=== PATIENT | male | born 1970 | race Caucasian/White ===

== ENCOUNTER 2017-02-13 09:00 | Inpatient (IN) | payer BC ==
--- NOTE | 2017-02-13 09:19 | PDOC ---
History of Present Illness - General Chief Complaint: Chest Pain Stated Complaint: SYNCOPE, CHEST PAIN Time Seen by Provider: 02/13/17 09:15 Exam Limitations: Clinical Condition - History of Present Illness Initial Comments: 02/13/17 09:15 46-year-old male with history of hypertension and psychiatric disease presents the emergency department initially complaining of chest pain and then passed out into a wheelchair in the lobby and was brought into the emergency department. The patient is unable to provide history. Past History - Past Medical History Allergies/Adverse Reactions: Allergies Allergy/AdvReac Type Severity Reaction Status Date / Time No Known Allergies Allergy Verified 02/13/17 09:24 Home Medications: Ambulatory Orders Amlodipine Besylate 5 mg PO DAILY 02/13/17 Cetirizine HCl [Zyrtec -] 10 mg PO DAILY 02/13/17 Duloxetine HCl 60 mg PO ASDIR 02/13/17 Escitalopram Oxalate [Lexapro -] 10 mg PO DAILY 02/13/17 - Psycho/Social/Smoking Cessation Hx Suicidal Ideation: No Smoking History: Never smoked Hx Alcohol Use: No Drug/Substance Use Hx: No Review of Systems - Review of Systems Able to Perform ROS?: No *Physical Exam - Vital Signs Last Vital Signs Temp Pulse Resp BP Pulse Ox 115 H 20 0/0 99 02/13/17 09:05 02/13/17 09:05 02/13/17 09:05 02/13/17 09:05 - Physical Exam Comments: 02/13/17 09:16 GENERAL: Well developed, well nourished. Responsive to deep painful stimuli with eye opening and verbalizing minimally. HEENT: Normocephalic, atraumatic. pupils are 8mm and reactive. No conjunctival pallor. Sclera are non-icteric. Moist mucous membranes. Oropharynx is clear. NECK: Supple. Full ROM. No JVD. No lymphadenopathy. CARDIOVASCULAR: Regular rate and rhythm, tachycardic. No murmurs, rubs, or gallops. Distal pulses are 2+ and symmetric. PULMONARY: No evidence of respiratory distress. Lungs clear to auscultation bilaterally. No wheezing, rales or rhonchi. ABDOMINAL: Soft. Non-tender. Non-distended. No rebound or guarding. No organomegaly. Normoactive bowel sounds. MUSCULOSKELETAL Unable to assess EXTREMITIES: No edema SKIN: Warm and dry. Normal capillary refill. No rashes. No jaundice. NEUROLOGICAL: Responsive to deep painful stimuli with eye opening and verbalizing minimally. There are +corneal reflexes. PSYCHIATRIC: Unable to assess. ED Treatment Course - LABORATORY CBC & Chemistry Diagram: 02/13/17 09:09 02/13/17 09:09 Medical Decision Making - Medical Decision Making 02/13/17 09:18 46-year-old male with history of hypertension and psychiatric disease with complaints of chest pain and syncope; he now has altered mental status. Differential diagnosis includes but is not limited to: ACS, CVA, intracranial hemorrhage, intoxication, electrolyte abnormality, infection, toxic/metabolic derangement. Plan: 1. EKGshows sinus tachycardia at [address]pm with no acute ST segment changes. 2. CT head 3. Chest x-ray 4. Labs 5. Urine analysis and urine drug screen 6. Observe and reevaluate 02/13/17 10:55 Addendum: The patient is now awake, alert and oriented. The patient complains of left-sided chest pain and requests medication because he says that he is grieving the loss of his father for the past 2 weeks. The patient states that he took Cymbalta this morning and has no recollection of the prior events that occurred upon his arrival to the emergency department; in fact he doesn't know how he got here. The labs are reviewed and are noted in the EMR. CT head is negative for acute pathology. Chest x-ray is negative. Urine drug screen is negative. The plan is to admit the patient to telemetry for serial cardiac markers, neurology checks and syncope workup. I have ordered Ativan 0.5 mg IV *DC/Admit/Observation/Transfer Diagnosis at time of Disposition: Altered mental status, Syncope, Chest pain - Discharge Dispostion Disposition: HOME Condition at time of disposition: Stable Admit: Yes
[2017-02-13 09:25] LABS: BASOPHIL 0.8 % (0-2.0); EOSINOPHIL 0.1 % (0-4.5); MCH 27.8 pg (25.7-33.7); MCHC 33.8 g/dl (32.0-35.9); MEAN CELL VOLUME 82.4 fl (80-96); MEAN PLT VOLUME 9.9 fl (7.5-11.1); NEUTROPHILS 82.8 % (42.8-82.8); PLATELET COUNT 201 K/MM3 (134-434); WHITE BLOOD COUNT 9.2 K/mm3 (4.0-10.8)
[2017-02-13 09:46] LABS: URINE APPEARANCE Clear; URINE BILIRUBIN Negative (NEGATIVE); URINE BLOOD Trace-lysed (NEGATIVE); URINE GLUCOSE (UA) Negative (NEGATIVE); URINE KETONE Negative (NEGATIVE); URINE LEUK ESTERASE Negative (NEGATIVE); URINE NITRITE Negative (NEGATIVE); URINE UROBILINOGEN 0.2 E.U/dl (0.2-1.0)
[2017-02-13 09:49] LABS: URINE COLOR YELLOW; URINE PROTEIN 2+ (NEGATIVE)
[2017-02-13 10:09] LABS: CPK(DFH) 366 IU/L (38-174)
[2017-02-13 10:12] LABS: ALBUMIN 4.5 g/dl (3.5-5.0); ALK PHOS 93 U/L (32-92); ANION GAP 15 (8-16); BILIRUBIN,TOTAL 0.4 mg/dl (0.2-1.0); CALCIUM 8.7 mg/dl (8.4-10.2); CO2 24 mmol/L (22-28); CREATININE 0.7 mg/dl (0.6-1.3); GLUCOSE,RANDOM 200 mg/dl (74-106); SGOT/AST 36 U/L (10-42); SGPT/ALT 40 U/L (10-40); TOT PROT 7.7 g/dl (6.4-8.3)
[2017-02-13 10:26] LABS: URINE MARIJUANA THC NEGATIVE ng/ml (CUTOFF=50)
[2017-02-13 10:37] LABS: TROPONIN I (DFP) < 0.03 ng/ml (0.03-0.50)
[2017-02-13] MEDS ORDERED: HEMOQUE TEST 1 EACH EACH ONE ×2 (10:41→14:21)
[2017-02-13] MEDS ORDERED: LORAZEPAM CARPU-JECT 2 MG/ML DISP.SYRIN ONE ×2 (10:57→13:40)
[2017-02-13 11:00] LABS: URINE BACTERIA RARE /hpf (NEGATIVE); URINE RBC 0-2 /hpf (0-3); URINE WBC NONE SEEN (3-5)
[2017-02-13] MEDS: LORAZEPAM CARPU-JECT 2 MG/ML DISP.SYRIN IVPUSH ONE (11:00)
[2017-02-13] MEDS ORDERED: SODIUM CHLORIDE 1,000 ML IV STA (11:50)
[2017-02-13] MEDS ORDERED: SODIUM CHLORIDE 1,000 ML IV ONE (12:08)
[2017-02-13] MEDS ORDERED: ONDANSETRON 4 MG/2 ML VIAL IVPUSH ONE ×2 (13:19→17:59)
[2017-02-13] MEDS ORDERED: FOLIC ACID INJECTION - 1 MG, THIAMINE HCL 100 MG, MULTIVIT INJECTION ADULT 10 ML in SOD... IVPB ONE (13:19)
[2017-02-13] MEDS ORDERED: ONDANSETRON 4 MG/2 ML VIAL ONE (13:19)
[2017-02-13] MEDS ORDERED: POTASSIUM CHLORIDE TABS 20 MEQ TABLET.ER (FP) PO ONE ×2 (13:21→15:25)
[2017-02-13] MEDS ORDERED: DULoxetine HCL 60 MG CAPSULE.DR PO SCH (13:30)
[2017-02-13] MEDS ORDERED: LORAZEPAM CARPU-JECT 2 MG/ML DISP.SYRIN IVPUSH ONE ×2 (13:40→18:44)
[2017-02-13] MEDS ORDERED: MULTIVIT INJ. ADULT COMBO WITH VIT K 1 COMBO 10 ML VIAL IV ONE (14:18)
[2017-02-13] MEDS ORDERED: FOLIC ACID 5 MG/1 ML ONE (14:18)
[2017-02-13] MEDS ORDERED: THIAMINE HCL 200 MG/2 ML VIAL ONE (14:18)
[2017-02-13] MEDS ORDERED: DULoxetine HCL 30 MG CAPSULE.DR (FP) PO ONE (15:35)
[2017-02-13 17:34] LABS: TROPONIN I (DFP) 0.03 ng/ml (0.03-0.50)
--- NOTE | 2017-02-13 17:53 | EKG ---
Test Reason : Blood Pressure : / mmHG Vent. Rate : 114 BPM Atrial Rate : 114 BPM P-R Int : 140 ms QRS Dur : 092 ms QT Int : 320 ms P-R-T Axes : 050 -30 048 degrees QTc Int : 441 ms POOR DATA QUALITY, INTERPRETATION MAY BE ADVERSELY AFFECTED SINUS TACHYCARDIA LEFT AXIS DEVIATION WHEN COMPARED WITH ECG OF 12-FEB-2000 17:43, NO SIGNIFICANT CHANGE WAS FOUND Confirmed by MD RACHAEL, RC ([id number] on 02/13/2017 5:52:29 PM Referred By: SHANTANU HARRINGTON Confirmed By:RC CANO MD
[2017-02-13] MEDS ORDERED: FAMOTIDINE 20 MG/50 ML IVPB 50 ML IVPB ONE (18:05)
[2017-02-13 18:23] LABS: CK MB 4.1 ng/ml (0.3-4.0)
[2017-02-13 20:29] VITALS: BMI 32.2
[2017-02-13] MEDS ORDERED: D5-1/2NS+20 MEQ KCL - 1,000 ML IV SCH (22:00)
[2017-02-13 22:32] LABS: CALCIUM 7.9 mg/dl (8.4-10.2); COCKROFT - GAULT 189.14; CREATININE 0.6 mg/dl (0.6-1.3)
[2017-02-13 22:35] LABS: CPK(DFH) 326 IU/L (38-174)
[2017-02-13 22:45] LABS: TROPONIN I (DFP) < 0.03 ng/ml (0.03-0.50)
[2017-02-13 23:10] LABS: CK MB 3.9 ng/ml (0.3-4.0)
--- NOTE | 2017-02-13 23:14 | HP ---
CHIEF COMPLAINT: chest pain/syncope PCP: Daniel in [place] HISTORY OF PRESENT ILLNESS: This is a 46 year old male with a past medical history of Hypertension who presented to the ED with a complaint of chest pain. Pt also s/p syncope in ED waiting room. Upon exam, pt with c/o throat pain; denies any further chest pain. States he is under a lot of stress. ER course was notable for: (1) WBC 9.2, lactic acid elevated (2) Potassium 3.4 (3) Trop negative, CK 366 (4) EtOH 331 Recent Travel: pt denies PAST MEDICAL HISTORY: HTN PAST SURGICAL HISTORY: pt denies Social History: Smoking: pt denies Alcohol: pt denies Drugs: pt denies Family History: mother in her 60s, unknown etiology father age 52, [place] 4 brothers all : one in sleep; one age 45, unknown; one age 55 , unknown cause; one age 20, unknown cause Allergies No Known Allergies Allergy (Verified 02/13/17 09:24) HOME MEDICATIONS: 3 Medication Instructions Recorded Amlodipine Besylate 5 mg PO DAILY 02/13/17 Cetirizine HCl [Zyrtec -] 10 mg PO DAILY 02/13/17 Duloxetine HCl 60 mg PO ASDIR 02/13/17 Escitalopram Oxalate [Lexapro -] 10 mg PO DAILY 02/13/17 REVIEW OF SYSTEMS CONSTITUTIONAL: Present: malaise Absent: fever, chills, diaphoresis, generalized weakness, loss of appetite, weight change HEENT: Absent: rhinorrhea, nasal congestion, throat pain, throat swelling, difficulty swallowing, mouth swelling, ear pain, eye pain, visual changes CARDIOVASCULAR: Present: chest pain, syncope Absent: palpitations, irregular heart rate, lightheadedness, peripheral edema RESPIRATORY: Absent: cough, shortness of breath, dyspnea with exertion, orthopnea, wheezing, stridor, hemoptysis GASTROINTESTINAL: Absent: abdominal pain, abdominal distension, nausea, vomiting, diarrhea, constipation, melena, hematochezia GENITOURINARY: Absent: dysuria, frequency, urgency, hesitancy, hematuria, flank pain, genital pain MUSCULOSKELETAL: Absent: myalgia, arthralgia, joint swelling, back pain, neck pain SKIN: Absent: rash, itching, pallor HEMATOLOGIC/IMMUNOLOGIC: Absent: easy bleeding, easy bruising, lymphadenopathy, frequent infections ENDOCRINE: Absent: unexplained weight gain, unexplained weight loss, heat intolerance, cold intolerance NEUROLOGIC: Absent: headache, focal weakness or paresthesias, dizziness, unsteady gait, seizure, mental status changes, bladder or bowel incontinence PSYCHIATRIC: Absent: anxiety, depression, suicidal or homicidal ideation, hallucinations. PHYSICAL EXAMINATION Vital Signs - 24 hr 3 02/13/17 02/13/17 02/13/17 16:20 18:51 20:24 Temperature 98.2 F 99.1 F Pulse Rate 113 H Pulse Rate [ 81 116 H Apical] Respiratory 17 18 19 Rate Blood Pressure 157/83 Blood Pressure 140/86 178/101 [Right Arm] O2 Sat by Pulse 100 97 95 Oximetry (%) GENERAL: Awake, alert, and fully oriented, in no acute distress. HEAD: Normal with no signs of trauma. EYES: Pupils equal, round and reactive to light, extraocular movements intact, sclera anicteric, conjunctiva clear. No lid lag. EARS, NOSE, THROAT: Ears normal, nares patent, oropharynx clear without exudates. Moist mucous membranes. NECK: Normal range of motion, supple without lymphadenopathy, JVD, or masses. LUNGS: Breath sounds equal, clear to auscultation bilaterally. No wheezes, and no crackles. No accessory muscle use. HEART: Regular rate and rhythm, normal S1 and S2 without murmur, rub or gallop. ABDOMEN: Soft, nontender, not distended, normoactive bowel sounds, no guarding, no rebound, no masses. No hepatomegaly or splenomegaly. MUSCULOSKELETAL: Normal range of motion at all joints. No bony deformities or tenderness. No CVA tenderness. UPPER EXTREMITIES: 2+ pulses, warm, well-perfused. No cyanosis. No clubbing. No peripheral edema. LOWER EXTREMITIES: 2+ pulses, warm, well-perfused. No calf tenderness. No peripheral edema. NEUROLOGICAL: Cranial nerves II-XII intact. Normal speech. Normal gait. PSYCHIATRIC: Cooperative. Good eye contact. Appropriate mood and affect. SKIN: Warm, dry, normal turgor, no rashes or lesions noted, normal capillary refill. Laboratory Results - last 24 hr 3 02/13/17 02/13/17 02/13/17 02/13/17 02/13/17 09:09 09:09 09:09 09:32 12:43 WBC 9.2 RBC 5.61 H Hgb 15.6 Hct 46.2 MCV 82.4 MCHC 33.8 RDW 14.0 Plt Count 201 MPV 9.9 Neutrophils % 82.8 Lymphocytes % 10.7 Monocytes % 5.6 Eosinophils % 0.1 Basophils % 0.8 Sodium 141 Potassium 3.4 L Chloride 102 Carbon Dioxide 24 Anion Gap 15 BUN 19 H Creatinine 0.7 Creat Clearance w eGFR > 60 Random Glucose 200 H Lactic Acid 4.8 H* 3.5 H* Calcium 8.7 Total Bilirubin 0.4 AST 36 ALT 40 Alkaline Phosphatase 93 H Creatine Kinase 366 H Creatine Kinase Index CK-MB (CK-2) Cancelled CK-MB (CK-2) Rel Index 1.3 Troponin I < 0.03 L Total Protein 7.7 Albumin 4.5 Urine Color Urine Appearance Urine pH Ur Specific [place] Urine Protein Urine Glucose (UA) Urine Ketones Urine Blood Urine Nitrite Urine Bilirubin Urine Urobilinogen Ur Leukocyte Esterase Urine RBC Urine WBC Ur Epithelial Cells Urine Bacteria Opiates Screen Methadone Screen Barbiturate Screen Phencyclidine Screen Ur Amphetamines Screen MDMA (Ecstasy) Screen Benzodiazepines Screen Cocaine Screen U Marijuana (THC) Screen Alcohol, Quantitative 3 02/13/17 02/13/17 02/13/17 09:09 09:09 09:09 WBC RBC Hgb Hct MCV MCHC RDW Plt Count MPV Neutrophils % Lymphocytes % Monocytes % Eosinophils % Basophils % Sodium Potassium Chloride Carbon Dioxide Anion Gap BUN Creatinine Creat Clearance w eGFR Random Glucose Lactic Acid Calcium Total Bilirubin AST ALT Alkaline Phosphatase Creatine Kinase Creatine Kinase Index CK-MB (CK-2) CK-MB (CK-2) Rel Index Troponin I Total Protein Albumin Urine Color Yellow Urine Appearance Clear Urine pH 6.0 Ur Specific [place] >= 1.030 H Urine Protein 2+ H Urine Glucose (UA) Negative Urine Ketones Negative Urine Blood Trace-lysed Urine Nitrite Negative Urine Bilirubin Negative Urine Urobilinogen 0.2 e.u/dl Ur Leukocyte Esterase Negative Urine RBC 0-2 Urine WBC None seen Ur Epithelial Cells None seen Urine Bacteria Rare Opiates Screen Negative Methadone Screen Negative Barbiturate Screen Negative Phencyclidine Screen Negative Ur Amphetamines Screen Negative MDMA (Ecstasy) Screen Negative Benzodiazepines Screen Negative Cocaine Screen Negative U Marijuana (THC) Screen Negative Alcohol, Quantitative 331.2 H* 3 02/13/17 02/13/17 02/13/17 16:30 16:30 22:00 Sodium 139 Potassium 4.0 Chloride 105 Carbon Dioxide 25 Anion Gap 9 BUN 14 D Creatinine 0.6 Random Glucose 129 H D Calcium 7.9 L Creatine Kinase 310 H 326 H Creatine Kinase Index Cancelled CK-MB (CK-2) 4.1 H 3.9 Troponin I 0.03 < 0.03 L ECG: sinus tachycardia, Rate 114, QTC 441, Left axis deviation Imaging HEAD CT WITHOUT CONTRAST Clinical information. Unresponsive. CT scan of the brain C-. Findings. Serial axial images of the brain were obtained from foramen magnum to the cranial vertex without intravenous contrast. The head was tilted Whitney the acquisition of images. CSF spaces are age-appropriate. There is no evidence of acute subarachnoid hemorrhage, acute intra-axial or extra-axial fluid collection consistent with subdural or epidural hematoma. No mass effect, midline shift, herniation or edema is present. The cortical sulci, sylvian fissures, perimesencephalic cisterns are not effaced. Examination of the bone windows show no fracture. Retention cyst noted in the left maxillary sinus. No evidence of opacification of the visualized remaining paranasal sinuses, mastoid air cells. Impression. No evidence of acute intracranial hemorrhage, edema, midline shift, mass effect, herniation or skull fracture. No CT evidence of acute territorial infarction. No CT evidence of acute territorial infarction. RAD/CHEST - PA Unresponsive. Single portable chest x-ray. Shallow inspiration. Patient is rotated toward the right side. Cardiomegaly. Left lower lung zone obscured by the soft tissues of the chest. No airspace opacities are seen in the visualized lungs. No large pleural effusion is seen within the limitation of examination. EKG leads are noted. Impression. No pneumothorax, vascular congestion is seen. Limited evaluation of the lung parenchyma in the left lower lung zone, obscured by the soft tissues of the chest. Segmental left lower lobe infiltrate cannot be entirely excluded. Repeat study recommended. No airspace opacities are seen in the left upper lung zone, right lung. ASSESSMENT/PLAN: 46yM with PMH HTN who presented to the ED with chest pain and had a syncopal episode in ED. Pt has been admitted for further evaluation. Chest pain - troponin neg x 2 so far, repeat x 1 more - cont to control BP with home norvasc - doubtful ACS, pain has resolved and pt reports feeling bad about in family, likely emotional/stress related etiology - consider CTA/d-dimer to r/o PE if tachycardia persists despite IV hydration. syncope - head CT without acute CT changes - monitor on tele, r/o ectopy - will obtain echo given cardiomegaly on CXR Lactic acidosis - lactic acid trending down. Unclear etiology as pt does not appear septic or have any infectious related complaints. - cont to trend lactic acid. May be due to hypovolemia due to ETOH. - will repeat chest xray in am for better view ETOH abuse - pt denies daily alcohol use but does admit to heavy drinking 1-2 x weekly - Alcohol level 331 on admission - will cont IV hydration. s/p banana bag - monitor closely for any s/s withdrawal and start librium protocol. Mood disorder/depression - cont home duloxetine and lexapro - consider psychiatry consult DVT PPX - chemoprophylaxis deferred as expected LOS <48, reassess if LOS extends this period FEN - NS @ 125cc/hr - K repleted, repeat WNL, repeat BMP in am - low sodium diet as tolerated Dispo: Pt currently requires inpatient observation for management of his emergent condition. Expected LOS <48h Visit type - Emergency Visit Emergency Visit: Yes ED Registration Date: 02/13/17 Care time: The patient presented to the Emergency Department on the above date and was hospitalized for further evaluation of their emergent condition. - New Patient This patient is new to me today: Yes Date on this admission: 02/14/17 - Critical Care Critical Care patient: No
[2017-02-13 23:26] LABS: MAGNESIUM 1.8 mg/dL (1.8-2.4); PHOSPHOROUS 2.7 mg/dl (2.5-4.6)
[2017-02-14] MEDS ORDERED: SODIUM CHLORIDE 1,000 ML IV SCH ×2 (00:15→08:38)
[2017-02-14] MEDS ORDERED: LORAZEPAM CARPU-JECT 2 MG/ML DISP.SYRIN ONE (06:49)
[2017-02-14] MEDS: LORAZEPAM CARPU-JECT 2 MG/ML DISP.SYRIN IVPUSH ONE (06:53)
--- NOTE | 2017-02-14 08:29 | PN ---
Physical Exam: SUBJECTIVE: Patient seen and examined, patient reports ongoing epigastric pain with nausea, he reports feeling anxious, pt denies any chest pain or shortness of breath. OBJECTIVE: patient is a 46 y/o male with a past medical of hypertension and depression. patient was admitted for emergent condition. Vital Signs Period Temp Pulse Resp BP Sys/[place] Pulse Ox Last 24 Hr 98.2 F-99.1 F 81-116 17-20 140-182/83-101 95-100 GENERAL: The patient is awake, alert, and anxious, agitated. HEAD: Normal with no signs of trauma. EYES: PERRL, extraocular movements intact, sclera anicteric, conjunctiva clear. No ptosis. ENT: Ears normal, nares patent, oropharynx clear without exudates, moist mucous membranes. NECK: Trachea midline, full range of motion, supple. LUNGS: Breath sounds equal, clear to auscultation bilaterally, no wheezes, no crackles, no accessory muscle use. RR 24 HEART: Regular rate and rhythm, S1, S2 without murmur, rub or gallop. ABDOMEN: Soft, nontender, nondistended, normoactive bowel sounds, no guarding, no rebound, no hepatosplenomegaly, no masses. EXTREMITIES: 2+ pulses, warm, well-perfused, no edema, fine bilateral hand tremors NEUROLOGICAL: Cranial nerves II through XII grossly intact. Normal speech, gait not observed. PSYCH: Normal mood, normal affect. SKIN: Warm, dry, normal turgor, no rashes or lesions noted Laboratory Results - last 24 hr CBC WBC 8.4 K/mm3 (4.0-10.8) 02/14/17 08:10 RBC 5.23 M/mm3 (4.00-5.60) 02/14/17 08:10 Hgb 14.6 GM/dl (11.7-16.9) 02/14/17 08:10 Hct 43.2 % (35.4-49) 02/14/17 08:10 MCV 82.6 fl (80-96) 02/14/17 08:10 MCHC 33.8 g/dl (32.0-35.9) 02/14/17 08:10 RDW 13.9 % (11.9-15.9) 02/14/17 08:10 Plt Count 170 K/MM3 (134-434) 02/14/17 08:10 MPV 10.1 fl (7.5-11.1) 02/14/17 08:10 Neutrophils % 78.9 % (42.8-82.8) 02/14/17 08:10 Lymphocytes % 10.9 % (8-40) 02/14/17 08:10 Monocytes % 8.6 % (3.8-10.2) 02/14/17 08:10 Eosinophils % 0.8 % (0-4.5) D 02/14/17 08:10 Basophils % 0.8 % (0-2.0) 02/14/17 08:10 CMP Sodium 137 mmol/L (136-145) 02/14/17 08:10 Potassium 3.8 mmol/L (3.5-5.1) 02/14/17 08:10 Chloride 102 mmol/L (98-107) 02/14/17 08:10 Carbon Dioxide 25 mmol/L (22-28) 02/14/17 08:10 Anion Gap 10 (8-16) 02/14/17 08:10 BUN 11 mg/dl (7-18) D 02/14/17 08:10 Creatinine 0.6 mg/dl (0.6-1.3) 02/14/17 08:10 Creat Clearance w eGFR > 60 (>60) 02/13/17 09:09 Random Glucose 123 mg/dl (74-106) H 02/14/17 08:10 Hemoglobin A1c % 6.0 % (4.8-6.0) 02/14/17 08:10 Lactic Acid 2.2 mmol/L (0.4-2.0) H* 02/14/17 08:10 Calcium 8.3 mg/dl (8.4-10.2) L 02/14/17 08:10 Phosphorus 2.7 mg/dl (2.5-4.6) 02/13/17 22:00 Magnesium 1.8 mg/dL (1.8-2.4) 02/13/17 22:00 Total Bilirubin 0.4 mg/dl (0.2-1.0) 02/13/17 09:09 AST 36 U/L (10-42) 02/13/17 09:09 ALT 40 U/L (10-40) 02/13/17 09:09 Alkaline Phosphatase 93 U/L (32-92) H 02/13/17 09:09 Creatine Kinase 326 IU/L (38-174) H 02/13/17 22:00 Creatine Kinase Index Cancelled 02/13/17 16:30 CK-MB (CK-2) 3.9 ng/ml (0.3-4.0) 02/13/17 22:00 CK-MB (CK-2) Rel Index 1.3 % (0.0-5.0) 02/13/17 09:09 Troponin I < 0.03 ng/ml (0.03-0.50) L 02/13/17 22:00 Total Protein 7.7 g/dl (6.4-8.3) 02/13/17 09:09 Albumin 4.5 g/dl (3.5-5.0) 02/13/17 09:09 Active Medications Generic Name Dose Route Start Last Admin Trade Name Freq PRN Reason Stop Dose Admin Amlodipine Besylate 10 mg 02/14/17 10:00 02/14/17 09:38 Norvasc - PO 10 mg DAILY SAAD Administration Chlordiazepoxide HCl 25 mg 02/14/17 10:17 Librium - PO 02/17/17 10:16 Q4H PRN WITHDRAWAL(CONT SUBST) Chlordiazepoxide HCl 50 mg 02/14/17 11:00 02/14/17 11:12 Librium - PO 02/15/17 05:01 50 mg [id number] SAAD Administration Chlordiazepoxide HCl 25 mg 02/15/17 11:00 Librium - PO 02/16/17 05:01 [id number] SAAD Chlordiazepoxide HCl 15 mg 02/16/17 11:00 Librium - PO 02/17/17 05:01 [id number] SAAD Duloxetine HCl 60 mg 02/14/17 10:00 02/14/17 10:33 Cymbalta - PO 60 mg DAILY SAAD Administration Escitalopram Oxalate 10 mg 02/15/17 10:00 Lexapro - PO DAILY SAAD Folic Acid 1 mg 02/14/17 15:00 Folic Acid - PO DAILY SAAD Sodium Chloride 1,000 mls @ 75 mls/hr 02/14/17 08:38 02/14/17 08:40 Normal Saline - IV 75 mls/hr ASDIR SAAD Administration Multivitamins/Minerals/Vitamin C 1 tab 02/14/17 15:00 Tab-A-Vit - PO DAILY SAAD Imaging HEAD CT WITHOUT CONTRAST. Impression. No evidence of acute intracranial hemorrhage, edema, midline shift, mass effect, herniation or skull fracture. No CT evidence of acute territorial infarction. No CT evidence of acute territorial infarction. RAD/CHEST - Impression. No pneumothorax, vascular congestion is seen. Limited evaluation of the lung parenchyma in the left lower lung zone, obscured by the soft tissues of the chest. Segmental left lower lobe infiltrate cannot be entirely excluded. Repeat study recommended. No airspace opacities are seen in the left upper lung zone, right lung. CTA OF CHEST- no pulmonary embolism no acute pathology CT OF ABD/PELVIS- diffuse fatty liver, no acute pathology ASSESSMENT/PLAN: 1) card Chest pain - troponin x 3 wnl, sinus tach noted on cardiac monitoring, cta of chest negative for PE - pending echo hypertension - b/p elevated, increase norvasc, will start toprol - b/p monitoring q4h syncope - likely secondary due to hypovolemia, continous cardiac monitoring 2) psych ETOH abuse - admits drinking daily (1 bottle of rum) for the past 2 weeks - ciwa-ar score of 15, will start librium protocol with close monitoring of sedation, q4h neurochecks - appreciate input of Dr Marshall depression - continue duloxetine and lexapro 3) lactic acidosis - trending downward, secondary to hypovolemia, doubt infectious origin, f/u blood and urine culture PPX - lovenox - protonix - oob - scd FEN - d51/2 NS @ 75ml/hr - low sodium diet Dispo: Pt requires inpatient telemetry Visit type - Emergency Visit Emergency Visit: Yes ED Registration Date: 02/13/17 Care time: The patient presented to the Emergency Department on the above date and was hospitalized for further evaluation of their emergent condition. - New Patient This patient is new to me today: Yes Date on this admission: 02/14/17 - Critical Care Critical Care patient: No - Discharge Referral Referred to [facility] No
[2017-02-14 08:41] LABS: BASOPHIL 0.8 % (0-2.0); EOSINOPHIL 0.8 % (0-4.5); MCHC 33.8 g/dl (32.0-35.9); MEAN CELL VOLUME 82.6 fl (80-96); MEAN PLT VOLUME 10.1 fl (7.5-11.1); NEUTROPHILS 78.9 % (42.8-82.8); PLATELET COUNT 170 K/MM3 (134-434); RDW 13.9 % (11.9-15.9); WHITE BLOOD COUNT 8.4 K/mm3 (4.0-10.8)
[2017-02-14] MEDS ORDERED: PANTOPRAZOLE SODIUM 100 ML IVPB ONE (09:00)
[2017-02-14 09:14] LABS: ANION GAP 10 (8-16); CALCIUM 8.3 mg/dl (8.4-10.2); CO2 25 mmol/L (22-28); CREATININE 0.6 mg/dl (0.6-1.3); GLUCOSE,RANDOM 123 mg/dl (74-106)
[2017-02-14] MEDS: amLODIPine BESYLATE 10 MG TABLET (FP) PO SCH (09:38)
[2017-02-14] MEDS ORDERED: ESCITALOPRAM OXALATE 10 MG TABLET (FP) PO SCH ×2 (10:00)
[2017-02-14] MEDS ORDERED: amLODIPine BESYLATE 5 MG TABLET (FP) PO SCH (10:00)
[2017-02-14] MEDS ORDERED: chlordiazePOXIDE HCL 25 MG CAPSULE PO PRN (10:17)
[2017-02-14] MEDS ORDERED: chlordiazePOXIDE HCL 25 MG CAPSULE PO ONE (10:30)
[2017-02-14] MEDS: DULoxetine HCL 30 MG CAPSULE.DR (FP) PO SCH (10:33)
[2017-02-14] MEDS ORDERED: LORAZEPAM CARPU-JECT 2 MG/ML DISP.SYRIN IVPUSH ONE (11:00)
[2017-02-14] MEDS: chlordiazePOXIDE HCL 25 MG CAPSULE PO SCH ×3 (11:12→22:20)
[2017-02-14] MEDS: D5-1/2NS+20 MEQ KCL - 1,000 ML IV SCH (15:00)
[2017-02-14] MEDS ORDERED: MAGNESIUM SULF 50% (8.12 MEQ/2 ML-1 GM VIAL) IVPB ONE (15:06)
--- NOTE | 2017-02-14 15:43 | CONSULT ---
Consult Detox [facility] Reason for Current Admission/Consult: Alcohol withdrawal sx. Referred by:: Alesha Lora NP - History Source History Provided By: Medical Record - Alcohol/Substance Use Hx Alcohol Use: Yes (PT DENEIS) - Significant Medical Findings: Laboratory Tests 02/13/17 02/13/17 02/13/17 09:09 09:09 09:09 WBC 9.2 RBC 5.61 H Hgb 15.6 Hct 46.2 MCV 82.4 MCHC 33.8 RDW 14.0 Plt Count 201 MPV 9.9 Neutrophils % 82.8 Lymphocytes % 10.7 Monocytes % 5.6 Eosinophils % 0.1 Basophils % 0.8 D-Dimer Sodium 141 Potassium 3.4 L Chloride 102 Carbon Dioxide 24 Anion Gap 15 BUN 19 H Creatinine 0.7 Creat Clearance w eGFR > 60 Random Glucose 200 H Hemoglobin A1c % Lactic Acid Calcium 8.7 Phosphorus Magnesium Total Bilirubin 0.4 AST 36 ALT 40 Alkaline Phosphatase 93 H Creatine Kinase 366 H Creatine Kinase Index CK-MB (CK-2) Cancelled CK-MB (CK-2) Rel Index 1.3 Troponin I < 0.03 L Total Protein 7.7 Albumin 4.5 Urine Color Urine Appearance Urine pH Ur Specific [place] Urine Protein Urine Glucose (UA) Urine Ketones Urine Blood Urine Nitrite Urine Bilirubin Urine Urobilinogen Ur Leukocyte Esterase Urine RBC Urine WBC Ur Epithelial Cells Urine Bacteria Opiates Screen Methadone Screen Barbiturate Screen Phencyclidine Screen Ur Amphetamines Screen MDMA (Ecstasy) Screen Benzodiazepines Screen Cocaine Screen U Marijuana (THC) Screen Alcohol, Quantitative 02/13/17 02/13/17 02/13/17 09:09 09:09 09:09 WBC RBC Hgb Hct MCV MCHC RDW Plt Count MPV Neutrophils % Lymphocytes % Monocytes % Eosinophils % Basophils % D-Dimer Sodium Potassium Chloride Carbon Dioxide Anion Gap BUN Creatinine Creat Clearance w eGFR Random Glucose Hemoglobin A1c % Lactic Acid Calcium Phosphorus Magnesium Total Bilirubin AST ALT Alkaline Phosphatase Creatine Kinase Creatine Kinase Index CK-MB (CK-2) CK-MB (CK-2) Rel Index Troponin I Total Protein Albumin Urine Color Yellow Urine Appearance Clear Urine pH 6.0 Ur Specific [place] >= 1.030 H Urine Protein 2+ H Urine Glucose (UA) Negative Urine Ketones Negative Urine Blood Trace-lysed Urine Nitrite Negative Urine Bilirubin Negative Urine Urobilinogen 0.2 e.u/dl Ur Leukocyte Esterase Negative Urine RBC 0-2 Urine WBC None seen Ur Epithelial Cells None seen Urine Bacteria Rare Opiates Screen Negative Methadone Screen Negative Barbiturate Screen Negative Phencyclidine Screen Negative Ur Amphetamines Screen Negative MDMA (Ecstasy) Screen Negative Benzodiazepines Screen Negative Cocaine Screen Negative U Marijuana (THC) Screen Negative Alcohol, Quantitative 331.2 H* 02/13/17 02/13/17 02/13/17 09:32 12:43 16:30 WBC RBC Hgb Hct MCV MCHC RDW Plt Count MPV Neutrophils % Lymphocytes % Monocytes % Eosinophils % Basophils % D-Dimer Sodium Potassium Chloride Carbon Dioxide Anion Gap BUN Creatinine Creat Clearance w eGFR Random Glucose Hemoglobin A1c % Lactic Acid 4.8 H* 3.5 H* Calcium Phosphorus Magnesium Total Bilirubin AST ALT Alkaline Phosphatase Creatine Kinase 310 H Creatine Kinase Index CK-MB (CK-2) 4.1 H CK-MB (CK-2) Rel Index Troponin I 0.03 Total Protein Albumin Urine Color Urine Appearance Urine pH Ur Specific [place] Urine Protein Urine Glucose (UA) Urine Ketones Urine Blood Urine Nitrite Urine Bilirubin Urine Urobilinogen Ur Leukocyte Esterase Urine RBC Urine WBC Ur Epithelial Cells Urine Bacteria Opiates Screen Methadone Screen Barbiturate Screen Phencyclidine Screen Ur Amphetamines Screen MDMA (Ecstasy) Screen Benzodiazepines Screen Cocaine Screen U Marijuana (THC) Screen Alcohol, Quantitative 02/13/17 02/13/17 02/13/17 16:30 22:00 22:00 WBC RBC Hgb Hct MCV MCHC RDW Plt Count MPV Neutrophils % Lymphocytes % Monocytes % Eosinophils % Basophils % D-Dimer Sodium 139 Potassium 4.0 Chloride 105 Carbon Dioxide 25 Anion Gap 9 BUN 14 D Creatinine 0.6 Creat Clearance w eGFR Random Glucose 129 H D Hemoglobin A1c % Lactic Acid Calcium 7.9 L Phosphorus Magnesium Total Bilirubin AST ALT Alkaline Phosphatase Creatine Kinase 326 H Creatine Kinase Index Cancelled CK-MB (CK-2) Cancelled 3.9 CK-MB (CK-2) Rel Index Troponin I < 0.03 L Total Protein Albumin Urine Color Urine Appearance Urine pH Ur Specific [place] Urine Protein Urine Glucose (UA) Urine Ketones Urine Blood Urine Nitrite Urine Bilirubin Urine Urobilinogen Ur Leukocyte Esterase Urine RBC Urine WBC Ur Epithelial Cells Urine Bacteria Opiates Screen Methadone Screen Barbiturate Screen Phencyclidine Screen Ur Amphetamines Screen MDMA (Ecstasy) Screen Benzodiazepines Screen Cocaine Screen U Marijuana (THC) Screen Alcohol, Quantitative 02/13/17 02/13/17 02/14/17 22:00 22:00 08:10 WBC 8.4 RBC 5.23 Hgb 14.6 Hct 43.2 MCV 82.6 MCHC 33.8 RDW 13.9 Plt Count 170 MPV 10.1 Neutrophils % 78.9 Lymphocytes % 10.9 Monocytes % 8.6 Eosinophils % 0.8 D Basophils % 0.8 D-Dimer Sodium Potassium Chloride Carbon Dioxide Anion Gap BUN Creatinine Creat Clearance w eGFR Random Glucose Hemoglobin A1c % Lactic Acid 2.5 H* Calcium Phosphorus 2.7 Magnesium 1.8 Total Bilirubin AST ALT Alkaline Phosphatase Creatine Kinase Creatine Kinase Index CK-MB (CK-2) CK-MB (CK-2) Rel Index Troponin I Total Protein Albumin Urine Color Urine Appearance Urine pH Ur Specific [place] Urine Protein Urine Glucose (UA) Urine Ketones Urine Blood Urine Nitrite Urine Bilirubin Urine Urobilinogen Ur Leukocyte Esterase Urine RBC Urine WBC Ur Epithelial Cells Urine Bacteria Opiates Screen Methadone Screen Barbiturate Screen Phencyclidine Screen Ur Amphetamines Screen MDMA (Ecstasy) Screen Benzodiazepines Screen Cocaine Screen U Marijuana (THC) Screen Alcohol, Quantitative 02/14/17 02/14/17 02/14/17 08:10 08:10 08:10 WBC RBC Hgb Hct MCV MCHC RDW Plt Count MPV Neutrophils % Lymphocytes % Monocytes % Eosinophils % Basophils % D-Dimer 555 H Sodium 137 Potassium 3.8 Chloride 102 Carbon Dioxide 25 Anion Gap 10 BUN 11 D Creatinine 0.6 Creat Clearance w eGFR Random Glucose 123 H Hemoglobin A1c % Lactic Acid 2.2 H* Calcium 8.3 L Phosphorus Magnesium Total Bilirubin AST ALT Alkaline Phosphatase Creatine Kinase Creatine Kinase Index CK-MB (CK-2) CK-MB (CK-2) Rel Index Troponin I Total Protein Albumin Urine Color Urine Appearance Urine pH Ur Specific [place] Urine Protein Urine Glucose (UA) Urine Ketones Urine Blood Urine Nitrite Urine Bilirubin Urine Urobilinogen Ur Leukocyte Esterase Urine RBC Urine WBC Ur Epithelial Cells Urine Bacteria Opiates Screen Methadone Screen Barbiturate Screen Phencyclidine Screen Ur Amphetamines Screen MDMA (Ecstasy) Screen Benzodiazepines Screen Cocaine Screen U Marijuana (THC) Screen Alcohol, Quantitative 02/14/17 02/14/17 08:10 08:10 WBC RBC Hgb Hct MCV MCHC RDW Plt Count MPV Neutrophils % Lymphocytes % Monocytes % Eosinophils % Basophils % D-Dimer Sodium Potassium Chloride Carbon Dioxide Anion Gap BUN Creatinine Creat Clearance w eGFR Random Glucose Hemoglobin A1c % 6.0 Lactic Acid Calcium Phosphorus Magnesium Total Bilirubin AST ALT Alkaline Phosphatase Creatine Kinase Creatine Kinase Index CK-MB (CK-2) CK-MB (CK-2) Rel Index Troponin I Total Protein Albumin Urine Color Urine Appearance Urine pH Ur Specific [place] Urine Protein Urine Glucose (UA) Urine Ketones Urine Blood Urine Nitrite Urine Bilirubin Urine Urobilinogen Ur Leukocyte Esterase Urine RBC Urine WBC Ur Epithelial Cells Urine Bacteria Opiates Screen Methadone Screen Barbiturate Screen Phencyclidine Screen Ur Amphetamines Screen MDMA (Ecstasy) Screen Benzodiazepines Screen Cocaine Screen U Marijuana (THC) Screen Alcohol, Quantitative < 5.0 labs noted BAL 331.2 on admission Assessment Plan - Diagnosis (1) Alcohol dependence with uncomplicated withdrawal Status: Acute - Medication Detox Regimen/Protocol: Librium
[2017-02-14] MEDS: ENOXAPARIN NA (PORCINE) 40 MG/0.4 ML DISP.SYRIN SQ SCH (16:00)
[2017-02-14] MEDS: METOPROLOL SUCCINATE 25 MG TAB.SR.24H (FP) PO SCH (16:35)
[2017-02-14] MEDS: MULTIVITAMINS (DAILY MVI) TABLET (FP) PO SCH (16:36)
[2017-02-14] MEDS: FOLIC ACID 1 MG TABLET (FP) PO SCH (16:36)
[2017-02-14] MEDS: ACETAMINOPHEN 325 MG TABLET (FP) PO PRN (20:15)
[2017-02-15] MEDS: chlordiazePOXIDE HCL 25 MG CAPSULE PO SCH ×4 (05:20→22:41)
[2017-02-15 08:27] LABS: EOSINOPHIL 5.1 % (0-4.5); MCH 27.2 pg (25.7-33.7); MCHC 32.9 g/dl (32.0-35.9); MEAN CELL VOLUME 82.6 fl (80-96); MEAN PLT VOLUME 10.4 fl (7.5-11.1); NEUTROPHILS 60.9 % (42.8-82.8); PLATELET COUNT 179 K/MM3 (134-434); RDW 13.9 % (11.9-15.9); WHITE BLOOD COUNT 4.6 K/mm3 (4.0-10.8)
[2017-02-15 08:31] LABS: ALBUMIN 3.9 g/dl (3.5-5.0); ALK PHOS 130 U/L (32-92); ANION GAP 10 (8-16); BILIRUBIN,TOTAL 1.2 mg/dl (0.2-1.0); CALCIUM 8.8 mg/dl (8.4-10.2); CO2 26 mmol/L (22-28); CREATININE 0.7 mg/dl (0.6-1.3); GLUCOSE,RANDOM 147 mg/dl (74-106); MAGNESIUM 2.1 mg/dL (1.8-2.4); PHOSPHOROUS 2.7 mg/dl (2.5-4.6); SGOT/AST 38 U/L (10-42); SGPT/ALT 40 U/L (10-40); TOT PROT 6.9 g/dl (6.4-8.3)
[2017-02-15] MEDS: ESCITALOPRAM OXALATE 10 MG TABLET (FP) PO SCH (10:01)
[2017-02-15] MEDS: amLODIPine BESYLATE 10 MG TABLET (FP) PO SCH (10:01)
[2017-02-15] MEDS: METOPROLOL SUCCINATE 25 MG TAB.SR.24H (FP) PO SCH (10:01)
[2017-02-15] MEDS: DULoxetine HCL 30 MG CAPSULE.DR (FP) PO SCH (10:01)
[2017-02-15] MEDS: FOLIC ACID 1 MG TABLET (FP) PO SCH (10:01)
[2017-02-15] MEDS: MULTIVITAMINS (DAILY MVI) TABLET (FP) PO SCH (10:01)
[2017-02-15] MEDS: ENOXAPARIN NA (PORCINE) 40 MG/0.4 ML DISP.SYRIN SQ SCH (10:01)
--- NOTE | 2017-02-15 11:26 | PN ---
Physical Exam: SUBJECTIVE: Patient seen and examined at bedside. The patient c/o lower back "warmth" with accompanying nausea. OBJECTIVE: Vital Signs 3 Period Temp Pulse Resp BP Sys/[place] Pulse Ox Last 24 Hr 98.4 F-99.0 F 91-116 18-19 145-172/80-96 94-98 GENERAL: The patient is awake, alert, and fully oriented, in no acute distress. HEAD: Normal with no signs of trauma. EYES: PERRL, extraocular movements intact, sclera anicteric, conjunctiva clear. No ptosis. ENT: Ears normal, nares patent, oropharynx clear without exudates, moist mucous membranes. NECK: Trachea midline, full range of motion, supple. LUNGS: Breath sounds equal, clear to auscultation bilaterally, no wheezes, no crackles, no accessory muscle use. HEART: Regular rate and rhythm, S1, S2 without murmur, rub or gallop. ABDOMEN: Soft, nontender, nondistended, normoactive bowel sounds, no guarding, no rebound, no hepatosplenomegaly, no masses. No CVAT. EXTREMITIES: 2+ pulses, warm, well-perfused, no edema. NEUROLOGICAL: Cranial nerves II through XII grossly intact. Normal speech, gait not observed. CIWA-14 PSYCH: Normal mood, normal affect. SKIN: Warm, dry, normal turgor, no rashes or lesions noted Laboratory Results - last 24 hr 3 02/14/17 02/15/17 02/15/17 08:10 07:40 07:40 WBC 4.6 D RBC 5.52 Hgb 15.0 Hct 45.6 MCV 82.6 MCHC 32.9 RDW 13.9 Plt Count 179 MPV 10.4 Neutrophils % 60.9 D Lymphocytes % 23.9 D Monocytes % 9.1 Eosinophils % 5.1 H D Basophils % 1.0 Sodium 136 Potassium 3.6 Chloride 100 Carbon Dioxide 26 Anion Gap 10 BUN 11 Creatinine 0.7 Creat Clearance w eGFR > 60 Random Glucose 147 H Hemoglobin A1c % 6.0 Lactic Acid Calcium 8.8 Phosphorus 2.7 Magnesium 2.1 Total Bilirubin 1.2 H D AST 38 ALT 40 Alkaline Phosphatase 130 H D Total Protein 6.9 Albumin 3.9 3 02/15/17 07:40 WBC RBC Hgb Hct MCV MCHC RDW Plt Count MPV Neutrophils % Lymphocytes % Monocytes % Eosinophils % Basophils % Sodium Potassium Chloride Carbon Dioxide Anion Gap BUN Creatinine Creat Clearance w eGFR Random Glucose Hemoglobin A1c % Lactic Acid 1.6 Calcium Phosphorus Magnesium Total Bilirubin AST ALT Alkaline Phosphatase Total Protein Albumin Active Medications 3 Generic Name Dose Route Start Last Admin Trade Name Freq PRN Reason Stop Dose Admin Acetaminophen 650 mg 02/14/17 15:07 02/14/17 20:15 Tylenol - PO 650 mg Q4H PRN Administration FEVER OR PAIN Amlodipine Besylate 10 mg 02/14/17 10:00 02/15/17 10:01 Norvasc - PO 10 mg DAILY SAAD Administration Chlordiazepoxide HCl 25 mg 02/14/17 10:17 Librium - PO 02/17/17 10:16 Q4H PRN WITHDRAWAL(CONT SUBST) Chlordiazepoxide HCl 25 mg 02/15/17 11:00 02/15/17 11:03 Librium - PO 02/16/17 05:01 25 mg [id number] SAAD Administration Chlordiazepoxide HCl 15 mg 02/16/17 11:00 Librium - PO 02/17/17 05:01 [id number] SAAD Duloxetine HCl 60 mg 02/14/17 10:00 02/15/17 10:01 Cymbalta - PO 60 mg DAILY SAAD Administration Enoxaparin Sodium 40 mg 02/14/17 15:30 02/15/17 10:01 Lovenox - SQ 40 mg DAILY SAAD Administration Escitalopram Oxalate 10 mg 02/15/17 10:00 02/15/17 10:01 Lexapro - PO 10 mg DAILY SAAD Administration Folic Acid 1 mg 02/14/17 15:00 02/15/17 10:01 Folic Acid - PO 1 mg DAILY SAAD Administration Potassium Chloride/Dextrose/Sod Cl 1,000 mls @ 75 mls/hr 02/14/17 15:15 15:00 D5-1/2ns+20 Meq Kcl - IV 75 mls/hr ASDIR SAAD Administration Metoprolol Succinate 25 mg 02/14/17 15:15 02/15/17 10:01 Toprol Xl - PO 25 mg DAILY SAAD Administration Multivitamins/Minerals/Vitamin C 1 tab 02/14/17 15:00 02/15/17 10:01 Tab-A-Vit - PO 1 tab DAILY SAAD Administration ASSESSMENT/PLAN: A: 46 yo man with midsternal chest pain on arrival which is currently resolved. He currently has lower back warmth with nausea. Moist skin noted over entire back and is warm to touch. Likely ETOH withdrawal given CIWA score-14. P: 1. Chest pain - Troponin (-)x 3 - Sinus rhythm with rate 93 noted on cardiac monitoring. No ectopy present. - CTA of chest negative for PE - pending echo 2. Hypertension - b/p elevated, increase norvasc, will start toprol - b/p monitoring q4h 3. Syncope - Likely secondary due to hypovolemia, continous cardiac monitoring - Echo pending 4. ETOH abuse - Admits drinking daily (1 bottle of rum) for the past 2 weeks since passing of both parents. Quit ETOH 15 yrs prior. - CIWA score-14, will continue librium protocol with close monitoring of sedation, q4h neurochecks - Dr Marshall following 5. Depression - continue duloxetine and lexapro 6. Lactic acidosis - Resolved, secondary to hypovolemia, doubt infectious origin - F/u urine culture - Blood cx without growth x 24 hours 7. PPX - lovenox - protonix - oob - scd 8. FEN - d51/2 NS @ 75ml/hr - low sodium diet Dispo: requires inpatient admission for acute medical condition. Code Status: FULL CODE Visit type - Emergency Visit Emergency Visit: Yes ED Registration Date: 02/13/17 Care time: The patient presented to the Emergency Department on the above date and was hospitalized for further evaluation of their emergent condition. - New Patient This patient is new to me today: Yes Date on this admission: 02/15/17 - Critical Care Critical Care patient: No
[2017-02-15] MEDS: ACETAMINOPHEN 325 MG TABLET (FP) PO PRN (12:48)
[2017-02-15] MEDS: D5-1/2NS+20 MEQ KCL - 1,000 ML IV SCH (16:01)
[2017-02-16] MEDS: chlordiazePOXIDE HCL 25 MG CAPSULE PO SCH (05:07)
[2017-02-16 08:55] LABS: BASOPHIL 1.2 % (0-2.0); EOSINOPHIL 3.6 % (0-4.5); MCH 27.9 pg (25.7-33.7); MCHC 33.6 g/dl (32.0-35.9); MEAN PLT VOLUME 10.7 fl (7.5-11.1); PLATELET COUNT 177 K/MM3 (134-434); RDW 13.7 % (11.9-15.9); WHITE BLOOD COUNT 6.3 K/mm3 (4.0-10.8)
[2017-02-16 08:57] LABS: ANION GAP 7 (8-16); CALCIUM 8.8 mg/dl (8.4-10.2); CO2 26 mmol/L (22-28); CREATININE 0.6 mg/dl (0.6-1.3); GLUCOSE,RANDOM 104 mg/dl (74-106)
[2017-02-16] MEDS: MULTIVITAMINS (DAILY MVI) TABLET (FP) PO SCH (09:38)
[2017-02-16] MEDS: amLODIPine BESYLATE 10 MG TABLET (FP) PO SCH (09:38)
[2017-02-16] MEDS: ESCITALOPRAM OXALATE 10 MG TABLET (FP) PO SCH (09:38)
[2017-02-16] MEDS: FOLIC ACID 1 MG TABLET (FP) PO SCH (09:38)
[2017-02-16] MEDS: METOPROLOL SUCCINATE 25 MG TAB.SR.24H (FP) PO SCH (09:38)
[2017-02-16] MEDS: DULoxetine HCL 30 MG CAPSULE.DR (FP) PO SCH (09:39)
[2017-02-16] MEDS: ENOXAPARIN NA (PORCINE) 40 MG/0.4 ML DISP.SYRIN SQ SCH (09:39)
--- NOTE | 2017-02-16 09:43 | PN ---
Physical Exam: SUBJECTIVE: Patient seen and examined at bedside. Pt OOB to shower. No acute changes overnight. OBJECTIVE: Vital Signs Period Temp Pulse Resp BP Sys/[place] Pulse Ox Last 24 Hr 98.0 F-99.4 F 92-107 17-18 126-153/65-88 98-100 GENERAL: The patient is awake, alert, and fully oriented, in no acute distress. HEAD: Normal with no signs of trauma. EYES: PERRL, extraocular movements intact, sclera anicteric, conjunctiva clear. No ptosis. ENT: Ears normal, nares patent, oropharynx clear without exudates, moist mucous membranes. NECK: Trachea midline, full range of motion, supple. LUNGS: Breath sounds equal, clear to auscultation bilaterally, no wheezes, no crackles, no accessory muscle use. HEART: Regular rate and rhythm, S1, S2 without murmur, rub or gallop. ABDOMEN: Soft, nontender, nondistended, normoactive bowel sounds, no guarding, no rebound, no hepatosplenomegaly, no masses. EXTREMITIES: 2+ pulses, warm, well-perfused, no edema. NEUROLOGICAL: Cranial nerves II through XII grossly intact. Normal speech, gait not observed. PSYCH: Normal mood, normal affect. SKIN: Warm, dry, normal turgor, no rashes or lesions noted Laboratory Results - last 24 hr 3 02/15/17 02/16/17 02/16/17 07:40 06:20 06:20 WBC 6.3 D RBC 5.23 Hgb 14.6 Hct 43.4 MCV 83.0 MCHC 33.6 RDW 13.7 Plt Count 177 MPV 10.7 Neutrophils % 68.0 Lymphocytes % 20.2 Monocytes % 7.0 Eosinophils % 3.6 Basophils % 1.2 Sodium 136 Potassium 3.8 Chloride 103 Carbon Dioxide 26 Anion Gap 7 L BUN 14 D Creatinine 0.6 Random Glucose 104 D Lactic Acid 1.6 Calcium 8.8 Magnesium 2.0 Active Medications 3 Generic Name Dose Route Start Last Admin Trade Name Freq PRN Reason Stop Dose Admin Acetaminophen 650 mg 02/14/17 15:07 02/15/17 12:48 Tylenol - PO 650 mg Q4H PRN Administration FEVER OR PAIN Amlodipine Besylate 10 mg 02/14/17 10:00 02/16/17 09:38 Norvasc - PO 10 mg DAILY SAAD Administration Chlordiazepoxide HCl 25 mg 02/14/17 10:17 02/15/17 12:47 Librium - PO 02/17/17 10:16 25 mg Q4H PRN Administration WITHDRAWAL(CONT SUBST) Chlordiazepoxide HCl 15 mg 02/16/17 11:00 Librium - PO 02/17/17 05:01 [id number] SAAD Duloxetine HCl 60 mg 02/14/17 10:00 02/16/17 09:39 Cymbalta - PO 60 mg DAILY SAAD Administration Enoxaparin Sodium 40 mg 02/14/17 15:30 02/16/17 09:39 Lovenox - SQ 40 mg DAILY SAAD Administration Escitalopram Oxalate 10 mg 02/15/17 10:00 02/16/17 09:38 Lexapro - PO 10 mg DAILY SAAD Administration Folic Acid 1 mg 02/14/17 15:00 02/16/17 09:38 Folic Acid - PO 1 mg DAILY SAAD Administration Potassium Chloride/Dextrose/Sod Cl 1,000 mls @ 75 mls/hr 02/14/17 15:15 16:01 D5-1/2ns+20 Meq Kcl - IV 75 mls/hr ASDIR SAAD Administration Metoprolol Succinate 25 mg 02/14/17 15:15 02/16/17 09:38 Toprol Xl - PO 25 mg DAILY SAAD Administration Multivitamins/Minerals/Vitamin C 1 tab 02/14/17 15:00 02/16/17 09:38 Tab-A-Vit - PO 1 tab DAILY SAAD Administration ASSESSMENT/PLAN: A: 46 yo man with midsternal chest pain on arrival which is currently resolved. Mild headache- refusing tylenol. Pt ambulatory OOB and took shower. CIWA score -3. P: 1. Chest pain - Troponin (-)x 3 - Sinus rhythm with rate 95 noted on cardiac monitoring. No ectopy present. - CTA of chest negative for PE - pending echo 2. Hypertension - b/p elevated, increase norvasc, will start toprol - b/p monitoring q4h 3. Syncope - Likely secondary due to hypovolemia, continous cardiac monitoring - Echo pending 4. ETOH abuse - Admits drinking daily (1 bottle of rum) for the past 2 weeks since passing of both parents. Quit ETOH 15 yrs prior. - CIWA score-3, will continue librium protocol with close monitoring of sedation , q4h neurochecks - Dr Marshall following 5. Depression - continue duloxetine and lexapro 6. Lactic acidosis - Resolved, secondary to hypovolemia, doubt infectious origin - F/u urine culture - Blood cx without growth x 24 hours 7. PPX - lovenox - protonix - oob - scd 8. FEN - encourage PO fluids - low sodium diet Dispo: requires inpatient admission for acute medical condition. Code Status: FULL CODE Visit type - Emergency Visit Emergency Visit: Yes ED Registration Date: 02/14/17 Care time: The patient presented to the Emergency Department on the above date and was hospitalized for further evaluation of their emergent condition. - New Patient This patient is new to me today: No - Critical Care Critical Care patient: No
[2017-02-16] MEDS: chlordiazePOXIDE 5 MG CAPSULE PO SCH ×3 (10:54→22:26)
[2017-02-16] MEDS: D5-1/2NS+20 MEQ KCL - 1,000 ML IV SCH (16:04)
[2017-02-17] MEDS: chlordiazePOXIDE 5 MG CAPSULE PO SCH (05:51)
[2017-02-17 06:30] VITALS: BP 144/83; PULSE 93; TEMP 98.5
[2017-02-17 08:21] LABS: BASOPHIL 0.3 % (0-2.0); EOSINOPHIL 3.8 % (0-4.5); MCH 27.7 pg (25.7-33.7); MCHC 33.6 g/dl (32.0-35.9); MEAN CELL VOLUME 82.5 fl (80-96); MEAN PLT VOLUME 10.6 fl (7.5-11.1); NEUTROPHILS 68.2 % (42.8-82.8); PLATELET COUNT 183 K/MM3 (134-434); RDW 13.9 % (11.9-15.9)
[2017-02-17 09:05] LABS: ANION GAP 8 (8-16); CALCIUM 9.3 mg/dl (8.4-10.2); CO2 27 mmol/L (22-28); CREATININE 0.7 mg/dl (0.6-1.3); GLUCOSE,RANDOM 110 mg/dl (74-106)
[2017-02-17] MEDS: ENOXAPARIN NA (PORCINE) 40 MG/0.4 ML DISP.SYRIN SQ SCH (09:19)
[2017-02-17] MEDS: DULoxetine HCL 30 MG CAPSULE.DR (FP) PO SCH (09:19)
[2017-02-17] MEDS: METOPROLOL SUCCINATE 25 MG TAB.SR.24H (FP) PO SCH (09:19)
[2017-02-17] MEDS: MULTIVITAMINS (DAILY MVI) TABLET (FP) PO SCH (09:19)
[2017-02-17] MEDS: ESCITALOPRAM OXALATE 10 MG TABLET (FP) PO SCH (09:19)
[2017-02-17] MEDS: amLODIPine BESYLATE 10 MG TABLET (FP) PO SCH (09:19)
[2017-02-17] MEDS: FOLIC ACID 1 MG TABLET (FP) PO SCH (09:19)
--- NOTE | 2017-02-17 09:47 | DS ---
Physical Exam: SUBJECTIVE: Patient seen and examined OBJECTIVE: Vital Signs Period Temp Pulse Resp BP Sys/[place] Pulse Ox Last 24 Hr 98.5 F-99.2 F 93-105 18-19 115-144/63-83 97-98 PHYSICAL EXAM GENERAL: The patient is awake, alert, and fully oriented, in no acute distress. HEAD: Normal with no signs of trauma. EYES: PERRL, extraocular movements intact, sclera anicteric, conjunctiva clear. ENT: Ears normal, nares patent, oropharynx clear without exudates, moist mucous membranes. NECK: Trachea midline, full range of motion, supple. LUNGS: Breath sounds equal, clear to auscultation bilaterally, no wheezes, no crackles, no accessory muscle use. HEART: Regular rate and rhythm, S1, S2 without murmur, rub or gallop. ABDOMEN: Soft, nontender, nondistended, normoactive bowel sounds, no guarding, no rebound, no hepatosplenomegaly, no masses. EXTREMITIES: 2+ pulses, warm, well-perfused, no edema. NEUROLOGICAL: Cranial nerves II through XII grossly intact. Normal speech, gait not observed. PSYCH: Normal mood, normal affect. SKIN: Warm, dry, normal turgor, no rashes or lesions noted. LABS Laboratory Results - last 24 hr 02/17/17 02/17/17 07:27 07:27 WBC 7.0 RBC 5.47 Hgb 15.2 Hct 45.1 MCV 82.5 MCHC 33.6 RDW 13.9 Plt Count 183 MPV 10.6 Neutrophils % 68.2 Lymphocytes % 19.9 Monocytes % 7.8 Eosinophils % 3.8 Basophils % 0.3 Sodium 137 Potassium 3.9 Chloride 102 Carbon Dioxide 27 Anion Gap 8 BUN 15 Creatinine 0.7 Random Glucose 110 H Calcium 9.3 Magnesium 2.0 HOSPITAL COURSE: Date of Admission:02/13/17 Date of Discharge: 02/17/17 Minutes to complete discharge: 45 Discharge Summary Reason For Visit: ALTERED MENTAL STATUS,SYNCOPE,CHEST PAIN Current Active Problems Alcohol dependence with uncomplicated withdrawal (Acute) Altered mental status (Acute) Chest pain (Acute) Syncope (Acute) Condition: Stable - Instructions - Home Medications Comprehensive Discharge Medication List: Ambulatory Orders Amlodipine Besylate 5 mg PO DAILY 02/13/17 Cetirizine HCl [Zyrtec -] 10 mg PO DAILY 02/13/17 Duloxetine HCl 60 mg PO ASDIR 02/13/17 Escitalopram Oxalate [Lexapro -] 10 mg PO DAILY 02/13/17 - Discharge Referral Referred to [facility] Med P.C[facility] No
== END 2017-02-17 10:38 | disposition home or self-care (01) | DRG 312 ==
LOC: FER 09:00 → OBSVTOIN 13:51 → INTOOBSV 13:51 → UNDOADMOB 13:51 → FM/S 13:51 → OBSVTOIN 02-14 15:00 → UNDODISIN 02-17 10:38
PROVIDERS: ADMIT Internal Medicine; ATTEND Nurse Practitioner Family
PROC: HZ2ZZZZ Detoxification Services for Substance Abuse Treatment (ICD-10-PCS; principal; 2017-02-14)
DX: R55 Syncope and collapse (principal); E87.2 Acidosis; F10.230 Alcohol dependence with withdrawal, uncomplicated; R07.9 Chest pain, unspecified; F32.9 Major depressive disorder, single episode, unspecified; R41.82 Altered mental status, unspecified
CPT/HCPCS: 36415; 70450-TC; 71010-TC; 71275-TC; 74177-TC; 80048; 80053; 80307; 81003; 81015; 82550; 82553; 83036; 83605; 83735; 84100; 84484; 85025; 85379; 87040; 87086; 87186; 93005; 93306-TC; 99285-25

== ENCOUNTER 2017-02-25 15:45 | Emergency (ER) | payer BC ==
[2017-02-25] MEDS ORDERED: LORAZEPAM CARPU-JECT 2 MG/ML DISP.SYRIN IVPUSH ONE (15:52)
[2017-02-25] MEDS ORDERED: HALOPERIDOL LACTATE 5 MG/ML IM ONE (15:52)
[2017-02-25] MEDS ORDERED: FOLIC ACID INJECTION - 1 MG, THIAMINE HCL 100 MG, MULTIVIT INJECTION ADULT 10 ML in SOD... IVPB ONE (15:53)
[2017-02-25 16:08] VITALS: BMI 33.3
[2017-02-25] MEDS ORDERED: HALOPERIDOL LACTATE 5 MG/ML ONE (16:09)
[2017-02-25] MEDS ORDERED: LORAZEPAM CARPU-JECT 2 MG/ML DISP.SYRIN ONE (16:09)
[2017-02-25 16:28] LABS: ACTIVATED PTT 28.3 SECONDS (24.0-38.9)
[2017-02-25 16:33] LABS: INR 1.02 (0.82-1.09); PROTHROMBIN TIME (PATIENT) 11.4 SEC (10.2-13.0)
[2017-02-25 16:35] LABS: BASOPHIL 1.7 % (0-2.0); MCH 27.9 pg (25.7-33.7); MCHC 33.5 g/dl (32.0-35.9); MEAN CELL VOLUME 83.4 fl (80-96); NEUTROPHILS 45.9 % (42.8-82.8); PLATELET COUNT 204 K/MM3 (134-434); RDW 14.2 % (11.9-15.9)
[2017-02-25] MEDS ORDERED: THIAMINE HCL 200 MG/2 ML VIAL ONE (16:46)
[2017-02-25] MEDS ORDERED: MULTIVIT INJ. ADULT COMBO WITH VIT K 1 COMBO 10 ML VIAL IV ONE (16:47)
[2017-02-25] MEDS ORDERED: FOLIC ACID 5 MG/1 ML ONE (16:48)
[2017-02-25 16:49] LABS: CPK(DFH) 533 IU/L (38-174)
[2017-02-25 16:50] LABS: ALK PHOS 92 U/L (32-92); ANION GAP 12 (8-16); CALCIUM 8.7 mg/dl (8.4-10.2); CO2 25 mmol/L (22-28); CREATININE 0.9 mg/dl (0.6-1.3); GLUCOSE,RANDOM 175 mg/dl (74-106); SGOT/AST 29 U/L (10-42); SGPT/ALT 38 U/L (10-40); TOT PROT 6.9 g/dl (6.4-8.3)
[2017-02-25] MEDS ORDERED: SODIUM CHLORIDE 1,000 ML IV STA (16:58)
--- NOTE | 2017-02-25 16:58 | PDOC ---
History of Present Illness - History of Present Illness Initial Comments: 02/25/17 17:03 Patient is a 46 year old male with significant medical hx of HTN, and psychiatric disease who presented to the ED initially with chest pain and then collapsed in a chair in the lobby. Today the patient ambulated into the hospital , complaining of chest pain, and collapsed into a chair in the lobby. 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 The patient did note that he was feeling weak upon interview. Otherwise, the patient is a poor historian. The patient was seen in the ED on 02/13 for chest pain, syncope and AMS. The patient came to the ED that day with initial complaint of chest pain and syncopized in the lobby. He was admitted from 02/13-02/17 and found to have hypovolemia, negative troponin, and recent ETOH abuse. Patient had admitted to drinking daily for the past two weeks since the passing of his parents. <Berta Ryan - Last Filed: 02/25/17 17:02> - General History Source: Patient Exam Limitations: No Limitations <Dennis Box - Last Filed: 03/01/17 17:17> - General Chief Complaint: Chest Pain Stated Complaint: CHEST PAIN Time Seen by Provider: 02/25/17 15:49 Past History <Berta Ryan - Last Filed: 02/25/17 17:02> - Past Medical History HTN: Yes - Psycho/Social/Smoking Cessation Hx Anxiety: No Suicidal Ideation: No Smoking History: Unknown if ever smoked Hx Alcohol Use: Yes (ALCOHOL ON BREATH) Drug/Substance Use Hx: No Substance Use Type: Alcohol <Dennis Box - Last Filed: 03/01/17 17:17> - Past Medical History Allergies/Adverse Reactions: Allergies Allergy/AdvReac Type Severity Reaction Status Date / Time No Known Allergies Allergy Verified 02/13/17 09:24 Home Medications: Ambulatory Orders Cetirizine HCl [Zyrtec -] 10 mg PO DAILY 02/13/17 Duloxetine HCl 60 mg PO ASDIR 02/13/17 Escitalopram Oxalate [Lexapro -] 10 mg PO DAILY 02/13/17 Acetaminophen [Tylenol .Regular Strength -] 650 mg PO Q4H PRN #0 tablet Amlodipine Besylate [Norvasc -] 10 mg PO DAILY #30 tablet 02/17/17 Folic Acid - 1 mg PO DAILY tablet 02/17/17 Metoprolol Succinate [Toprol XL -] 25 mg PO DAILY #30 tab 02/17/17 Multivitamins [Multivit ([facility] Formulary)] 1 tab PO DAILY tab 02/17/17 Review of Systems - Review of Systems Comments:: 02/25/17 17:20 GENERAL/CONSTITUTIONAL: Weakness. No fever or chills. HEAD, EYES, EARS, NOSE AND THROAT: No change in vision. No ear pain or discharge. No sore throat. CARDIOVASCULAR: Chest pain. No shortness of breath. RESPIRATORY: No cough, wheezing, or hemoptysis. GASTROINTESTINAL: No nausea, vomiting, diarrhea or constipation. GENITOURINARY: No dysuria, frequency, or change in urination. MUSCULOSKELETAL: No joint or muscle swelling or pain. No neck or back pain. ENDOCRINE: No increased thirst. No abnormal weight change. SKIN: No rash NEUROLOGIC: No headache, vertigo, loss of consciousness, or change in strength/ sensation. <Berta Ryan - Last Filed: 02/25/17 17:02> *Physical Exam - Vital Signs Last Vital Signs Temp Pulse Resp BP Pulse Ox 114 H 20 125/78 100 02/25/17 15:47 02/25/17 15:47 02/25/17 16:59 02/25/17 15:47 - Physical Exam Comments: 02/25/17 17:21 GENERAL: Awake, intoxicated, alcohol on breath, urinated on himself HEAD: No signs of trauma EYES: PERRLA, EOMI, sclera anicteric, conjunctiva clear ENT: Auricles normal inspection, hearing grossly normal, nares patent, oropharynx clear without exudates. Moist mucosa NECK: Normal ROM, supple, no lymphadenopathy, JVD, or masses LUNGS: Breath sounds equal, clear to auscultation bilaterally. No wheezes, and no crackles HEART: Regular rate and rhythm, normal S1 and S2, no murmurs, rubs or gallops ABDOMEN: Soft, nontender, normoactive bowel sounds. No guarding, no rebound. No masses EXTREMITIES: Normal range of motion, no edema. No clubbing or cyanosis. No cords, erythema, or tenderness NEUROLOGICAL: Cranial nerves II through XII grossly intact. Normal speech, normal gait SKIN: Warm, Dry, normal turgor, no rashes or lesions noted. HEMATOLOGIC/LYMPHATIC: No anemia, easy bleeding, or history of blood clots. ALLERGIC/IMMUNOLOGIC: No hives or skin allergy. <Berta Ryan - Last Filed: 02/25/17 17:02> - Vital Signs Last Vital Signs Temp Pulse Resp BP Pulse Ox 114 H 20 144/81 100 02/25/17 15:47 02/25/17 15:47 02/25/17 15:47 02/25/17 15:47 <Dennis Box - Last Filed: 03/01/17 17:17> Heart Score/ECG Review #1 02/25/17 17:23 Sinus tachycardia at 113 bpm Otherwise normal ECG <Berta Ryan - Last Filed: 02/25/17 17:02> - History History: Slightly suspicious - Age Age: 45-65 #1 ECG reviewed & interpreted by me at: 15:10 02/25/17 16:59 NSR 113, no std/madhu, normal axis, normal intervals, QTC 438 msec <Dennis Box - Last Filed: 03/01/17 17:17> ED Treatment Course - LABORATORY CBC & Chemistry Diagram: 02/25/17 15:35 02/25/17 15:55 - ADDITIONAL ORDERS Additional order review: Laboratory Results 02/25/17 02/25/17 02/25/17 15:55 15:55 15:55 INR 1.02 PTT (Actin FS) 28.3 Creatine Kinase Cancelled Troponin I Cancelled Alcohol, Quantitative 306.1 H* 02/25/17 15:35 RBC 4.61 MCV 83.4 MCHC 33.5 RDW 14.2 MPV 10.0 Neutrophils % 45.9 D Lymphocytes % 42.4 H D Monocytes % 7.0 Eosinophils % 3.0 Basophils % 1.7 D - RADIOLOGY Radiograph Interpretation: 02/25/17 17:22 Chest X-Ray Impression: No significant interval change or acute lung disease is present. Reported By: Stanton Segura MD - Medications Given in the ED: ED Medications Discontinued Medications Generic Name Dose Route Start Last Admin Trade Name Freq PRN Reason Stop Dose Admin Haloperidol 5 mg 02/25/17 15:52 02/25/17 16:14 Haldol Injection (Fast Acting) - IM 02/25/17 15:53 5 mg ONCE ONE Administration Lorazepam 2 mg 02/25/17 15:52 02/25/17 16:14 Ativan Injection - IVPUSH 02/25/17 15:53 2 mg ONCE ONE Administration <ConnorBerta - Last Filed: 02/25/17 17:02> - LABORATORY CBC & Chemistry Diagram: 02/25/17 15:35 02/25/17 15:55 - RADIOLOGY Radiology Studies Ordered: Category Date Time Status CHEST X-RAY PORTABLE* [RAD] Stat Radiology 02/25/17 15:50 Taken - Medications Given in the ED: ED Medications Discontinued Medications Generic Name Dose Route Start Last Admin Trade Name Freq PRN Reason Stop Dose Admin Haloperidol 5 mg 02/25/17 15:52 02/25/17 16:14 Haldol Injection (Fast Acting) - IM 02/25/17 15:53 5 mg ONCE ONE Administration Lorazepam 2 mg 02/25/17 15:52 02/25/17 16:14 Ativan Injection - IVPUSH 02/25/17 15:53 2 mg ONCE ONE Administration <Dennis Box - Last Filed: 03/01/17 17:17> Medical Decision Making - Medical Decision Making 02/25/17 16:59 A portion of this note was documented by scribe services under my direction. I have reviewed the details of the note, within reason, and agree with the documentation with the following case summary and management plan written by me. Patient treated in the ED. Nursing notes are reviewed and incorporated into the medical decision-making. Vital signs reviewed. Peripheral IV access obtained by the nurse, laboratory studies are drawn and sent, reviewed and interpreted by myself. Vital Signs Temp Pulse Resp BP Pulse Ox 114 H 20 144/81 100 02/25/17 15:47 02/25/17 15:47 02/25/17 15:47 02/25/17 15:47 46-year-old male with history of alcohol use and psychiatric illness presents with similar presentation to his prior ED visit last week. Patient ambulated into the ED and then sat down in the chair and subsequently "collapsed". Patient stated that he had chest pain though he would not elaborate on further information. We'll start saying things like "I'm in [place] ", "I have family members ". The patient had alcohol on his breath and appears quite intoxicated. The patient was brought immediately to the ED and assessed by me. Patient was uncooperative in trying to get up and move around. For patient safety, patient was given Haldol and Ativan. The patient had a recent visit for similar incidents where he had an echocardiogram and a CAT scan performed which demonstrated no acute findings. Patient was then placed on detoxification. I suspect today that the patient is likely having alcohol intoxication and less likely to be cardiac. Will however send a troponin and a chest x-ray. Alcohol level is elevated above 300. We will allow the patient to sober and to reassess. Case signed out to Dr. Mejia for further management. <Dennis Box - Last Filed: 03/01/17 17:17> *DC/Admit/Observation/Transfer <Berta Ryan - Last Filed: 02/25/17 17:02> <Dennis Box - Last Filed: 03/01/17 17:17> Diagnosis at time of Disposition: Alcohol intoxication, Alcohol abuse - Discharge Dispostion Disposition: HOME Condition at time of disposition: Guarded - Patient Instructions Additional Instructions: Get help to some drinking. Return to the emergency department immediately with ANY new, persistent or worsening symptoms. Continue any medications as previously prescribed by your physician. You should follow up with your primary doctor as soon as possible regarding today's emergency department visit. . Please make sure your doctor reviews the results of your emergency evaluation. Thank you for coming to the Emergency Department today for your care. It was a pleasure to see you today. Please note that your evaluation is INCOMPLETE until you follow-up with your doctor.
[2017-02-25 17:01] LABS: ALCOHOL 306.1 mg/dl (0-5)
[2017-02-25 17:08] LABS: TROPONIN I (DFP) < 0.03 ng/ml (0.03-0.50)
[2017-02-25 17:17] LABS: CK MB 5.4 ng/ml (0.3-4.0)
--- NOTE | 2017-02-25 17:34 | PDOC ---
*Physical Exam - Vital Signs Last Vital Signs Temp Pulse Resp BP Pulse Ox 114 H 20 125/78 100 02/25/17 15:47 02/25/17 15:47 02/25/17 16:59 02/25/17 15:47 ED Treatment Course - LABORATORY CBC & Chemistry Diagram: 02/25/17 15:35 02/25/17 15:55 - ADDITIONAL ORDERS Additional order review: Laboratory Results 02/25/17 02/25/17 02/25/17 15:55 15:55 15:55 INR 1.02 PTT (Actin FS) 28.3 Sodium 145 Potassium 3.8 Chloride 108 H Carbon Dioxide 25 Anion Gap 12 BUN 11 D Creatinine 0.9 D Creat Clearance w eGFR > 60 Random Glucose 175 H D Calcium 8.7 AST 29 D ALT 38 Alkaline Phosphatase 92 D Creatine Kinase Cancelled CK-MB (CK-2) 5.4 H CK-MB (CK-2) Rel Index Troponin I Cancelled Total Protein 6.9 Albumin 4.0 Alcohol, Quantitative 306.1 H* 02/25/17 15:30 INR PTT (Actin FS) Sodium Potassium Chloride Carbon Dioxide Anion Gap BUN Creatinine Creat Clearance w eGFR Random Glucose Calcium AST ALT Alkaline Phosphatase Creatine Kinase 533 H D CK-MB (CK-2) CK-MB (CK-2) Rel Index 1.0 Troponin I < 0.03 L Total Protein Albumin Alcohol, Quantitative 02/25/17 15:35 RBC 4.61 MCV 83.4 MCHC 33.5 RDW 14.2 MPV 10.0 Neutrophils % 45.9 D Lymphocytes % 42.4 H D Monocytes % 7.0 Eosinophils % 3.0 Basophils % 1.7 D - Medications Given in the ED: ED Medications Discontinued Medications Generic Name Dose Route Start Last Admin Trade Name Freq PRN Reason Stop Dose Admin Haloperidol 5 mg 02/25/17 15:52 02/25/17 16:14 Haldol Injection (Fast Acting) - IM 02/25/17 15:53 5 mg ONCE ONE Administration Lorazepam 2 mg 02/25/17 15:52 02/25/17 16:14 Ativan Injection - IVPUSH 02/25/17 15:53 2 mg ONCE ONE Administration Progress Note - Progress Note Progress Note: This is a 46-year-old male who is a chronic alcoholic and this is the second time he has come to this emergency room and collapsed out in the waiting room. The first time he did this he had an extensive workup including cardiac and neurological workup and no acute cause was found for his symptoms. Patient returns again today and collapses out in the waiting room. His alcohol is noted to be 300. Patient is receiving some fluids, banana bag and is getting a basic workup. *DC/Admit/Observation/Transfer Diagnosis at time of Disposition: Alcohol abuse Alcoholic intoxication Qualifiers: Complication of substance-induced condition: uncomplicated Qualified Code(s): F10.920 - Alcohol use, unspecified with intoxication, uncomplicated - Discharge Dispostion Disposition: HOME Condition at time of disposition: Guarded Admit: No - Patient Instructions Additional Instructions: Get help to some drinking. Return to the emergency department immediately with ANY new, persistent or worsening symptoms. Continue any medications as previously prescribed by your physician. You should follow up with your primary doctor as soon as possible regarding today's emergency department visit. . Please make sure your doctor reviews the results of your emergency evaluation. Thank you for coming to the Emergency Department today for your care. It was a pleasure to see you today. Please note that your evaluation is INCOMPLETE until you follow-up with your doctor.
[2017-02-25 18:07] LABS: BILIRUBIN,TOTAL < 0.3 mg/dl (0.2-1.0)
[2017-02-25 20:12] VITALS: BP 111/64; PULSE 96
--- NOTE | 2017-02-26 08:30 | EKG ---
Test Reason : Blood Pressure : / mmHG Vent. Rate : 113 BPM Atrial Rate : 113 BPM P-R Int : 142 ms QRS Dur : 092 ms QT Int : 320 ms P-R-T Axes : 062 010 045 degrees QTc Int : 438 ms SINUS TACHYCARDIA OTHERWISE NORMAL ECG WHEN COMPARED WITH ECG OF 13-FEB-2017 08:56, NO SIGNIFICANT CHANGE WAS FOUND Confirmed by WALI GRANDA MD ([id number]) on 02/26/2017 8:29:23 AM Referred By: DR LEONARD Confirmed By:WALI GRANDA MD
[2017-03-09 13:53] LABS: CK MB 5.4 ng/ml (0.3-4.0)
== END 2017-02-25 21:51 | disposition home or self-care (01) ==
LOC: FER 15:45
PROC: 3E033NZ Introduction of Analgesics, Hypnotics, Sedatives into Peripheral Vein, Percutaneous Approach (ICD-10-PCS; principal; 2017-02-25)
PROC: 3E033GC Introduction of Other Therapeutic Substance into Peripheral Vein, Percutaneous Approach (ICD-10-PCS; 2017-02-25)
PROC: 3E023GC Introduction of Other Therapeutic Substance into Muscle, Percutaneous Approach (ICD-10-PCS; 2017-02-25)
DX: F10.920 Alcohol use, unspecified with intoxication, uncomplicated (principal)
CPT/HCPCS: 36415; 71010-TC; 80053; 80307; 82550; 82553; 84484; 85025; 85610; 85730; 93005; 93010; 99285-25

== ENCOUNTER 2017-05-13 10:06 | Emergency (ER) | payer BC ==
[2017-05-13 10:33] VITALS: PULSE 106; TEMP 98.2; BMI 24.7
[2017-05-13] MEDS ORDERED: SODIUM CHLORIDE 1,000 ML IV STA (10:46)
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
--- NOTE | 2017-05-13 11:52 | PDOC ---
Attending Attestation - Resident Resident Name: Roman Skyson - ED Attending Attestation I have performed the following: I have examined & evaluated the patient, The case was reviewed & discussed with the resident, I agree w/resident's findings & plan, Exceptions are as noted - HPI HPI: 05/13/17 11:48 46-year-old male brought in by EMS with alcohol intoxication and complained to them chest pain. No trauma, increased alcohol intake secondary to social stressors, denies any complaints at this time though still intoxicated. - Physicial Exam PE: 05/13/17 11:49 Vital signs stable, heart rate 102. Exam atraumatic Smells of alcohol cardiopulmonary exam is normal Neurological exam is nonfocal - Medical Decision Making 05/13/17 11:49 Patient seen and evaluated with the resident. I agree with the overall evaluation, assessment, and management with the following summary of visit: 46-year-old male with alcohol intoxication brought in by EMS, vague complaint of chest pain to EMS but denies any chest pain now. Atraumatic, neurologically intact. Check labs, urinalysis, EKG Chest x-ray IV fluid hydration Reassess when more sober. No clinical indication for other emergent imaging. 05/13/17 15:40 CXR PA/lateral clear, trop negative. Clinically more sober, feels anxious, admits to excessive etoh. Discussed detox and agrees. Discussed with [facility] and signout given. Medically clear for detox, will discharge and proceed to [facility]. Heart Score/ECG Review #1 ECG reviewed & interpreted by me at: 13:57 General ECG Interpretation: Sinus Rhythm, Normal Rate (105), Normal Intervals ( qtc 454), No acute ischemic changes
[2017-05-13 11:59] LABS: BASOPHIL 0.6 % (0-2.0); EOSINOPHIL 0.2 % (0-4.5); MCH 27.8 pg (25.7-33.7); MCHC 32.6 g/dl (32.0-35.9); MEAN CELL VOLUME 85.3 fl (80-96); MEAN PLT VOLUME 9.4 fl (7.5-11.1); NEUTROPHILS 72.5 % (42.8-82.8); PLATELET COUNT 181 K/MM3 (134-434); RDW 15.4 % (11.9-15.9); WHITE BLOOD COUNT 6.6 K/mm3 (4.0-10.0)
[2017-05-13 12:26] LABS: ALBUMIN 4.3 g/dl (3.4-5.0); ANION GAP 12 (8-16); BILIRUBIN,TOTAL 0.2 mg/dL (0.2-1.0); CALCIUM 8.7 mg/dL (8.5-10.1); CO2 28 mmol/L (21-32); CREATININE 0.7 mg/dL (0.7-1.3); GLUCOSE,RANDOM 150 mg/dL (74-106); SGOT/AST 24 U/L (15-37); TOT PROT 7.5 g/dl (6.4-8.2)
[2017-05-13 12:32] LABS: ALK PHOS 95 U/L (45-117); CPK 391 IU/L (39-308); SGPT/ALT 48 U/L (12-78); TROPONIN I 0.03 ng/ml (0.00-0.05)
[2017-05-13] MEDS ORDERED: METOCLOPRAMIDE HCL INJECTION 10 MG/2 ML VIAL IVPUSH ONE (13:24)
[2017-05-13] MEDS ORDERED: diazePAM CARPU-JECT 10 MG/2 ML DISP.SYRIN IVPUSH ONE ×2 (13:24→16:15)
[2017-05-13] MEDS ORDERED: METOCLOPRAMIDE HCL INJECTION 10 MG/2 ML VIAL ONE (13:34)
[2017-05-13] MEDS ORDERED: diazePAM CARPU-JECT 10 MG/2 ML DISP.SYRIN ONE (13:34)
[2017-05-13] MEDS ORDERED: ONDANSETRON 4 MG/2 ML VIAL ONE (16:28)
[2017-05-13] MEDS ORDERED: ONDANSETRON 4 MG/2 ML VIAL IVPB ONE (16:28)
[2017-05-13 16:33] VITALS: BP 151/101
--- NOTE | 2017-05-13 17:13 | EKG ---
Test Reason : Blood Pressure : / mmHG Vent. Rate : 105 BPM Atrial Rate : 105 BPM P-R Int : 148 ms QRS Dur : 082 ms QT Int : 344 ms P-R-T Axes : 060 -01 033 degrees QTc Int : 454 ms SINUS TACHYCARDIA OTHERWISE NORMAL ECG WHEN COMPARED WITH ECG OF 25-FEB-2017 15:40, NO SIGNIFICANT CHANGE WAS FOUND CLINICAL CORRELATION IS RECOMMENDED Confirmed by MARLEN HAGEN MD ([id number]) on 05/13/2017 5:12:34 PM Referred By: Confirmed By:MARLEN HAGEN MD
== END 2017-05-13 16:33 | disposition home or self-care (01) ==
LOC: JER 10:06
PROC: 3E033NZ Introduction of Analgesics, Hypnotics, Sedatives into Peripheral Vein, Percutaneous Approach (ICD-10-PCS; principal; 2017-05-13)
PROC: 3E033GC Introduction of Other Therapeutic Substance into Peripheral Vein, Percutaneous Approach (ICD-10-PCS; 2017-05-13)
PROC: 3E0337Z Introduction of Electrolytic and Water Balance Substance into Peripheral Vein, Percutaneous Approach (ICD-10-PCS; 2017-05-13)
DX: F10.920 Alcohol use, unspecified with intoxication, uncomplicated (principal); I10 Essential (primary) hypertension; F43.10 Post-traumatic stress disorder, unspecified; F32.9 Major depressive disorder, single episode, unspecified
CPT/HCPCS: 36415; 71010-TC; 71020-TC; 80053; 82553; 83690; 84484; 85025; 93005; 93010; 99283-25

== ENCOUNTER 2017-05-13 19:19 | Emergency (ER) | payer BC ==
[2017-05-13] MEDS ORDERED: MAG HYDROX/AL HYDROX/SIMETH 30 ML UNIT-DOSE CUP ONE (19:34)
--- NOTE | 2017-05-13 19:36 | PDOC ---
History of Present Illness - General History Source: Patient Exam Limitations: No Limitations - History of Present Illness Initial Comments: 05/13/17 19:50 A portion of this note was documented by scribe services under my direction. I have reviewed the details of the note, within reason, and agree with the documentation. The case summary and management plan written by me. Assessment and plan: This is a 46-year-old male who has been evaluated at this [facility] several times. Patient has a history of heavy alcohol use and was at [facility] this morning where he was evaluated had a complete workup including cardiac enzymes and EKG. Patient was then sent to [facility] for detox and did not go. Patient denied drinking throughout the day and comes in now complaining of epigastric pain. Patient's repeat cardiogram was normal and he was given Maalox for his epigastric discomfort. Given the fact the patient had a complete workup within the last 12 hours I did not repeat anything and he was told that he needs to get help for his alcohol problem and go to detox at [facility]. Patient was discharged. <William Hodges I - Last Filed: 05/13/17 19:50> - History of Present Illness Initial Comments: 05/13/17 19:53 The patient is a 46 year old male, with a significant past medical history of alcohol abuse, who presents to the emergency department with epigastric pain radiating to his chest today. The patient has been evaluated in this ED numerous times for similar reasons. As per the patients medical record, the patient was seen this morning at [facility] and discharged to [facility] for detox after having a completely negative cardiac workup. The patient presents now for similar complaints and denies going to detox. The patient denies drinking today. He denies shortness of breath, headache and dizziness. He denies fever, chills, nausea, vomit, diarrhea and constipation. He denies dysuria, frequency, urgency and hematuria. PAST MEDICAL HISTORY: no significant history PAST SURGICAL HISTORY: no significant history FAMILY HISTORY: no pertinent history MEDICATIONS: reviewed ALLERGIES: As per nursing notes Adult ROS General: No fevers or chills, no weakness, no weight loss HEENT: No change in vision. No sore throat,. No ear pain CardioVascular: (+) mild chest pain. No shortness of breath Respiratory:No cough, or wheezing. Gastrointestinal: (+) epigastric pain. no nausea, vomiting, diarrhea or constipation, No rectal bleeding Genitourinary: No dysuria, hematuria, or frequency Musculoskeletal: No joint or muscle pain or swelling Neurologic: No headache, vertigo, dizziness or loss of consciousness Psychiatric: nor depression Skin: No rashes or easy bruising Endocrine: no increased thirst or abnormal weight change Allergic: no skin or latex allergy All other systems reviewed and normal Adult Exam: General: Well-nourished well-developed individual, no acute distress HEENT: Throat: Normal, tonsils normal, no erythema or exudate Neck: Supple, no meningeal signs, no lymphadenopathy Eyes::Pupils equal reactive and round, extraocular motion intact Chest: Nontender to palpation Cardiac: S1-S2 normal, regular rate and rhythm, no murmurs rubs or gallops Respiratory: Lungs clear to auscultation bilateral Abdomen: Soft, nondistended, normal bowel sounds, nontender to palpation diffusely Extremities: Warm, dry, no cyanosis, clubbing, or edema Skin: No rashes Neuro: Alert and oriented x3, nonfocal exam, grossly intact, normal gait Psych: Normal mood and affect <Bettina Bruner - Last Filed: 05/13/17 19:54> - General Chief Complaint: Pain, Acute Stated Complaint: UPPER ABDOMINAL PAIN/AOB Time Seen by Provider: 05/13/17 19:20 Past History - Past Medical History HTN: Yes Psychiatric Problems: Yes (depression ptsd) - Surgical History Cholecystectomy: Yes - Psycho/Social/Smoking Cessation Hx Anxiety: No Suicidal Ideation: No Smoking History: Never smoked Have you smoked in the past 12 months: No Information on smoking cessation initiated: No Hx Alcohol Use: Yes Drug/Substance Use Hx: No Substance Use Type: Alcohol <William Hodges I - Last Filed: 05/13/17 19:50> <Bettina Bruner - Last Filed: 05/13/17 19:54> - Past Medical History Allergies/Adverse Reactions: Allergies Allergy/AdvReac Type Severity Reaction Status Date / Time No Known Allergies Allergy Verified 05/13/17 19:21 Home Medications: Ambulatory Orders Cetirizine HCl [Zyrtec -] 10 mg PO DAILY 02/13/17 Duloxetine HCl 60 mg PO ASDIR 02/13/17 Escitalopram Oxalate [Lexapro -] 10 mg PO DAILY 02/13/17 Amlodipine Besylate [Norvasc -] 10 mg PO DAILY #30 tablet 02/17/17 Folic Acid - 1 mg PO DAILY tablet 02/17/17 *Physical Exam - Vital Signs Last Vital Signs Temp Pulse Resp BP Pulse Ox 99.5 F 111 H 20 173/114 99 05/13/17 19:28 05/13/17 19:28 05/13/17 19:28 05/13/17 19:28 05/13/17 19:28 <William Hodges I - Last Filed: 05/13/17 19:50> - Vital Signs Last Vital Signs Temp Pulse Resp BP Pulse Ox 99.5 F 111 H 20 173/114 99 05/13/17 19:28 05/13/17 19:28 05/13/17 19:28 05/13/17 19:28 05/13/17 19:28 <Bettina Bruner - Last Filed: 05/13/17 19:54> Heart Score/ECG Review - ECG Intrepretation Comment:: 05/13/17 19:38 ECG was read by Dr. Wright at 19:30 Impression: normal sinus rhythm <Bettina Bruner - Last Filed: 05/13/17 19:54> *DC/Admit/Observation/Transfer - Discharge Dispostion Admit: No <William Hodges I - Last Filed: 05/13/17 19:50> - Attestations Scribe Attestion: 05/13/17 19:54 Documentation prepared by Bettina Bruner, acting as medical records manager for William Hodges MD <Bettina Bruner - Last Filed: 05/13/17 19:54> Diagnosis at time of Disposition: Gastritis Qualifiers: Gastritis type: alcoholic Chronicity: chronic Gastritis bleeding: without bleeding Qualified Code(s): K29.20 - Alcoholic gastritis without bleeding - Discharge Dispostion Disposition: HOME Condition at time of disposition: Stable - Patient Instructions Additional Instructions: Your symptoms are secondary to your heavy alcohol use. It is very important that you stop drinking. Your at [facility] this morning and sent to detox but did not go. It is important that you go to detox and get help for your drinking problem.
[2017-05-13 19:39] VITALS: BP 173/114; PULSE 111; TEMP 99.5; BMI 30.7
[2017-05-13] MEDS ORDERED: MAG HYDROX/AL HYDROX/SIMETH 30 ML UNIT-DOSE CUP PO ONE (19:39)
--- NOTE | 2017-05-14 14:17 | EKG ---
Test Reason : Blood Pressure : / mmHG Vent. Rate : 094 BPM Atrial Rate : 094 BPM P-R Int : 150 ms QRS Dur : 086 ms QT Int : 342 ms P-R-T Axes : 058 -04 030 degrees QTc Int : 427 ms NORMAL SINUS RHYTHM WHEN COMPARED WITH ECG OF 13-MAY-2017 13:57, NO SIGNIFICANT CHANGE WAS FOUND Confirmed by MD CANO MARJORY ([id number]) on 05/14/2017 2:16:46 PM Referred By: DR MANZO Confirmed By:RC CANO MD
== END 2017-05-13 19:50 | disposition home or self-care (01) ==
LOC: FER 19:19
DX: K29.20 Alcoholic gastritis without bleeding (principal)
CPT/HCPCS: 93005; 93010; 99281-25

== ENCOUNTER 2017-08-05 11:58 | Inpatient (IN) | payer BC ==
--- NOTE | 2017-08-05 12:08 | PDOC ---
History of Present Illness - General Chief Complaint: Chest Pain Stated Complaint: CHEST PAIN Time Seen by Provider: 08/05/17 12:02 - History of Present Illness Initial Comments: 08/05/17 12:04 47-year-old male history of heavy alcohol abuse with several prior ED visits here today with complaint of epigastric pain and burning chest pain. Patient reports his last drink was 3 hours prior to arrival states he has had a few episodes of vomiting earlier today denies any fevers or chills no shortness of breath, no leg swelling patient has been evaluated in the past for similar complaints denies any fevers chills or cough Past History - Past Medical History Allergies/Adverse Reactions: Allergies Allergy/AdvReac Type Severity Reaction Status Date / Time acetylcysteine Allergy Hives Verified 08/05/17 17:19 [From Acetadote] Home Medications: Ambulatory Orders Cetirizine HCl [Zyrtec -] 10 mg PO DAILY 02/13/17 Duloxetine HCl 60 mg PO ASDIR 02/13/17 Escitalopram Oxalate [Lexapro -] 10 mg PO DAILY 02/13/17 Amlodipine Besylate [Norvasc -] 10 mg PO DAILY #30 tablet 02/17/17 Folic Acid - 1 mg PO DAILY tablet 02/17/17 HTN: Yes Psychiatric Problems: Yes (depression ptsd) - Surgical History Cholecystectomy: Yes - Suicide/Smoking/Psychosocial Hx Smoking History: Never smoked Have you smoked in the past 12 months: No Hx Alcohol Use: Yes Drug/Substance Use Hx: No Substance Use Type: Alcohol Review of Systems - Review of Systems Constitutional: No: Chills, Diaphoresis HEENTM: No: Blurred Vision Respiratory: No: Orthopnea, Shortness of Breath Cardiac (ROS): Yes: Chest Pain ABD/GI: Yes: Other (epigastric pain). No: Abdominal Distended : No: Burning, Dysuria Musculoskeletal: No: Back Pain Integumentary: No: Bruising Psychiatric: No: Depression All Other Systems: Reviewed and Negative *Physical Exam - Physical Exam General Appearance: No: Appropriately Dressed, Apparent Distress Neck: positive: Trachea midline Respiratory/Chest: positive: Lungs Clear, Normal Breath Sounds. negative: Respiratory Distress Cardiovascular: positive: Regular Rhythm, Regular Rate, S1, S2. negative: Edema Gastrointestinal/Abdominal: positive: Normal Bowel Sounds, Flat, Soft. negative : Tender Musculoskeletal: negative: CVA Tenderness Integumentary: positive: Normal Color, Dry, Warm, Rash Neurologic: positive: Alert, Normal Mood/Affect, Motor Strength 5/5 Heart Score/ECG Review #1 General ECG Interpretation: Sinus Rhythm, Normal Rate (115 sinus tachycardia), Normal Intervals, No acute ischemic changes ED Treatment Course - LABORATORY CBC & Chemistry Diagram: 08/05/17 12:25 08/05/17 12:25 Medical Decision Making - Medical Decision Making 08/05/17 12:07 39-year-old male history of hypertension and alcohol abuse here complaining of epigastric and burning chest pain. Differential includes gastritis, alcohol intoxication, ACS, pancreatitis, plan will send labs with one set of cardiac enzymes EKG and chest x-ray due to patient's history of vomiting patient require reassessment upon sobriety and likely outpatient workup we'll treat symptoms with Pepcid Maalox and reassess 08/05/17 15:13 pt with significantly elevated liver function tests, normal lipase. differential includes toxic alcohol ingestion, hypertriglyceridemia, overdose tylenol, acute hepatitis, plan hep panel, will d/w gi, recommend NAC protocol , tylenol level, coags, and lactate added given thiamine and folate. anddextrose for ketosis. will transfer to [facility] 08/05/17 15:30 NAC protocol given 21-hour regimen: Loading dose: 150 mg/kg (maximum: 15 g) infused over 1 hour Second dose: 50 mg/kg (maximum: 5 g) infused over 4 hours Third dose: 100 mg/kg (maximum: 10 g) infused over 16 hours 08/05/17 17:47 pt developed itching hives while NAC going. discontinued. given benadryl and solumedral. also given 2 ativan for etoh withdrawal. no wheezing. no tongue or lip swelling. 08/05/17 18:24 pt with allergic reaction to to NAC, discontinued after loading dose. give benadryl and solumedral. iv bolus given. pt itching andhives improved. no tongue or lip swelling. no hypotension. later pt becamse tachycardic and diaphoretic. given 2 ativan, for presumed etoh withdrawal. bolus given. chart reviewed, recent echo 02/2017 only diastolic dysfunction. no cardiomyopathy. ICU paged at [facility]. d/w dr. quintanilla, who accepted pt to ICU. recommend transfer pending ICU bed placement. 08/05/17 18:35 case d/w dr. Don, recommended holding NAC protocol for now with tracking of LFT. due to concerns for allergic reaction. *DC/Admit/Observation/Transfer Diagnosis at time of Disposition: Alcohol intoxication, Liver failure, Acidosis - Discharge Dispostion Condition at time of disposition: Stable Admit: Yes - Referrals - Patient Instructions Printed Discharge Instructions: Alcohol Use Disorder Additional Instructions: He should follow-up at [facility] for detox. Avoid heavy alcohol intake. Return for any problems or concerns, follow up with her primary care doctor - Post Discharge Activity
[2017-08-05] MEDS ORDERED: FAMOTIDINE 20 MG TABLET PO ONE (12:11)
[2017-08-05] MEDS ORDERED: MAG HYDROX/AL HYDROX/SIMETH 30 ML UNIT-DOSE CUP PO ONE (12:11)
[2017-08-05] MEDS ORDERED: FAMOTIDINE 20 MG TABLET ONE (12:38)
[2017-08-05] MEDS ORDERED: MAG HYDROX/AL HYDROX/SIMETH 30 ML UNIT-DOSE CUP ONE (12:38)
[2017-08-05 12:40] LABS: BASOPHIL 0.2 % (0-2.0); EOSINOPHIL 1.5 % (0-4.5); MCHC 33.1 g/dl (32.0-35.9); MEAN CELL VOLUME 84.8 fl (80-96); NEUTROPHILS 82.7 % (42.8-82.8); PLATELET COUNT 270 K/MM3 (134-434); RDW 13.5 % (11.9-15.9); WHITE BLOOD COUNT 7.3 K/mm3 (4.0-10.8)
[2017-08-05 13:08] LABS: ALBUMIN 4.4 g/dl (3.5-5.0); ALK PHOS 102 U/L (32-92); ANION GAP 18 (8-16); BILIRUBIN,TOTAL 1.1 mg/dl (0.2-1.0); CALCIUM 8.8 mg/dl (8.4-10.2); CO2 19 mmol/L (22-28); CREATININE 0.7 mg/dl (0.6-1.3); GLUCOSE,RANDOM 99 mg/dl (74-106); TOT PROT 7.3 g/dl (6.4-8.3)
[2017-08-05 13:30] LABS: SGPT/ALT 1228 U/L (10-40)
[2017-08-05 13:43] LABS: SGOT/AST 1880 U/L (10-42)
[2017-08-05] MEDS ORDERED: HALOPERIDOL LACTATE 5 MG/ML IM ONE (13:48)
[2017-08-05] MEDS ORDERED: HALOPERIDOL LACTATE 5 MG/ML ONE (13:48)
[2017-08-05] MEDS ORDERED: LORazepam 2 MG/ML SDV VIAL ONE ×2 (13:48→17:47)
[2017-08-05] MEDS ORDERED: THIAMINE HCL 100 MG TABLET (FP) PO ONE (14:43)
[2017-08-05] MEDS ORDERED: FOLIC ACID 1 MG TABLET (FP) PO ONE (14:43)
[2017-08-05] MEDS ORDERED: DEXTROSE 5%-0.45% SALINE 1,000 ML IV SCH (15:00)
[2017-08-05] MEDS ORDERED: SODIUM CHLORIDE 1,000 ML IV SCH (15:15)
[2017-08-05] MEDS ORDERED: ACETYLCYSTEINE 20% 200MG/ML 30ML VIAL *FOR INJECTION USE ONLY IVPB ONE ×2 (15:18→15:33)
[2017-08-05 15:52] LABS: ACTIVATED PTT 48.2 SECONDS (24.0-38.9)
[2017-08-05 15:56] LABS: INR 1.22 (0.82-1.09); PROTHROMBIN TIME (PATIENT) 13.6 SEC (10.2-13.0)
[2017-08-05] MEDS ORDERED: DEXTROSE 5% IVPB ONE ×3 (16:00→17:00)
[2017-08-05] MEDS ORDERED: WATER IVPB ONE ×3 (16:00→17:00)
[2017-08-05] MEDS ORDERED: ACETYLCYSTEINE IVPB ONE ×3 (16:00→17:00)
--- NOTE | 2017-08-05 16:51 | CON.GI ---
Consult Consult Specialty:: GI Referred by:: ED - History of Present Illness History of Present Illness: A 47 yom active ETOH abuser including 3 hrs prior to arrival to ED presents with epigastric pain vomiting and dyspepsia this am. No reports of fever, chills , melena, hematochezia, hematemesis, odynophagia. Was agitated and received Haldodl and Ativan. At the time of this encounter, the patient is lethargic, arousable, however unable to maintain conversation, or keep focus. Bloodwork revealed transaminases >1200 ALT and 1800 AST, with near normal bili, ALP. NOrmal BUN, Cr, PT/INR 4 - History Source History Provided By: Medical Record Limitations to Obtaining History: Clinical Condition - Alcohol/Substance Use Hx Alcohol Use: Yes - Smoking History Smoking history: Never smoked Have you smoked in the past 12 months: No Home Medications - Allergies Allergies/Adverse Reactions: Allergies Allergy/AdvReac Type Severity Reaction Status Date / Time No Known Allergies Allergy Verified 08/05/17 11:59 - Home Medications Home Medications: Ambulatory Orders Cetirizine HCl [Zyrtec -] 10 mg PO DAILY 02/13/17 Duloxetine HCl 60 mg PO ASDIR 02/13/17 Escitalopram Oxalate [Lexapro -] 10 mg PO DAILY 02/13/17 Amlodipine Besylate [Norvasc -] 10 mg PO DAILY #30 tablet 02/17/17 Folic Acid - 1 mg PO DAILY tablet 02/17/17 Family Disease History - Family Disease History Family History: Unable to Obtain Review of Systems Findings/Remarks: as per H&P, unable to obtain at the time of this encounter Physical Exam-GI Vital Signs: Vital Signs Temperature 97.6 F 08/05/17 11:58 Pulse Rate 99 H 08/05/17 15:00 Respiratory Rate 16 08/05/17 15:00 Blood Pressure 142/77 08/05/17 15:00 O2 Sat by Pulse Oximetry (%) 98 08/05/17 15:00 Constitutional: Yes: No Distress, Other (sedated) Eyes: Yes: Conjunctiva Clear HENT: Yes: Atraumatic Neck: Yes: Supple Cardiovascular: Yes: Regular Rate and Rhythm Respiratory: Yes: Regular Gastrointestinal Inspection: No: Distention, Scars ...Palpate: Yes: Soft. No: Firm/Rigid, Guarding, Mass, Tenderness, Tenderness, Epigastium, Tenderness, Rebound ...Percussion: No: Fluid Wave Edema: No Integumentary: No: Jaundice Neurological: Yes: Confusion, Lethargy Labs: CBC, BMP 08/05/17 12:25 08/05/17 12:25 INR, PTT INR 1.22 (0.82-1.09) 08/05/17 15:00 CBCD WBC 7.3 K/mm3 (4.0-10.8) 08/05/17 12:25 RBC 6.08 M/mm3 (4.00-5.60) H D 08/05/17 12:25 Hgb 17.0 GM/dl (11.7-16.9) H D 08/05/17 12:25 Hct 51.5 % (35.4-49) H D 08/05/17 12:25 MCV 84.8 fl (80-96) 08/05/17 12:25 MCHC 33.1 g/dl (32.0-35.9) 08/05/17 12:25 RDW 13.5 % (11.9-15.9) 08/05/17 12:25 Plt Count 270 K/MM3 (134-434) D 08/05/17 12:25 MPV 10.0 fl (7.5-11.1) 08/05/17 12:25 Initial Vital Signs Temp Pulse Resp BP Pulse Ox 97.6 F 111 H 18 152/98 98 08/05/17 11:58 08/05/17 11:58 08/05/17 11:58 08/05/17 11:58 08/05/17 11:58 Current Medications Generic Name Dose Route Start Last Admin Trade Name Freq PRN Reason Stop Dose Admin Heparin Sodium (Porcine) 5,000 unit 08/05/17 22:00 Heparin - SQ TID SAAD Dextrose/Sodium Chloride 1,000 mls @ 125 mls/hr 08/05/17 15:00 08/05/17 15:08 D5-1/2ns - IV 125 mls/hr ASDIR SAAD Administration Sodium Chloride 1,000 mls @ 100 mls/hr 08/05/17 15:15 Normal Saline - IV ASDIR SAAD Acetylcysteine 12,600 mg/ 263 mls @ 263 mls/hr 08/05/17 16:01 08/05/17 16:10 Dextrose IVPB 08/05/17 17:00 263 mls/hr ONCE ONE Administration Acetylcysteine 4,200 mg/ 521 mls @ 130.25 mls/hr 08/05/17 17:00 Dextrose IVPB 08/05/17 20:59 ONCE ONE Home Medications Medication Instructions Recorded Cetirizine HCl [Zyrtec -] 10 mg PO DAILY 02/13/17 Duloxetine HCl 60 mg PO ASDIR 02/13/17 Escitalopram Oxalate [Lexapro -] 10 mg PO DAILY 02/13/17 Amlodipine Besylate [Norvasc -] 10 mg PO DAILY #30 tablet 02/17/17 Folic Acid - 1 mg PO DAILY tablet 02/17/17 CMP Sodium 136 mmol/L (136-145) 08/05/17 12:25 Potassium 3.4 mmol/L (3.5-5.1) L 08/05/17 12:25 Chloride 99 mmol/L (98-107) 08/05/17 12:25 Carbon Dioxide 19 mmol/L (22-28) L D 08/05/17 12:25 Anion Gap 18 (8-16) H 08/05/17 12:25 BUN 17 mg/dl (7-18) D 08/05/17 12:25 Creatinine 0.7 mg/dl (0.6-1.3) D 08/05/17 12:25 Creat Clearance w eGFR > 60 (>60) 08/05/17 12:25 Calcium 8.8 mg/dl (8.4-10.2) 08/05/17 12:25 Total Bilirubin 1.1 mg/dl (0.2-1.0) H D 08/05/17 12:25 AST 1880 U/L (10-42) H 08/05/17 12:25 ALT 1228 U/L (10-40) H D 08/05/17 12:25 Alkaline Phosphatase 102 U/L (32-92) H 08/05/17 12:25 Total Protein 7.3 g/dl (6.4-8.3) 08/05/17 12:25 Albumin 4.4 g/dl (3.5-5.0) 08/05/17 12:25 Imaging - Results Chest X-ray: Report Reviewed Problem List - Problems (1) Hepatitis Code(s): K75.9 - INFLAMMATORY LIVER DISEASE, UNSPECIFIED (2) Alcohol abuse Code(s): F10.10 - ALCOHOL ABUSE, UNCOMPLICATED Assessment/Plan Hepatitis, acute on, possibly chronic liver disease. The current elevation is unlikely due to alcohol alone. R/o toxins, acetaminophen, vascular compromise, thrombosis, etc. R/o acute viral etiology, gall stone disease (less likely). No documented hemodynamic instability to suspect ischemic hepatopathy. Heavily sedated therefore unable to assess true mental status however, given normal PT, PLT, T. Protein, BUN, Cr do not suspect significant hepatic encephalopthy. NAC as ordered Avoid sedatives is possible. Agree with banana bag and electrolyte management Close monitoring of liver enzymes, bili, coagulation profile, and mental status. if PT/INR start to go up will consider transfer to liver center Follow viral hepatitis results, acetaminophen levels. NPO, IVF hydration
[2017-08-05] MEDS ORDERED: methylPREDNISolone NA SUCC 125 MG/2 ML VIAL ONE (17:12)
[2017-08-05] MEDS ORDERED: methylPREDNISolone NA SUCC 125 MG/2 ML VIAL IVPUSH ONE (17:21)
[2017-08-05] MEDS ORDERED: SODIUM CHLORIDE 0.9% 1000 ML INFUS.BAG IV ONE (18:13)
[2017-08-05] MEDS ORDERED: SODIUM CHLORIDE 1,000 ML IV ONE (18:25)
[2017-08-05] MEDS ORDERED: chlordiazePOXIDE HCL 25 MG CAPSULE PO PRN (19:08)
--- NOTE | 2017-08-05 19:15 | HOSP ---
Physical Examination Vital Signs: Vital Signs Temperature 98.1 F 08/05/17 18:15 Pulse Rate 128 H 08/05/17 18:15 Respiratory Rate 20 08/05/17 18:15 Blood Pressure 148/69 08/05/17 18:15 O2 Sat by Pulse Oximetry (%) 96 08/05/17 17:29 Labs: CBC, BMP 08/05/17 12:25 08/05/17 12:25 Hospitalist Encounter Assessment: Patient to be transferred from to [facility] Allergic reaction to NAC, improved with medrol and benadryl PT/IR stable, will monitor Will trend LFT's q4h Acetaminophen level noted, however continue to trend lft's Spoke with ER, pt started to withdraw, was treated with fluids and ativan Moving forward, discussed with Dr. Don can start patient on [facility] detox protocol, avoid excessive sedation Endorsed and d/w to night hospitalist team
--- NOTE | 2017-08-05 19:21 | HP ---
CHIEF COMPLAINT: Epigastric pain, Chest Pain PCP: HISTORY OF PRESENT ILLNESS: This is a 47 y/o man with a past medical history of chronic alcohol abuse. Who presents to the ED with epigastric pain, burning chest pain x 1 week, and vomiting x today. Patient received lethargic but arousable, he admits to drinking 3 cans of Beer today. Patient's alcohol level- 343. Patient was given Ativan and Haldol for withdrawal. Patient was started on Acetycystine in the ED- he developed uticaria/hives, infusion was d/c he was given benadryl and solumederol. ER course was notable for: (1) Transaminitis- 1880/1228/102 (2) T bili 1.1 (3) Lactic Acid 5.0 Recent Travel: None PAST MEDICAL HISTORY: Hypertension Chronic Alcohol Abuse PAST SURGICAL HISTORY: Denies Social History: Smoking: Denies Alcohol: 3 Cans Beer daily Drugs: Denies Lives with family, employed as a [employer] Family History: Denies Allergies acetylcysteine [From Acetadote] Allergy (Verified 08/05/17 17:19) Hives HOME MEDICATIONS: Home Medications Medication Instructions Recorded Cetirizine HCl [Zyrtec -] 10 mg PO DAILY 02/13/17 Duloxetine HCl 60 mg PO ASDIR 02/13/17 Escitalopram Oxalate [Lexapro -] 10 mg PO DAILY 02/13/17 Amlodipine Besylate [Norvasc -] 10 mg PO DAILY #30 tablet 02/17/17 Folic Acid - 1 mg PO DAILY tablet 02/17/17 REVIEW OF SYSTEMS CONSTITUTIONAL: Absent: fever, chills, diaphoresis, generalized weakness, malaise, loss of appetite, weight change HEENT: Absent: rhinorrhea, nasal congestion, throat pain, throat swelling, difficulty swallowing, mouth swelling, ear pain, eye pain, visual changes CARDIOVASCULAR: chest pain Absent: syncope, palpitations, irregular heart rate, lightheadedness, peripheral edema RESPIRATORY: Absent: cough, shortness of breath, dyspnea with exertion, orthopnea, wheezing, stridor, hemoptysis GASTROINTESTINAL: abdominal pain Absent: abdominal distension, nausea, vomiting, diarrhea, constipation, melena, hematochezia GENITOURINARY: Absent: dysuria, frequency, urgency, hesitancy, hematuria, flank pain, genital pain MUSCULOSKELETAL: Absent: myalgia, arthralgia, joint swelling, back pain, neck pain SKIN: Absent: rash, itching, pallor HEMATOLOGIC/IMMUNOLOGIC: Absent: easy bleeding, easy bruising, lymphadenopathy, frequent infections ENDOCRINE: Absent: unexplained weight gain, unexplained weight loss, heat intolerance, cold intolerance NEUROLOGIC: Absent: headache, focal weakness or paresthesias, dizziness, unsteady gait, seizure, mental status changes, bladder or bowel incontinence PSYCHIATRIC: Absent: anxiety, depression, suicidal or homicidal ideation, hallucinations. PHYSICAL EXAMINATION Vital Signs - 24 hr 08/05/17 08/05/17 08/05/17 11:58 15:00 16:59 Temperature 97.6 F 98.7 F Pulse Rate 111 H Pulse Rate [ 99 H 115 H Left Apical] Respiratory 18 16 20 Rate Blood Pressure 152/98 Blood Pressure 142/77 145/75 [Right Arm] O2 Sat by Pulse 98 98 98 Oximetry (%) 08/05/17 08/05/17 17:29 18:15 Temperature 97.8 F 98.1 F Pulse Rate 128 H Pulse Rate [ 114 H Left Apical] Respiratory 20 20 Rate Blood Pressure 148/69 Blood Pressure 156/95 [Right Arm] O2 Sat by Pulse 96 Oximetry (%) GENERAL:Lethargic but arousable, oriented to name only, in no acute distress. HEAD: Normal with no signs of trauma. EYES: Pupils equal, round and reactive to light, extraocular movements intact, sclera anicteric, conjunctiva clear. No lid lag. EARS, NOSE, THROAT: Ears normal, nares patent, oropharynx clear without exudates. Moist mucous membranes. NECK: Normal range of motion, supple without lymphadenopathy, JVD, or masses. LUNGS: Breath sounds equal, clear to auscultation bilaterally. No wheezes, and no crackles. No accessory muscle use. HEART: Sinus Tachycardia, normal S1 and S2 without murmur, rub or gallop. ABDOMEN: Obese, soft, epigastric tenderness, +hepatomegaly, not distended, normoactive bowel sounds, no guarding, no rebound, no masses. No splenomegaly. MUSCULOSKELETAL: Normal range of motion at all joints. No bony deformities or tenderness. No CVA tenderness. UPPER EXTREMITIES: 2+ pulses, warm, well-perfused. No cyanosis. No clubbing. No peripheral edema. LOWER EXTREMITIES: 2+ pulses, warm, well-perfused. No calf tenderness. No peripheral edema. NEUROLOGICAL: Cranial nerves II-XII intact. Slurred speech. Gait not observed. PSYCHIATRIC: Cooperative. Limited eye contact. Somnolent. SKIN: Warm, dry, normal turgor, no rashes or lesions noted, normal capillary refill. Laboratory Results - last 24 hr 08/05/17 08/05/17 08/05/17 12:25 12:25 12:25 WBC 7.3 RBC 6.08 H D Hgb 17.0 H D Hct 51.5 H D MCV 84.8 MCH 28.0 MCHC 33.1 RDW 13.5 Plt Count 270 D MPV 10.0 Neutrophils % 82.7 D Lymphocytes % 12.0 D Monocytes % 3.6 L Eosinophils % 1.5 Basophils % 0.2 PT with INR INR PTT (Actin FS) Sodium 136 Potassium 3.4 L Chloride 99 Carbon Dioxide 19 L D Anion Gap 18 H BUN 17 D Creatinine 0.7 D Creat Clearance w eGFR > 60 Random Glucose 99 D Lactic Acid Calcium 8.8 Total Bilirubin 1.1 H D AST 1880 H ALT 1228 H D Alkaline Phosphatase 102 H Troponin I 0.03 Total Protein 7.3 Albumin 4.4 Lipase 33 Salicylates Acetaminophen Alcohol, Quantitative Acetone, Qual 08/05/17 08/05/17 08/05/17 14:00 15:00 15:00 WBC RBC Hgb Hct MCV MCH MCHC RDW Plt Count MPV Neutrophils % Lymphocytes % Monocytes % Eosinophils % Basophils % PT with INR INR PTT (Actin FS) Sodium Potassium Chloride Carbon Dioxide Anion Gap BUN Creatinine Creat Clearance w eGFR Random Glucose Lactic Acid 5.0 H* Calcium Total Bilirubin AST ALT Alkaline Phosphatase Troponin I Total Protein Albumin Lipase Salicylates Acetaminophen Alcohol, Quantitative 343.3 H* Acetone, Qual Negative 08/05/17 08/05/17 08/05/17 15:00 15:00 15:00 WBC RBC Hgb Hct MCV MCH MCHC RDW Plt Count MPV Neutrophils % Lymphocytes % Monocytes % Eosinophils % Basophils % PT with INR 13.6 H INR 1.22 PTT (Actin FS) 48.2 H D Sodium Potassium Chloride Carbon Dioxide Anion Gap BUN Creatinine Creat Clearance w eGFR Random Glucose Lactic Acid Calcium Total Bilirubin AST ALT Alkaline Phosphatase Troponin I Total Protein Albumin Lipase Salicylates < 4.0 Acetaminophen < 2.000 L Alcohol, Quantitative Acetone, Qual ASSESSMENT/PLAN: This is a 47 y/o man with a PMHx of: Alcohol Abuse, HTN. Admitted to ICU for Acute Hepatic Failure, Alcohol Intoxication for further evaluation of their emergent condition. 1. Acute Hepatic Failure - Likely secondary to Chronic Alcohol Abuse vs Acetaminophen Overdose vs unknown etiology - Will monitor for metabolic derangements, encephalopathy, cerebral edema - Seizure precautions - Continue Cardiac Monitoring - MELD Score 11 - GI following - Alcohol level- 343 - Repeat Alcohol level in am - Lactic Acid 5.0~ 3.1 - Will continue to trend LA -concern for metabolic acidosis - CMP Q4h - Hepatitis profile- pending - Monitor INR - Continue IVF- monitor closely secondary to HTN hx - Abdominal US in am 2. Alcohol Intoxication - Librum Protocol - Consider Detox Consult - CIWA Score 5 - Continue cardiac monitoring - Fall Precautions - Seizure Precautions - Neuro checks - Repeat Alcohol Level in am - Alcohol Cessation - Folic Acid - Thiamine - MVI 3. Lactic Acidosis - Likely Lactic Acid B, B2 secondary to Hepatic Failure, alcohols - Continue IVFs - Trend LA - Monitor for Metabolic Derangements, treat accordingly 4. 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 Hypertension - Monitor BP - Continue Norvasc - Monitor renal function 6. FEN - NS@100cc/hr - Replete lytes prn - Clear Diet 7. DVT Prophylaxis - SCDs - Heparin SQ Code Status: Full Code Dispo: Requires Inpatient Care Problem List - Problem (1) Liver failure Code(s): K72.90 - HEPATIC FAILURE, UNSPECIFIED WITHOUT COMA (2) Transaminitis Code(s): R74.0 - NONSPEC ELEV OF LEVELS OF TRANSAMNS & LACTIC ACID DEHYDRGNSE (3) Alcohol intoxication Code(s): F10.929 - ALCOHOL USE, UNSPECIFIED WITH INTOXICATION, UNSPECIFIED (4) Lactic acidosis Code(s): E87.2 - ACIDOSIS (5) Alcohol abuse Code(s): F10.10 - ALCOHOL ABUSE, UNCOMPLICATED (6) Hepatitis Code(s): K75.9 - INFLAMMATORY LIVER DISEASE, UNSPECIFIED (7) Chest pain Code(s): R07.9 - CHEST PAIN, UNSPECIFIED (8) Gastritis Code(s): K29.70 - GASTRITIS, UNSPECIFIED, WITHOUT BLEEDING Qualifiers: Gastritis type: alcoholic Chronicity: chronic Gastritis bleeding: without bleeding Qualified Code(s): K29.20 - Alcoholic gastritis without bleeding (9) DVT prophylaxis Code(s): AAS2540 - Visit type - Emergency Visit Emergency Visit: Yes ED Registration Date: 08/05/17 Care time: The patient presented to the Emergency Department on the above date and was hospitalized for further evaluation of their emergent condition. - New Patient This patient is new to me today: Yes Date on this admission: 08/05/17 - Critical Care Critical Care patient: Yes Total Critical Care Time (in minutes): 35 Critical Care Statement: The care of this patient involved high complexity decision making to prevent further life threatening deterioration of the patient 's condition and/or to evaluate & treat vital organ system(s) failure or risk of failure.
[2017-08-05 20:46] LABS: INR 1.17 (0.82-1.09); PROTHROMBIN TIME (PATIENT) 13.2 SEC (9.98-11.88)
--- NOTE | 2017-08-05 21:01 | CONSULT ---
Consult Consult Specialty:: Pulmonary Critical Care Reason for Consultation:: ?Liver injury - History of Present Illness Chief Complaint: Abdominal pain History of Present Illness: Pt is a 47 yo male with h/o ETOH abuse who presented to [facility] today epigastric pain and vomiting. No report of hematemesis or melena. Initial labs notable for AST/ALT 1880/1228, total bili 1.1, lactate 5, Cr 0.7, INR 1.2, Hgb 17, alcohol level of 343, neg acetaminophen and salicylate levels. Pt was initially started on NAC drip however it was discontinued when pt started itching. He recd medrol and benadryl for possible allergic reaction. Also recd ativan for possible ETOH withdrawal. Pt then transferred to our ICU for further management. On arrival pt drowsy but easily arousable. States has had abdominal pain for the past week, denies other symptoms. Pt stated he drinks every day, about 3 cans of beer with no other alcohol. Active Medications Chlordiazepoxide HCl (Librium -) 50 mg PO [id number] SAAD Stop: 08/06/17 17:01 Chlordiazepoxide HCl (Librium -) 25 mg PO [id number] SAAD Stop: 08/07/17 17:01 Chlordiazepoxide HCl (Librium -) 15 mg PO [id number] SAAD Stop: 08/08/17 17:01 Chlordiazepoxide HCl (Librium -) 25 mg PO Q4H PRN PRN Reason: WITHDRAWAL(CONT SUBST) Stop: 08/08/17 19:07 Chlorhexidine Gluconate (Hibiclens For Decolonization -) 1 applic TP HS SAAD Heparin Sodium (Porcine) (Heparin -) 5,000 unit SQ TID SAAD Dextrose/Sodium Chloride (D5-1/2ns -) 1,000 mls @ 125 mls/hr IV ASDIR SAAD Last Admin: 08/05/17 15:08 Dose: 125 mls/hr Sodium Chloride (Normal Saline -) 1,000 mls @ 100 mls/hr IV ASDIR SAAD Acetylcysteine 4,200 mg/ (Dextrose) 521 mls @ 130.25 mls/hr IVPB ONCE ONE Stop: 08/05/17 20:59 Last Admin: 08/05/17 17:38 Dose: Not Given Mupirocin (Bactroban Ointment (For Decolonization) -) 1 applic NS BID SAAD Stop: 08/10/17 21:59 - Alcohol/Substance Use Hx Alcohol Use: Yes - Smoking History Smoking history: Never smoked Have you smoked in the past 12 months: No Home Medications - Allergies Allergies/Adverse Reactions: Allergies Allergy/AdvReac Type Severity Reaction Status Date / Time acetylcysteine Allergy Hives Verified 08/05/17 17:19 [From Acetadote] - Home Medications Home Medications: Ambulatory Orders Cetirizine HCl [Zyrtec -] 10 mg PO DAILY 02/13/17 Duloxetine HCl 60 mg PO ASDIR 02/13/17 Escitalopram Oxalate [Lexapro -] 10 mg PO DAILY 02/13/17 Amlodipine Besylate [Norvasc -] 10 mg PO DAILY #30 tablet 02/17/17 Folic Acid - 1 mg PO DAILY tablet 02/17/17 Physical Exam Vital Signs: Vital Signs Temperature 98.6 F 08/05/17 19:45 Pulse Rate 123 H 08/05/17 19:45 Respiratory Rate 22 08/05/17 19:45 Blood Pressure 126/67 08/05/17 19:45 O2 Sat by Pulse Oximetry (%) 96 08/05/17 17:29 Cardiovascular: Yes: Tachycardia, S1, S2 Respiratory: Yes: CTA Bilaterally Gastrointestinal: Yes: Soft, Hyperactive Bowel Sounds. No: Tenderness, Tenderness, Rebound Extremities: Yes: WNL Edema: No Peripheral Pulses WNL: Yes Neurological: Yes: Other (drowsy, arousable to voice, oriented to name and place. Moving all four ext) Labs: CBC, BMP 08/05/17 12:25 08/05/17 12:25 Imaging - Results X-ray: Image Reviewed Assessment/Plan Transaminitis, unclear etiology. Normal INR, no encephalopathy Metabolic acidosis in the setting of elevated lactate ETOH abuse, c/f ETOH withdrawal -GI following -neg acetaminophen and salicylate -serial hepatic panels and coags -f/u hepatitis panel -send utox -abdominal US -CIWA protocol for ETOH withdrawal, valium prn -thiamine and folic acid -hydration -f/u repeat lactate -send troponin -monitor mental status closely, will need head CT if develops coagulopathy -monitor FS, at risk for hypoglycemia if worsening liver function -heparin SubQ for ppx -if worsening liver function (coagulopathy, encephalopathy) will need to be transferred to tertiary center [facility] Critical Care Time: 45 min
[2017-08-05 22:09] LABS: ALBUMIN 3.5 g/dl (3.4-5.0); ANION GAP 14 (8-16); CALCIUM 7.7 mg/dL (8.5-10.1); CO2 22 mmol/L (21-32); GLUCOSE,RANDOM 192 mg/dL (74-106)
[2017-08-05 22:19] LABS: ALK PHOS 135 U/L (45-117); BILIRUBIN,DIRECT 0.2 mg/dL (0.0-0.2); BILIRUBIN,TOTAL 0.7 mg/dL (0.2-1.0); CREATININE 0.9 mg/dL (0.7-1.3); TOT PROT 6.9 g/dl (6.4-8.2); TROPONIN I 0.09 ng/ml (0.00-0.05)
[2017-08-05 22:21] LABS: SGOT/AST 1189 U/L (15-37); SGPT/ALT 1385 U/L (12-78)
[2017-08-05 22:38] VITALS: BMI 31.6
[2017-08-05] MEDS: CHLORHEXIDINE GLUCONATE 4% CLEANSER FOR DECOLONIZATION TP SCH (22:40)
[2017-08-05] MEDS: MUPIROCIN 2% TOPICAL OINTMENT FOR DECOLONIZATION NS SCH (22:40)
[2017-08-05] MEDS: HEPARIN NA (PORCINE) 5,000 UNITS/ML 1ML VIAL SQ SCH (22:40)
[2017-08-05] MEDS: chlordiazePOXIDE HCL 25 MG CAPSULE PO SCH (22:45)
[2017-08-06 01:00] LABS: ALBUMIN 3.7 g/dl (3.4-5.0); BILIRUBIN,DIRECT 0.2 mg/dL (0.0-0.2); BILIRUBIN,TOTAL 0.6 mg/dL (0.2-1.0); TOT PROT 6.9 g/dl (6.4-8.2)
[2017-08-06 01:38] LABS: URINE MARIJUANA THC NEGATIVE ng/ml (CUTOFF=50)
[2017-08-06] MEDS: chlordiazePOXIDE HCL 25 MG CAPSULE PO PRN (01:41)
[2017-08-06 05:06] LABS: BASOPHIL 0.4 % (0-2.0); MCH 28.5 pg (25.7-33.7); MCHC 34.2 g/dl (32.0-35.9); MEAN CELL VOLUME 83.5 fl (80-96); MEAN PLT VOLUME 9.7 fl (7.5-11.1); NEUTROPHILS 86.2 % (42.8-82.8); PLATELET COUNT 229 K/MM3 (134-434); WHITE BLOOD COUNT 3.5 K/mm3 (4.0-10.0)
[2017-08-06] MEDS ORDERED: SODIUM CHLORIDE 1,000 ML IV SCH (05:06)
[2017-08-06] MEDS: chlordiazePOXIDE HCL 25 MG CAPSULE PO SCH ×4 (05:09→22:14)
[2017-08-06] MEDS: HEPARIN NA (PORCINE) 5,000 UNITS/ML 1ML VIAL SQ SCH ×3 (05:09→21:28)
[2017-08-06 05:48] LABS: ALBUMIN 3.7 g/dl (3.4-5.0); ANION GAP 10 (8-16); BILIRUBIN,TOTAL 0.8 mg/dL (0.2-1.0); CALCIUM 8.2 mg/dL (8.5-10.1); CO2 28 mmol/L (21-32); CREATININE 0.8 mg/dL (0.7-1.3); GLUCOSE,RANDOM 211 mg/dL (74-106); MAGNESIUM 2.3 mg/dL (1.8-2.4); PHOSPHOROUS 2.5 mg/dL (2.5-4.9); TOT PROT 6.8 g/dl (6.4-8.2)
[2017-08-06 05:52] LABS: ALBUMIN 3.8 g/dl (3.4-5.0); BILIRUBIN,DIRECT 0.3 mg/dL (0.0-0.2); BILIRUBIN,TOTAL 0.8 mg/dL (0.2-1.0)
[2017-08-06 05:53] LABS: ALK PHOS 131 U/L (45-117); SGOT/AST 733 U/L (15-37); SGPT/ALT 1140 U/L (12-78)
[2017-08-06] MEDS ORDERED: amLODIPine BESYLATE 10 MG TABLET (FP) PO ONE (06:17)
[2017-08-06 08:58] LABS: INR 1.04 (0.82-1.09); PROTHROMBIN TIME (PATIENT) 11.7 SEC (9.98-11.88)
[2017-08-06] MEDS: FOLIC ACID 1 MG TABLET (FP) PO SCH (09:09)
[2017-08-06] MEDS: THIAMINE HCL 100 MG TABLET (FP) PO SCH (09:09)
[2017-08-06] MEDS: MUPIROCIN 2% TOPICAL OINTMENT FOR DECOLONIZATION NS SCH ×2 (09:13→21:27)
[2017-08-06] MEDS ORDERED: MULTIVITAMINS (DAILY MVI) TABLET (FP) PO SCH (10:00)
[2017-08-06] MEDS ORDERED: LABETALOL HCL 5 MG/1 ML (100MG/20 ML VIAL) IVPUSH ONE (10:49)
--- NOTE | 2017-08-06 11:45 | PN ---
Progress Note, Physician History of Present Illness: Awake, alert. Not in distress. Anxious. Now recalls taking OTC sleeping Pills - cannot recall name, 4 - Current Medication List Current Medications: Active Medications Amlodipine Besylate (Norvasc -) 10 mg PO DAILY [facility] Chlordiazepoxide HCl (Librium -) 50 mg PO [id number] [facility] Stop: 08/06/17 17:01 Last Admin: 08/06/17 11:06 Dose: 50 mg Chlordiazepoxide HCl (Librium -) 25 mg PO [id number] [facility] Stop: 08/07/17 17:01 Chlordiazepoxide HCl (Librium -) 15 mg PO [id number] [facility] Stop: 08/08/17 17:01 Chlordiazepoxide HCl (Librium -) 25 mg PO Q4H PRN PRN Reason: WITHDRAWAL(CONT SUBST) Stop: 08/08/17 19:07 Last Admin: 08/06/17 01:41 Dose: 25 mg Chlorhexidine Gluconate (Hibiclens For Decolonization -) 1 applic TP HS [facility] Last Admin: 08/05/17 22:40 Dose: 1 applic Folic Acid (Folic Acid -) 1 mg PO DAILY [facility] Last Admin: 08/06/17 09:09 Dose: 1 mg Heparin Sodium (Porcine) (Heparin -) 5,000 unit SQ TID [facility] Last Admin: 08/06/17 05:09 Dose: 5,000 unit Sodium Chloride (Normal Saline -) 1,000 mls @ 60 mls/hr IV ASDIR [facility] Last Admin: 08/06/17 05:11 Dose: 60 mls/hr Labetalol HCl (Normodyne Injection -) 10 mg IVPUSH ONCE ONE Stop: 08/06/17 10:50 Last Admin: 08/06/17 11:09 Dose: 10 mg Multivitamins/Minerals/Vitamin C (Tab-A-Vit -) 1 tab PO DAILY [facility] Last Admin: 08/06/17 09:09 Dose: 1 tab Mupirocin (Bactroban Ointment (For Decolonization) -) 1 applic NS BID [facility] Stop: 08/10/17 21:59 Last Admin: 08/06/17 09:13 Dose: 1 applic Thiamine HCl (Vitamin B1 -) 100 mg PO DAILY [facility] Last Admin: 08/06/17 09:09 Dose: 100 mg - Objective Vital Signs: Vital Signs Temperature 98.8 F 08/06/17 10:00 Pulse Rate 118 H 08/06/17 10:00 Respiratory Rate 18 08/06/17 10:00 Blood Pressure 182/113 08/06/17 10:00 O2 Sat by Pulse Oximetry (%) 95 08/06/17 09:00 Constitutional: Yes: No Distress, Other (tremors) Eyes: Yes: Conjunctiva Clear HENT: Yes: Atraumatic Neck: Yes: Supple Respiratory: Yes: Regular, CTA Bilaterally Gastrointestinal: Yes: Soft. No: Ascites, Melena, Rectal Bleeding, Tenderness Neurological: Yes: Tremors Labs: CBC, BMP 08/06/17 04:30 08/06/17 04:30 INR, PTT INR 1.04 (0.82-1.09) 08/06/17 08:00 Laboratory Results - last 24 hr 08/05/17 08/05/17 08/05/17 12:25 12:25 12:25 WBC 7.3 RBC 6.08 H D Hgb 17.0 H D Hct 51.5 H D MCV 84.8 MCH 28.0 MCHC 33.1 RDW 13.5 Plt Count 270 D MPV 10.0 Neutrophils % 82.7 D Lymphocytes % 12.0 D Monocytes % 3.6 L Eosinophils % 1.5 Basophils % 0.2 PT with INR INR PTT (Actin FS) Sodium 136 Potassium 3.4 L Chloride 99 Carbon Dioxide 19 L D Anion Gap 18 H BUN 17 D Creatinine 0.7 D Creat Clearance w eGFR > 60 Random Glucose 99 D Serum Osmolality Lactic Acid Calcium 8.8 Phosphorus Magnesium Total Bilirubin 1.1 H D Direct Bilirubin AST 1880 H ALT 1228 H D Alkaline Phosphatase 102 H Creatine Kinase Troponin I 0.03 Total Protein 7.3 Albumin 4.4 Cholesterol Lipase 33 Salicylates Opiates Screen Methadone Screen Acetaminophen Barbiturate Screen Phencyclidine Screen Ur Amphetamines Screen MDMA (Ecstasy) Screen Benzodiazepines Screen Cocaine Screen U Marijuana (THC) Screen Alcohol, Quantitative Acetone, Qual Hepatitis A IgM Ab Hep Bs Antigen Hep Bs Antibody, Quant Hep B Core IgM Ab Hep B Core Ab Interpret Hepatitis C Ab (EIA) 08/05/17 08/05/17 08/05/17 14:00 15:00 15:00 WBC RBC Hgb Hct MCV MCH MCHC RDW Plt Count MPV Neutrophils % Lymphocytes % Monocytes % Eosinophils % Basophils % PT with INR INR PTT (Actin FS) Sodium Potassium Chloride Carbon Dioxide Anion Gap BUN Creatinine Creat Clearance w eGFR Random Glucose Serum Osmolality 364 H Lactic Acid 5.0 H* Calcium Phosphorus Magnesium Total Bilirubin Direct Bilirubin AST ALT Alkaline Phosphatase Creatine Kinase Troponin I Total Protein Albumin Cholesterol Lipase Salicylates Opiates Screen Methadone Screen Acetaminophen Barbiturate Screen Phencyclidine Screen Ur Amphetamines Screen MDMA (Ecstasy) Screen Benzodiazepines Screen Cocaine Screen U Marijuana (THC) Screen Alcohol, Quantitative 343.3 H* Acetone, Qual Hepatitis A IgM Ab Hep Bs Antigen Hep Bs Antibody, Quant Hep B Core IgM Ab Hep B Core Ab Interpret Hepatitis C Ab (EIA) 08/05/17 08/05/17 08/05/17 15:00 15:00 15:00 WBC RBC Hgb Hct MCV MCH MCHC RDW Plt Count MPV Neutrophils % Lymphocytes % Monocytes % Eosinophils % Basophils % PT with INR INR PTT (Actin FS) Sodium Potassium Chloride Carbon Dioxide Anion Gap BUN Creatinine Creat Clearance w eGFR Random Glucose Serum Osmolality Lactic Acid Calcium Phosphorus Magnesium Total Bilirubin Direct Bilirubin AST ALT Alkaline Phosphatase Creatine Kinase Troponin I Total Protein Albumin Cholesterol Lipase Salicylates < 4.0 Opiates Screen Methadone Screen Acetaminophen < 2.000 L Barbiturate Screen Phencyclidine Screen Ur Amphetamines Screen MDMA (Ecstasy) Screen Benzodiazepines Screen Cocaine Screen U Marijuana (THC) Screen Alcohol, Quantitative Acetone, Qual Negative Hepatitis A IgM Ab Hep Bs Antigen Hep Bs Antibody, Quant Hep B Core IgM Ab Hep B Core Ab Interpret Hepatitis C Ab (EIA) 08/05/17 08/05/17 08/05/17 15:00 15:00 19:52 WBC RBC Hgb Hct MCV MCH MCHC RDW Plt Count MPV Neutrophils % Lymphocytes % Monocytes % Eosinophils % Basophils % PT with INR 13.6 H INR 1.22 PTT (Actin FS) 48.2 H D Sodium Potassium Chloride Carbon Dioxide Anion Gap BUN Creatinine Creat Clearance w eGFR Random Glucose Serum Osmolality Lactic Acid Calcium Phosphorus Magnesium Total Bilirubin Direct Bilirubin AST ALT Alkaline Phosphatase Creatine Kinase Troponin I Total Protein Albumin Cholesterol 155 Lipase Salicylates Opiates Screen Methadone Screen Acetaminophen Barbiturate Screen Phencyclidine Screen Ur Amphetamines Screen MDMA (Ecstasy) Screen Benzodiazepines Screen Cocaine Screen U Marijuana (THC) Screen Alcohol, Quantitative Acetone, Qual Hepatitis A IgM Ab Negative Hep Bs Antigen Negative Hep Bs Antibody, Quant 3.4 L Hep B Core IgM Ab Negative Hep B Core Ab Interpret Negative Hepatitis C Ab (EIA) 0.2 08/05/17 08/05/17 08/05/17 19:52 19:52 19:52 WBC RBC Hgb Hct MCV MCH MCHC RDW Plt Count MPV Neutrophils % Lymphocytes % Monocytes % Eosinophils % Basophils % PT with INR 13.20 H INR 1.17 H PTT (Actin FS) Sodium Potassium Chloride Carbon Dioxide Anion Gap BUN Creatinine Creat Clearance w eGFR Random Glucose Serum Osmolality Lactic Acid Calcium Phosphorus Magnesium Total Bilirubin 0.6 D Direct Bilirubin 0.2 AST 1337 H ALT 1401 H D Alkaline Phosphatase 117 D Creatine Kinase Troponin I Total Protein 6.9 Albumin Cancelled 3.7 Cholesterol Lipase Salicylates Opiates Screen Methadone Screen Acetaminophen Barbiturate Screen Phencyclidine Screen Ur Amphetamines Screen MDMA (Ecstasy) Screen Benzodiazepines Screen Cocaine Screen U Marijuana (THC) Screen Alcohol, Quantitative Acetone, Qual Hepatitis A IgM Ab Hep Bs Antigen Hep Bs Antibody, Quant Hep B Core IgM Ab Hep B Core Ab Interpret Hepatitis C Ab (EIA) 08/05/17 08/05/17 08/05/17 21:00 21:00 21:00 WBC RBC Hgb Hct MCV MCH MCHC RDW Plt Count MPV Neutrophils % Lymphocytes % Monocytes % Eosinophils % Basophils % PT with INR INR PTT (Actin FS) Sodium 135 L Potassium 3.9 Chloride 99 Carbon Dioxide 22 D Anion Gap 14 BUN 17 D Creatinine 0.9 D Creat Clearance w eGFR Random Glucose 192 H D Serum Osmolality Lactic Acid 3.1 H* Calcium 7.7 L Phosphorus Magnesium Total Bilirubin 0.7 Direct Bilirubin 0.2 AST 1189 H ALT 1385 H Alkaline Phosphatase 135 H Creatine Kinase Troponin I 0.09 H D Total Protein 6.9 Albumin 3.5 Cholesterol Lipase Salicylates Opiates Screen Negative Methadone Screen Negative Acetaminophen Barbiturate Screen Negative Phencyclidine Screen Negative Ur Amphetamines Screen Negative MDMA (Ecstasy) Screen Negative Benzodiazepines Screen Negative Cocaine Screen Negative U Marijuana (THC) Screen Negative Alcohol, Quantitative Acetone, Qual Hepatitis A IgM Ab Hep Bs Antigen Hep Bs Antibody, Quant Hep B Core IgM Ab Hep B Core Ab Interpret Hepatitis C Ab (EIA) 08/06/17 08/06/17 08/06/17 04:30 04:30 04:30 WBC 3.5 L D RBC 5.07 Hgb 14.5 Hct 42.3 MCV 83.5 MCH 28.5 MCHC 34.2 RDW 14.0 Plt Count 229 D MPV 9.7 Neutrophils % 86.2 H Lymphocytes % 12.3 D Monocytes % 1.1 L D Eosinophils % 0.0 D Basophils % 0.4 PT with INR INR PTT (Actin FS) Sodium 137 Potassium 3.8 Chloride 99 Carbon Dioxide 28 D Anion Gap 10 BUN 18 Creatinine 0.8 Creat Clearance w eGFR > 60 Random Glucose 211 H Serum Osmolality Lactic Acid Calcium 8.2 L Phosphorus 2.5 Magnesium 2.3 Total Bilirubin 0.8 0.8 Direct Bilirubin 0.3 H D AST 733 H D 733 H ALT 1140 H 1139 H Alkaline Phosphatase 131 H 129 H Creatine Kinase Troponin I Total Protein 6.8 7.0 Albumin 3.7 3.8 Cholesterol Lipase Salicylates Opiates Screen Methadone Screen Acetaminophen Barbiturate Screen Phencyclidine Screen Ur Amphetamines Screen MDMA (Ecstasy) Screen Benzodiazepines Screen Cocaine Screen U Marijuana (THC) Screen Alcohol, Quantitative Acetone, Qual Hepatitis A IgM Ab Hep Bs Antigen Hep Bs Antibody, Quant Hep B Core IgM Ab Hep B Core Ab Interpret Hepatitis C Ab (EIA) 08/06/17 08/06/17 08/06/17 04:30 04:30 08:00 WBC RBC Hgb Hct MCV MCH MCHC RDW Plt Count MPV Neutrophils % Lymphocytes % Monocytes % Eosinophils % Basophils % PT with INR 11.70 INR 1.04 PTT (Actin FS) Sodium Potassium Chloride Carbon Dioxide Anion Gap BUN Creatinine Creat Clearance w eGFR Random Glucose Serum Osmolality Lactic Acid 2.1 H* Calcium Phosphorus Magnesium Total Bilirubin Direct Bilirubin AST ALT Alkaline Phosphatase Creatine Kinase Troponin I Total Protein Albumin Cholesterol Lipase Salicylates Opiates Screen Methadone Screen Acetaminophen Barbiturate Screen Phencyclidine Screen Ur Amphetamines Screen MDMA (Ecstasy) Screen Benzodiazepines Screen Cocaine Screen U Marijuana (THC) Screen Alcohol, Quantitative < 5.0 Acetone, Qual Hepatitis A IgM Ab Hep Bs Antigen Hep Bs Antibody, Quant Hep B Core IgM Ab Hep B Core Ab Interpret Hepatitis C Ab (EIA) 08/06/17 08/06/17 08:20 09:50 WBC RBC Hgb Hct MCV MCH MCHC RDW Plt Count MPV Neutrophils % Lymphocytes % Monocytes % Eosinophils % Basophils % PT with INR INR PTT (Actin FS) Sodium Potassium Chloride Carbon Dioxide Anion Gap BUN Creatinine Creat Clearance w eGFR Random Glucose Serum Osmolality Lactic Acid 6.9 H* Calcium Phosphorus Magnesium Total Bilirubin Direct Bilirubin AST ALT Alkaline Phosphatase Creatine Kinase Cancelled Troponin I Cancelled Total Protein Albumin Cholesterol Lipase Salicylates Opiates Screen Methadone Screen Acetaminophen Barbiturate Screen Phencyclidine Screen Ur Amphetamines Screen MDMA (Ecstasy) Screen Benzodiazepines Screen Cocaine Screen U Marijuana (THC) Screen Alcohol, Quantitative Acetone, Qual Hepatitis A IgM Ab Hep Bs Antigen Hep Bs Antibody, Quant Hep B Core IgM Ab Hep B Core Ab Interpret Hepatitis C Ab (EIA) CBCD WBC 3.5 K/mm3 (4.0-10.0) L D 08/06/17 04:30 RBC 5.07 M/mm3 (4.00-5.60) 08/06/17 04:30 Hgb 14.5 GM/dL (11.7-16.9) 08/06/17 04:30 Hct 42.3 % (35.4-49) 08/06/17 04:30 MCV 83.5 fl (80-96) 08/06/17 04:30 MCHC 34.2 g/dl (32.0-35.9) 08/06/17 04:30 RDW 14.0 % (11.9-15.9) 08/06/17 04:30 Plt Count 229 K/MM3 (134-434) D 08/06/17 04:30 MPV 9.7 fl (7.5-11.1) 08/06/17 04:30 CMP Sodium 137 mmol/L (136-145) 08/06/17 04:30 Potassium 3.8 mmol/L (3.5-5.1) 08/06/17 04:30 Chloride 99 mmol/L (98-107) 08/06/17 04:30 Carbon Dioxide 28 mmol/L (21-32) D 08/06/17 04:30 Anion Gap 10 (8-16) 08/06/17 04:30 BUN 18 mg/dL (7-18) 08/06/17 04:30 Creatinine 0.8 mg/dL (0.7-1.3) 08/06/17 04:30 Creat Clearance w eGFR > 60 (>60) 08/06/17 04:30 Calcium 8.2 mg/dL (8.5-10.1) L 08/06/17 04:30 Total Bilirubin 0.8 mg/dL (0.2-1.0) 08/06/17 04:30 AST 733 U/L (15-37) H 08/06/17 04:30 ALT 1139 U/L (12-78) H 08/06/17 04:30 Alkaline Phosphatase 129 U/L (45-117) H 08/06/17 04:30 Total Protein 7.0 g/dl (6.4-8.2) 08/06/17 04:30 Albumin 3.8 g/dl (3.4-5.0) 08/06/17 04:30 Problem List - Problems (1) Hepatitis Code(s): K75.9 - INFLAMMATORY LIVER DISEASE, UNSPECIFIED (2) Alcohol abuse Code(s): F10.10 - ALCOHOL ABUSE, UNCOMPLICATED Assessment/Plan Hepatitis, acute on, possibly chronic liver disease. The current elevation is unlikely due to alcohol alone. ?Toxins/medications, vascular compromise, thrombosis, acute viral etiology, gall stone disease (less likely). No documented hemodynamic instability to suspect ischemic hepatopathy. Allergic to NAC ETOH withdrawal management Close monitoring of liver enzymes, bili, coagulation profile, and mental status. if PT/INR start to go up will consider transfer to liver center Follow viral hepatitis results US abdomen Clear liquid diet
[2017-08-06 12:05] LABS: TROPONIN I 0.08 ng/ml (0.00-0.05)
--- NOTE | 2017-08-06 12:29 | PN ---
Teaching Attending Note Name of Resident: Larry Escobar ATTENDING PHYSICIAN STATEMENT I saw and evaluated the patient. I reviewed the resident's note and discussed the case with the resident. I agree with the resident's findings and plan as documented. SUBJECTIVE: Pt seen and examined in the ICU. Somnolent but arousable. Complaining of RUQ pain. No fevers or chills. No nausea or vomiting. OBJECTIVE: Last Vital Signs Temp Pulse Resp BP Pulse Ox 98.8 F 118 H 18 182/113 95 08/06/17 10:00 08/06/17 10:00 08/06/17 10:00 08/06/17 10:00 08/06/17 09:00 Intake & Output 08/03/17 08/04/17 08/05/17 08/06/17 23:59 23:59 23:59 23:59 Intake Total 1550 1020 Output Total 1000 800 Balance 550 220 Weight 190 lb 3 oz 187 lb 1 oz Gen: somnolent but arousable Heart: tachycardic, regular Lung: decreased breath sounds at the bases Abd: softly distended, RUQ tenderness, no rebound Ext: no edema CBC, BMP 08/06/17 04:30 08/06/17 04:30 Active Medications Amlodipine Besylate (Norvasc -) 10 mg PO DAILY [facility] Chlordiazepoxide HCl (Librium -) 50 mg PO [id number] [facility] Stop: 08/06/17 17:01 Last Admin: 08/06/17 11:06 Dose: 50 mg Chlordiazepoxide HCl (Librium -) 25 mg PO [id number] [facility] Stop: 08/07/17 17:01 Chlordiazepoxide HCl (Librium -) 15 mg PO [id number] [facility] Stop: 08/08/17 17:01 Chlordiazepoxide HCl (Librium -) 25 mg PO Q4H PRN PRN Reason: WITHDRAWAL(CONT SUBST) Stop: 08/08/17 19:07 Last Admin: 08/06/17 01:41 Dose: 25 mg Chlorhexidine Gluconate (Hibiclens For Decolonization -) 1 applic TP HS [facility] Last Admin: 08/05/17 22:40 Dose: 1 applic Folic Acid (Folic Acid -) 1 mg PO DAILY [facility] Last Admin: 08/06/17 09:09 Dose: 1 mg Heparin Sodium (Porcine) (Heparin -) 5,000 unit SQ TID [facility] Last Admin: 08/06/17 05:09 Dose: 5,000 unit Sodium Chloride (Normal Saline -) 1,000 mls @ 60 mls/hr IV ASDIR [facility] Last Admin: 08/06/17 05:11 Dose: 60 mls/hr Insulin Aspart (Novolog Vial Sliding Scale -) 1 vial SQ ACHS [facility] PRN Reason: Protocol Multivitamins/Minerals/Vitamin C (Tab-A-Vit -) 1 tab PO DAILY [facility] Last Admin: 08/06/17 09:09 Dose: 1 tab Mupirocin (Bactroban Ointment (For Decolonization) -) 1 applic NS BID [facility] Stop: 08/10/17 21:59 Last Admin: 08/06/17 09:13 Dose: 1 applic Thiamine HCl (Vitamin B1 -) 100 mg PO DAILY [facility] Last Admin: 08/06/17 09:09 Dose: 100 mg ASSESSMENT AND PLAN: Alcohol Intoxication/Abuse Elevated LFTs likely Alcoholic Hepatitis Lactic Acidosis Hypertensive Urgency Depression/Anxiety - IVF - trend LFTs, lactate - RUQ ultrasound - echocardiogram - BP control - librium protocol - vitamins repleted - DVT prophylaxis - continue ICU monitoring critical care time spent in reviewing chart, evaluating patient and formulating plan 35 min
--- NOTE | 2017-08-06 14:03 | EKG ---
Test Reason : Blood Pressure : / mmHG Vent. Rate : 129 BPM Atrial Rate : 129 BPM P-R Int : 124 ms QRS Dur : 074 ms QT Int : 320 ms P-R-T Axes : 057 -04 045 degrees QTc Int : 468 ms SINUS TACHYCARDIA NONSPECIFIC ST AND T WAVE ABNORMALITY WHEN COMPARED WITH ECG OF 05-AUG-2017 12:06, NO SIGNIFICANT CHANGE WAS FOUND Confirmed by WALI GRANDA MD ([id number] on 08/06/2017 2:03:06 PM Referred By: DR VALDEZ Confirmed By:WALI GRANDA MD
--- NOTE | 2017-08-06 14:24 | PN ---
Physical Exam: SUBJECTIVE: Patient seen and examined in ICU. He is awake, complaints of anxiety and RUQ tenderness. Denies nausea, vomiting, hallucinations. He states he took an over the counter sleep pill but cannot remember the name OBJECTIVE: Vital Signs Period Temp Pulse Resp BP Sys/[place] Pulse Ox Last 24 Hr 97.8 F-99.4 F 80-132 15-22 126-189/67-116 95-98 Pe Neuro: alert, awake, cn 2-12intact Pulm: CTAB CV: s1 s2 tachycardia no mrg Abd: RUQ tenderness, abd soft + bs Ext: warm, no le edema CBCD WBC 3.5 K/mm3 (4.0-10.0) L D 08/06/17 04:30 RBC 5.07 M/mm3 (4.00-5.60) 08/06/17 04:30 Hgb 14.5 GM/dL (11.7-16.9) 08/06/17 04:30 Hct 42.3 % (35.4-49) 08/06/17 04:30 MCV 83.5 fl (80-96) 08/06/17 04:30 MCHC 34.2 g/dl (32.0-35.9) 08/06/17 04:30 RDW 14.0 % (11.9-15.9) 08/06/17 04:30 Plt Count 229 K/MM3 (134-434) D 08/06/17 04:30 MPV 9.7 fl (7.5-11.1) 08/06/17 04:30 CMP Sodium 137 mmol/L (136-145) 08/06/17 04:30 Potassium 3.8 mmol/L (3.5-5.1) 08/06/17 04:30 Chloride 99 mmol/L (98-107) 08/06/17 04:30 Carbon Dioxide 28 mmol/L (21-32) D 08/06/17 04:30 Anion Gap 10 (8-16) 08/06/17 04:30 BUN 18 mg/dL (7-18) 08/06/17 04:30 Creatinine 0.8 mg/dL (0.7-1.3) 08/06/17 04:30 Creat Clearance w eGFR > 60 (>60) 08/06/17 04:30 Calcium 8.2 mg/dL (8.5-10.1) L 08/06/17 04:30 Total Bilirubin 0.8 mg/dL (0.2-1.0) 08/06/17 04:30 AST 733 U/L (15-37) H 08/06/17 04:30 ALT 1139 U/L (12-78) H 08/06/17 04:30 Alkaline Phosphatase 129 U/L (45-117) H 08/06/17 04:30 Total Protein 7.0 g/dl (6.4-8.2) 08/06/17 04:30 Albumin 3.8 g/dl (3.4-5.0) 08/06/17 04:30 08/06/17 08/06/17 08/06/17 04:30 04:30 09:50 Lactic Acid 6.9 H* Phosphorus 2.5 Magnesium 2.3 Creatine Kinase 541 H Creatine Kinase Index 0.6 CK-MB (CK-2) 3.246 Troponin I 0.08 H Active Medications Generic Name Dose Route Start Last Admin Trade Name Freq PRN Reason Stop Dose Admin Amlodipine Besylate 10 mg 08/07/17 10:00 Norvasc - PO DAILY [facility] Chlordiazepoxide HCl 50 mg 08/05/17 23:00 08/06/17 11:06 Librium - PO 08/06/17 17:01 50 mg [id number] [facility] Administration Chlordiazepoxide HCl 25 mg 08/06/17 23:00 Librium - PO 08/07/17 17:01 [id number] [facility] Chlordiazepoxide HCl 15 mg 08/07/17 23:00 Librium - PO 08/08/17 17:01 [id number] [facility] Chlordiazepoxide HCl 25 mg 08/05/17 20:36 08/06/17 01:41 Librium - PO 08/08/17 19:07 25 mg Q4H PRN Administration WITHDRAWAL(CONT SUBST) Chlorhexidine Gluconate 1 applic 08/05/17 22:00 08/05/17 22:40 Hibiclens For Decolonization - TP 1 applic HS [facility] Administration Folic Acid 1 mg 08/06/17 10:00 08/06/17 09:09 Folic Acid - PO 1 mg DAILY [facility] Administration Heparin Sodium (Porcine) 5,000 unit 08/05/17 22:00 08/06/17 13:31 Heparin - SQ 5,000 unit TID [facility] Administration Sodium Chloride 1,000 mls @ 60 mls/hr 08/06/17 05:06 08/06/17 05:11 Normal Saline - IV 60 mls/hr ASDIR [facility] Administration Insulin Aspart 1 vial 08/06/17 16:30 Novolog Vial Sliding Scale - SQ ACHS [facility] Protocol Multivitamins/Minerals/Vitamin C 1 tab 08/06/17 10:00 08/06/17 09:09 Tab-A-Vit - PO 1 tab DAILY [facility] Administration Mupirocin 1 applic 08/05/17 22:00 08/06/17 09:13 Bactroban Ointment (For Decolonization) - NS 08/10/17 21:59 1 applic BID [facility] Administration Thiamine HCl 100 mg 08/06/17 10:00 08/06/17 09:09 Vitamin B1 - PO 100 mg DAILY [facility] Administration Assessment: 47 year old male with HTN, h/o ETOH abuse who presented to [place] today epigastric pain and vomiting, found to have profound LFT elevation and transferred to [facility] ICU. Plan: 1. Transaminitis - Likely due to alcoholic hepatits, with normal INR -Acetaminophen and salicylate levels negative, hep panel noted - U tox uncollected - Continue serial LFT's q4, levels are down trending - RUQ US ordered - Monitor for hypoglycemia 2. Lactic acidosis - Due to liver injury? vs other etiology - RUQ US pending, cxr neg - Changed fluids to 1/2 ns @100cc/hr - Recheck lactate @ 1600 3. Hypertensive Urgency - Given labetaolol 10 IVP - Continue amodipine 10mg daily - Send hgb a1c - Continue BP tend, start standing labetaolol as needed 4. Elevated trop - Less likely ACS - Repeat down, will continue to trend 5. ETOH abuse - Continue librium detox - Folic acid daily - Thiamine daily 6. Anxiety - Resume lexapro - Hold cymbalta in setting of elevated LFT's 7. Metabolic acidosis - In setting of lactic acidosis - Gap closed 8. Depression/anxiety - Resume lexpro home dose - Hold cymbalta for now Visit type - Emergency Visit Emergency Visit: Yes ED Registration Date: 08/05/17 Care time: The patient presented to the Emergency Department on the above date and was hospitalized for further evaluation of their emergent condition. - New Patient This patient is new to me today: Yes Date on this admission: 08/07/17 - Critical Care Critical Care patient: No
--- NOTE | 2017-08-06 14:50 | CONSULT ---
Consultation: REQUESTING PROVIDER: CONSULT REQUEST: We have been asked to medically evaluate this patient for ICU care for alcoholic intoxication with hepatitis and lactic acidosis. HISTORY OF PRESENT ILLNESS: Pt is a 47 M with PMH EtOH abuse and several hospital visits who presented to ED heavily intoxicated w/ DOMONIQUE 343. Pt was given Ativan and Haldol for w/drawal and placed on Librium. He received vitamin supplements and fluids in ED. Pt has had a down trending LA, which has risen again. Labs also significant for transaminitis. Currently, pt admits to some RUQ pain on palpation, and states he feels depressed. Pt is currently afebrile, tachycardic & hypertensive, alert, and in NAD. REVIEW OF SYSTEMS: CONSTITUTIONAL: Absent: fever, chills, diaphoresis, generalized weakness, malaise, loss of appetite, weight change HEENT: Absent: rhinorrhea, nasal congestion, throat pain, throat swelling, difficulty swallowing, mouth swelling, ear pain, eye pain, visual changes CARDIOVASCULAR: Absent: chest pain, syncope, palpitations, irregular heart rate, lightheadedness , peripheral edema RESPIRATORY: Absent: cough, shortness of breath, dyspnea with exertion, orthopnea, wheezing, stridor, hemoptysis GASTROINTESTINAL:abdominal pain Absent: , abdominal distension, nausea, vomiting, diarrhea, constipation, melena , hematochezia GENITOURINARY: Absent: dysuria, frequency, urgency, hesitancy, hematuria, flank pain, genital pain MUSCULOSKELETAL: Absent: myalgia, arthralgia, joint swelling, back pain, neck pain SKIN: Absent: rash, itching, pallor HEMATOLOGIC/IMMUNOLOGIC: Absent: easy bleeding, easy bruising, lymphadenopathy, frequent infections ENDOCRINE: Absent: unexplained weight gain, unexplained weight loss, heat intolerance, cold intolerance NEUROLOGIC: Absent: headache, focal weakness or paresthesias, dizziness, unsteady gait, seizure, mental status changes, bladder or bowel incontinence PSYCHIATRIC: anxiety, depression Absent: , suicidal or homicidal ideation, hallucinations. PHYSICAL EXAMINATION Vital Signs - 24 hr 08/05/17 08/05/17 08/05/17 15:00 16:59 17:29 Temperature 98.7 F 97.8 F Pulse Rate Pulse Rate [ 99 H 115 H 114 H Left Apical] Respiratory 16 20 20 Rate Blood Pressure Blood Pressure 142/77 145/75 156/95 [Right Arm] O2 Sat by Pulse 98 98 96 Oximetry (%) 08/05/17 08/05/17 08/05/17 18:15 19:45 20:30 Temperature 98.1 F 98.6 F 99.4 F Pulse Rate 128 H 123 H 132 H Pulse Rate [ Left Apical] Respiratory 20 22 21 Rate Blood Pressure 148/69 126/67 166/102 Blood Pressure [Right Arm] O2 Sat by Pulse 95 Oximetry (%) 08/05/17 08/05/17 08/05/17 21:00 22:00 23:00 Temperature 99 F Pulse Rate 132 H 126 H 115 H Pulse Rate [ Left Apical] Respiratory 22 20 22 Rate Blood Pressure 154/88 178/106 156/110 Blood Pressure [Right Arm] O2 Sat by Pulse Oximetry (%) 08/06/17 08/06/17 08/06/17 00:00 00:21 02:00 Temperature 98.4 F Pulse Rate 98 H 111 H 122 H Pulse Rate [ Left Apical] Respiratory 18 22 20 Rate Blood Pressure 164/101 181/103 161/92 Blood Pressure [Right Arm] O2 Sat by Pulse Oximetry (%) 08/06/17 08/06/17 08/06/17 03:00 04:00 05:00 Temperature Pulse Rate 109 H 114 H 110 H Pulse Rate [ Left Apical] Respiratory 17 16 15 Rate Blood Pressure 169/102 183/104 169/107 Blood Pressure [Right Arm] O2 Sat by Pulse Oximetry (%) 08/06/17 08/06/17 08/06/17 06:00 07:00 08:00 Temperature 98.6 F Pulse Rate 80 99 H 104 H Pulse Rate [ Left Apical] Respiratory 16 18 20 Rate Blood Pressure 189/108 159/116 168/107 Blood Pressure [Right Arm] O2 Sat by Pulse Oximetry (%) 08/06/17 08/06/17 08/06/17 09:00 10:00 12:00 Temperature 98.8 F Pulse Rate 118 H 106 H Pulse Rate [ Left Apical] Respiratory 18 21 Rate Blood Pressure 182/113 171/99 Blood Pressure [Right Arm] O2 Sat by Pulse 95 Oximetry (%) GENERAL: somnolent but rousable, alert, and fully oriented, in no acute distress. HEAD: Normal with no signs of trauma. EYES: Pupils equal, round and reactive to light, extraocular movements intact, sclera anicteric, conjunctiva clear. No lid lag. EARS, NOSE, THROAT: oropharynx clear without exudates. Moist mucous membranes. equal palatal elevation. No tongue deviation. NECK: Normal range of motion, supple without lymphadenopathy, JVD, or masses. LUNGS: Breath sounds equal, clear to auscultation bilaterally. No wheezes, and no crackles. No accessory muscle use. HEART: Regular rhythm tachycardic, normal S1 and S2 3/6 syst murmur, rub or gallop. ABDOMEN: Soft, tender to palpation RUQ, not distended, normoactive bowel sounds , no guarding, no rebound, no masses. No hepatomegaly or splenomegaly. MUSCULOSKELETAL: Normal range of motion at all joints. No bony deformities or tenderness. No CVA tenderness. UPPER EXTREMITIES: 2+ pulses, warm, well-perfused. No cyanosis. No clubbing. Cap refill <2 seconds. No peripheral edema. LOWER EXTREMITIES: 2+ pulses, warm, well-perfused. No calf tenderness. No peripheral edema. NEUROLOGICAL: Cranial nerves II-XII intact. Normal speech. Normal gait. PSYCHIATRIC: Cooperative. Good eye contact. Pt admits to some depression. SKIN: Warm, dry, normal turgor, no rashes or lesions noted. Laboratory Results - last 24 hr 08/05/17 08/05/17 08/05/17 14:00 15:00 15:00 WBC RBC Hgb Hct MCV MCH MCHC RDW Plt Count MPV Neutrophils % Lymphocytes % Monocytes % Eosinophils % Basophils % PT with INR INR PTT (Actin FS) Sodium Potassium Chloride Carbon Dioxide Anion Gap BUN Creatinine Creat Clearance w eGFR Random Glucose Serum Osmolality 364 H Lactic Acid 5.0 H* Calcium Phosphorus Magnesium Total Bilirubin Direct Bilirubin AST ALT Alkaline Phosphatase Creatine Kinase Creatine Kinase Index CK-MB (CK-2) Troponin I Total Protein Albumin Cholesterol Salicylates Opiates Screen Methadone Screen Acetaminophen Barbiturate Screen Phencyclidine Screen Ur Amphetamines Screen MDMA (Ecstasy) Screen Benzodiazepines Screen Cocaine Screen U Marijuana (THC) Screen Alcohol, Quantitative 343.3 H* Acetone, Qual Hepatitis A IgM Ab Hep Bs Antigen Hep Bs Antibody, Quant Hep B Core IgM Ab Hep B Core Ab Interpret Hepatitis C Ab (EIA) 08/05/17 08/05/17 08/05/17 15:00 15:00 15:00 WBC RBC Hgb Hct MCV MCH MCHC RDW Plt Count MPV Neutrophils % Lymphocytes % Monocytes % Eosinophils % Basophils % PT with INR INR PTT (Actin FS) Sodium Potassium Chloride Carbon Dioxide Anion Gap BUN Creatinine Creat Clearance w eGFR Random Glucose Serum Osmolality Lactic Acid Calcium Phosphorus Magnesium Total Bilirubin Direct Bilirubin AST ALT Alkaline Phosphatase Creatine Kinase Creatine Kinase Index CK-MB (CK-2) Troponin I Total Protein Albumin Cholesterol Salicylates < 4.0 Opiates Screen Methadone Screen Acetaminophen < 2.000 L Barbiturate Screen Phencyclidine Screen Ur Amphetamines Screen MDMA (Ecstasy) Screen Benzodiazepines Screen Cocaine Screen U Marijuana (THC) Screen Alcohol, Quantitative Acetone, Qual Negative Hepatitis A IgM Ab Hep Bs Antigen Hep Bs Antibody, Quant Hep B Core IgM Ab Hep B Core Ab Interpret Hepatitis C Ab (EIA) 08/05/17 08/05/17 08/05/17 15:00 15:00 19:52 WBC RBC Hgb Hct MCV MCH MCHC RDW Plt Count MPV Neutrophils % Lymphocytes % Monocytes % Eosinophils % Basophils % PT with INR 13.6 H INR 1.22 PTT (Actin FS) 48.2 H D Sodium Potassium Chloride Carbon Dioxide Anion Gap BUN Creatinine Creat Clearance w eGFR Random Glucose Serum Osmolality Lactic Acid Calcium Phosphorus Magnesium Total Bilirubin Direct Bilirubin AST ALT Alkaline Phosphatase Creatine Kinase Creatine Kinase Index CK-MB (CK-2) Troponin I Total Protein Albumin Cholesterol 155 Salicylates Opiates Screen Methadone Screen Acetaminophen Barbiturate Screen Phencyclidine Screen Ur Amphetamines Screen MDMA (Ecstasy) Screen Benzodiazepines Screen Cocaine Screen U Marijuana (THC) Screen Alcohol, Quantitative Acetone, Qual Hepatitis A IgM Ab Negative Hep Bs Antigen Negative Hep Bs Antibody, Quant 3.4 L Hep B Core IgM Ab Negative Hep B Core Ab Interpret Negative Hepatitis C Ab (EIA) 0.2 08/05/17 08/05/17 08/05/17 19:52 19:52 19:52 WBC RBC Hgb Hct MCV MCH MCHC RDW Plt Count MPV Neutrophils % Lymphocytes % Monocytes % Eosinophils % Basophils % PT with INR 13.20 H INR 1.17 H PTT (Actin FS) Sodium Potassium Chloride Carbon Dioxide Anion Gap BUN Creatinine Creat Clearance w eGFR Random Glucose Serum Osmolality Lactic Acid Calcium Phosphorus Magnesium Total Bilirubin 0.6 D Direct Bilirubin 0.2 AST 1337 H ALT 1401 H D Alkaline Phosphatase 117 D Creatine Kinase Creatine Kinase Index CK-MB (CK-2) Troponin I Total Protein 6.9 Albumin Cancelled 3.7 Cholesterol Salicylates Opiates Screen Methadone Screen Acetaminophen Barbiturate Screen Phencyclidine Screen Ur Amphetamines Screen MDMA (Ecstasy) Screen Benzodiazepines Screen Cocaine Screen U Marijuana (THC) Screen Alcohol, Quantitative Acetone, Qual Hepatitis A IgM Ab Hep Bs Antigen Hep Bs Antibody, Quant Hep B Core IgM Ab Hep B Core Ab Interpret Hepatitis C Ab (EIA) 08/05/17 08/05/17 08/05/17 21:00 21:00 21:00 WBC RBC Hgb Hct MCV MCH MCHC RDW Plt Count MPV Neutrophils % Lymphocytes % Monocytes % Eosinophils % Basophils % PT with INR INR PTT (Actin FS) Sodium 135 L Potassium 3.9 Chloride 99 Carbon Dioxide 22 D Anion Gap 14 BUN 17 D Creatinine 0.9 D Creat Clearance w eGFR Random Glucose 192 H D Serum Osmolality Lactic Acid 3.1 H* Calcium 7.7 L Phosphorus Magnesium Total Bilirubin 0.7 Direct Bilirubin 0.2 AST 1189 H ALT 1385 H Alkaline Phosphatase 135 H Creatine Kinase Creatine Kinase Index CK-MB (CK-2) Troponin I 0.09 H D Total Protein 6.9 Albumin 3.5 Cholesterol Salicylates Opiates Screen Negative Methadone Screen Negative Acetaminophen Barbiturate Screen Negative Phencyclidine Screen Negative Ur Amphetamines Screen Negative MDMA (Ecstasy) Screen Negative Benzodiazepines Screen Negative Cocaine Screen Negative U Marijuana (THC) Screen Negative Alcohol, Quantitative Acetone, Qual Hepatitis A IgM Ab Hep Bs Antigen Hep Bs Antibody, Quant Hep B Core IgM Ab Hep B Core Ab Interpret Hepatitis C Ab (EIA) 08/06/17 08/06/17 08/06/17 04:30 04:30 04:30 WBC 3.5 L D RBC 5.07 Hgb 14.5 Hct 42.3 MCV 83.5 MCH 28.5 MCHC 34.2 RDW 14.0 Plt Count 229 D MPV 9.7 Neutrophils % 86.2 H Lymphocytes % 12.3 D Monocytes % 1.1 L D Eosinophils % 0.0 D Basophils % 0.4 PT with INR INR PTT (Actin FS) Sodium 137 Potassium 3.8 Chloride 99 Carbon Dioxide 28 D Anion Gap 10 BUN 18 Creatinine 0.8 Creat Clearance w eGFR > 60 Random Glucose 211 H Serum Osmolality Lactic Acid Calcium 8.2 L Phosphorus 2.5 Magnesium 2.3 Total Bilirubin 0.8 0.8 Direct Bilirubin 0.3 H D AST 733 H D 733 H ALT 1140 H 1139 H Alkaline Phosphatase 131 H 129 H Creatine Kinase 541 H Creatine Kinase Index 0.6 CK-MB (CK-2) 3.246 Troponin I 0.08 H Total Protein 6.8 7.0 Albumin 3.7 3.8 Cholesterol Salicylates Opiates Screen Methadone Screen Acetaminophen Barbiturate Screen Phencyclidine Screen Ur Amphetamines Screen MDMA (Ecstasy) Screen Benzodiazepines Screen Cocaine Screen U Marijuana (THC) Screen Alcohol, Quantitative Acetone, Qual Hepatitis A IgM Ab Hep Bs Antigen Hep Bs Antibody, Quant Hep B Core IgM Ab Hep B Core Ab Interpret Hepatitis C Ab (EIA) 08/06/17 08/06/17 08/06/17 04:30 04:30 08:00 WBC RBC Hgb Hct MCV MCH MCHC RDW Plt Count MPV Neutrophils % Lymphocytes % Monocytes % Eosinophils % Basophils % PT with INR 11.70 INR 1.04 PTT (Actin FS) Sodium Potassium Chloride Carbon Dioxide Anion Gap BUN Creatinine Creat Clearance w eGFR Random Glucose Serum Osmolality Lactic Acid 2.1 H* Calcium Phosphorus Magnesium Total Bilirubin Direct Bilirubin AST ALT Alkaline Phosphatase Creatine Kinase Creatine Kinase Index CK-MB (CK-2) Troponin I Total Protein Albumin Cholesterol Salicylates Opiates Screen Methadone Screen Acetaminophen Barbiturate Screen Phencyclidine Screen Ur Amphetamines Screen MDMA (Ecstasy) Screen Benzodiazepines Screen Cocaine Screen U Marijuana (THC) Screen Alcohol, Quantitative < 5.0 Acetone, Qual Hepatitis A IgM Ab Hep Bs Antigen Hep Bs Antibody, Quant Hep B Core IgM Ab Hep B Core Ab Interpret Hepatitis C Ab (EIA) 08/06/17 08/06/17 08:20 09:50 WBC RBC Hgb Hct MCV MCH MCHC RDW Plt Count MPV Neutrophils % Lymphocytes % Monocytes % Eosinophils % Basophils % PT with INR INR PTT (Actin FS) Sodium Potassium Chloride Carbon Dioxide Anion Gap BUN Creatinine Creat Clearance w eGFR Random Glucose Serum Osmolality Lactic Acid 6.9 H* Calcium Phosphorus Magnesium Total Bilirubin Direct Bilirubin AST ALT Alkaline Phosphatase Creatine Kinase Cancelled Creatine Kinase Index CK-MB (CK-2) Troponin I Cancelled Total Protein Albumin Cholesterol Salicylates Opiates Screen Methadone Screen Acetaminophen Barbiturate Screen Phencyclidine Screen Ur Amphetamines Screen MDMA (Ecstasy) Screen Benzodiazepines Screen Cocaine Screen U Marijuana (THC) Screen Alcohol, Quantitative Acetone, Qual Hepatitis A IgM Ab Hep Bs Antigen Hep Bs Antibody, Quant Hep B Core IgM Ab Hep B Core Ab Interpret Hepatitis C Ab (EIA) Active Medications Generic Name Dose Route Start Last Admin Trade Name Bernardq PRN Reason Stop Dose Admin Amlodipine Besylate 10 mg 08/07/17 10:00 Norvasc - PO DAILY SAAD Chlordiazepoxide HCl 50 mg 08/05/17 23:00 08/06/17 11:06 Librium - PO 08/06/17 17:01 50 mg [id number] SAAD Administration Chlordiazepoxide HCl 25 mg 08/06/17 23:00 Librium - PO 08/07/17 17:01 [id number] SAAD Chlordiazepoxide HCl 15 mg 08/07/17 23:00 Librium - PO 08/08/17 17:01 [id number] SAAD Chlordiazepoxide HCl 25 mg 08/05/17 20:36 08/06/17 01:41 Librium - PO 08/08/17 19:07 25 mg Q4H PRN Administration WITHDRAWAL(CONT SUBST) Chlorhexidine Gluconate 1 applic 08/05/17 22:00 08/05/17 22:40 Hibiclens For Decolonization - TP 1 applic HS SAAD Administration Folic Acid 1 mg 08/06/17 10:00 08/06/17 09:09 Folic Acid - PO 1 mg DAILY SAAD Administration Heparin Sodium (Porcine) 5,000 unit 08/05/17 22:00 08/06/17 13:31 Heparin - SQ 5,000 unit TID SAAD Administration Sodium Chloride 1,000 mls @ 60 mls/hr 08/06/17 05:06 08/06/17 05:11 Normal Saline - IV 60 mls/hr ASDIR SAAD Administration Insulin Aspart 1 vial 08/06/17 16:30 Novolog Vial Sliding Scale - SQ ACHS [facility] Protocol Multivitamins/Minerals/Vitamin C 1 tab 08/06/17 10:00 08/06/17 09:09 Tab-A-Vit - PO 1 tab DAILY SAAD Administration Mupirocin 1 applic 08/05/17 22:00 08/06/17 09:13 Bactroban Ointment (For Decolonization) - NS 08/10/17 21:59 1 applic BID SAAD Administration Thiamine HCl 100 mg 08/06/17 10:00 08/06/17 09:09 Vitamin B1 - PO 100 mg DAILY SAAD Administration ASSESSMENT/PLAN: Pt is a 47 M w/ PMH EtOH abuse with multiple hospital visits and HTN who presented to ED intoxicated. Pt is admitted to ICU for further management. #Intoxication -DOMONIQUE 343 on admission. Currently <5 -Pt given Ativan and Haldol for withdrawal. Librium protocol added. -Per GI, avoid oversedation -thiamine, folate given #Neuro -Pt somnolent and rousable -Pt not confused. Neuro exam unremarkable #GI -abdominal tenderness -transaminitis -coags wnl -lactic acidosis. trending -pt on fluid -abd U/S pending #Cardiovascular -HTN -Norvasc -unknown cardiac function in setting of presumably longstanding HTN. Echo pending #DM -ISS -A1C pending #Psych -Depression -Pastoral consult -resume Lexapro -Hold Cymbalta in setting of transaminitis #FEN -1/2 NS -lytes wnl -clears #PPX -Hep SubQ Larry Escobar MD PGY-1 ICU Dispo: We will continue to follow the patient. Thank you for this consultative opportunity. Visit type - Emergency Visit Emergency Visit: No - New Patient This patient is new to me today: Yes Date on this admission: 08/06/17 - Critical Care Critical Care patient: Yes Total Critical Care Time (in minutes): 40 Critical Care Statement: The care of this patient involved high complexity decision making to prevent further life threatening deterioration of the patient 's condition and/or to evaluate & treat vital organ system(s) failure or risk of failure.
[2017-08-06] MEDS ORDERED: LORazepam 2 MG/ML SDV VIAL IVPUSH ONE (15:15)
[2017-08-06] MEDS: ESCITALOPRAM OXALATE 10 MG TABLET (FP) PO SCH (16:34)
[2017-08-06] MEDS: SODIUM CHLORIDE 0.45% 1,000 ML IV SCH (16:35)
[2017-08-06] MEDS: INSULIN SLIDING SCALE (NOVOLOG) 1 VIAL SQ SCH ×2 (16:38→22:10)
[2017-08-06 20:00] LABS: ALBUMIN 3.5 g/dl (3.4-5.0); BILIRUBIN,DIRECT 0.2 mg/dL (0.0-0.2); BILIRUBIN,TOTAL 0.7 mg/dL (0.2-1.0); TOT PROT 6.7 g/dl (6.4-8.2)
[2017-08-06] MEDS ORDERED: IBUPROFEN 600 MG TABLET (FP) PO ONE (21:21)
[2017-08-06] MEDS: CHLORHEXIDINE GLUCONATE 4% CLEANSER FOR DECOLONIZATION TP SCH (22:10)
[2017-08-07] MEDS: chlordiazePOXIDE HCL 25 MG CAPSULE PO PRN (01:00)
[2017-08-07] MEDS: HEPARIN NA (PORCINE) 5,000 UNITS/ML 1ML VIAL SQ SCH (06:09)
[2017-08-07] MEDS: chlordiazePOXIDE HCL 25 MG CAPSULE PO SCH ×2 (06:09→09:53)
[2017-08-07] MEDS: INSULIN SLIDING SCALE (NOVOLOG) 1 VIAL SQ SCH (06:10)
[2017-08-07] MEDS: SODIUM CHLORIDE 0.45% 1,000 ML IV SCH (06:16)
[2017-08-07 06:38] LABS: BASOPHIL 0.4 % (0-2.0); EOSINOPHIL 0.4 % (0-4.5); MCH 28.8 pg (25.7-33.7); MCHC 34.3 g/dl (32.0-35.9); MEAN CELL VOLUME 84.1 fl (80-96); MEAN PLT VOLUME 10.4 fl (7.5-11.1); NEUTROPHILS 80.9 % (42.8-82.8); PLATELET COUNT 217 K/MM3 (134-434); RDW 14.1 % (11.9-15.9); WHITE BLOOD COUNT 6.2 K/mm3 (4.0-10.0)
[2017-08-07 06:58] LABS: ALBUMIN 3.6 g/dl (3.4-5.0); ANION GAP 6 (8-16); BILIRUBIN,TOTAL 1.1 mg/dL (0.2-1.0); CALCIUM 8.1 mg/dL (8.5-10.1); CO2 29 mmol/L (21-32); CREATININE 0.6 mg/dL (0.7-1.3); GLUCOSE,RANDOM 139 mg/dL (74-106); MAGNESIUM 2.2 mg/dL (1.8-2.4); PHOSPHOROUS 2.1 mg/dL (2.5-4.9); SGOT/AST 204 U/L (15-37); TOT PROT 6.6 g/dl (6.4-8.2)
[2017-08-07 06:59] LABS: ALK PHOS 111 U/L (45-117)
[2017-08-07 07:01] LABS: SGPT/ALT 678 U/L (12-78)
[2017-08-07] MEDS ORDERED: NAPH,MB-DB/K PH,MBDB POWDER PACKET PO ONE ×3 (08:09→10:00)
[2017-08-07] MEDS ORDERED: CALCIUM CARBONATE 650 MG TABLET PO SCH (08:15)
[2017-08-07] MEDS ORDERED: LORazepam 2 MG/ML SDV VIAL ONE (09:32)
[2017-08-07] MEDS: ESCITALOPRAM OXALATE 10 MG TABLET (FP) PO SCH (09:53)
[2017-08-07] MEDS: THIAMINE HCL 100 MG TABLET (FP) PO SCH (09:54)
[2017-08-07] MEDS: FOLIC ACID 1 MG TABLET (FP) PO SCH (09:54)
[2017-08-07] MEDS ORDERED: amLODIPine BESYLATE 10 MG TABLET (FP) PO SCH (10:00)
--- NOTE | 2017-08-07 10:00 | PN ---
Physical Exam: SUBJECTIVE: Patient seen and examined in ICU, he wants to leave, he is mad he didn't get his ultra sound. His abdominal pain is gone. OBJECTIVE: Vital Signs Period Temp Pulse Resp BP Sys/[place] Pulse Ox Last 24 Hr 98.4 F-98.8 F 88-118 15-21 141-182/84-113 96 Pe Neuro: alert, awake, cn 2-12intact Pulm: CTAB CV: s1 s2 tachycardia no mrg Abd: s nt nd + bs Ext: warm, no le edema CBCD WBC 6.2 K/mm3 (4.0-10.0) D 08/07/17 05:00 RBC 4.83 M/mm3 (4.00-5.60) 08/07/17 05:00 Hgb 13.9 GM/dL (11.7-16.9) 08/07/17 05:00 Hct 40.6 % (35.4-49) 08/07/17 05:00 MCV 84.1 fl (80-96) 08/07/17 05:00 MCHC 34.3 g/dl (32.0-35.9) 08/07/17 05:00 RDW 14.1 % (11.9-15.9) 08/07/17 05:00 Plt Count 217 K/MM3 (134-434) 08/07/17 05:00 MPV 10.4 fl (7.5-11.1) 08/07/17 05:00 CMP Sodium 136 mmol/L (136-145) 08/07/17 05:00 Potassium 3.4 mmol/L (3.5-5.1) L 08/07/17 05:00 Chloride 101 mmol/L (98-107) 08/07/17 05:00 Carbon Dioxide 29 mmol/L (21-32) 08/07/17 05:00 Anion Gap 6 (8-16) L 08/07/17 05:00 BUN 8 mg/dL (7-18) D 08/07/17 05:00 Creatinine 0.6 mg/dL (0.7-1.3) L D 08/07/17 05:00 Creat Clearance w eGFR > 60 (>60) 08/07/17 05:00 Calcium 8.1 mg/dL (8.5-10.1) L 08/07/17 05:00 Total Bilirubin 1.1 mg/dL (0.2-1.0) H D 08/07/17 05:00 AST 204 U/L (15-37) H D 08/07/17 05:00 ALT 678 U/L (12-78) H 08/07/17 05:00 Alkaline Phosphatase 111 U/L (45-117) 08/07/17 05:00 Total Protein 6.6 g/dl (6.4-8.2) 08/07/17 05:00 Albumin 3.6 g/dl (3.4-5.0) 08/07/17 05:00 08/07/17 08/07/17 05:00 08:52 Lactic Acid 0.8 Phosphorus 2.1 L Magnesium 2.2 Active Medications Generic Name Dose Route Start Last Admin Trade Name Freq PRN Reason Stop Dose Admin Amlodipine Besylate 10 mg 08/07/17 10:00 08/07/17 09:53 Norvasc - PO 10 mg DAILY SAAD Administration Calcium Carbonate 650 mg 08/07/17 08:15 Calcium Carbonate - PO DAILY SAAD Chlordiazepoxide HCl 25 mg 08/06/17 23:00 08/07/17 09:53 Librium - PO 08/07/17 17:01 25 mg [id number] SAAD Administration Chlordiazepoxide HCl 15 mg 08/07/17 23:00 Librium - PO 08/08/17 17:01 [id number] SAAD Chlordiazepoxide HCl 25 mg 08/05/17 20:36 08/07/17 01:00 Librium - PO 08/08/17 19:07 25 mg Q4H PRN Administration WITHDRAWAL(CONT SUBST) Chlorhexidine Gluconate 1 applic 08/05/17 22:00 08/06/17 22:10 Hibiclens For Decolonization - TP 1 applic HS SAAD Administration Escitalopram Oxalate 10 mg 08/06/17 15:00 08/07/17 09:53 Lexapro - PO 10 mg DAILY SAAD Administration Folic Acid 1 mg 08/06/17 10:00 08/07/17 09:54 Folic Acid - PO 1 mg DAILY SAAD Administration Heparin Sodium (Porcine) 5,000 unit 08/05/17 22:00 08/07/17 06:09 Heparin - SQ 5,000 unit TID SAAD Administration Hydralazine HCl 10 mg 08/07/17 09:54 Apresoline - PO 08/07/17 09:55 ONCE ONE Sodium Chloride 1,000 mls @ 100 mls/hr 08/06/17 14:45 08/07/17 06:16 1/2 Normal Saline IV 100 mls/hr ASDIR SAAD Administration Insulin Aspart 1 vial 08/06/17 16:30 08/07/17 06:10 Novolog Vial Sliding Scale - SQ Not Given ACHS [facility] Protocol Multivitamins/Minerals/Vitamin C 1 tab 08/06/17 10:00 08/06/17 09:09 Tab-A-Vit - PO 1 tab DAILY SAAD Administration Mupirocin 1 applic 08/05/17 22:00 08/06/17 21:27 Bactroban Ointment (For Decolonization) - NS 08/10/17 21:59 1 applic BID SAAD Administration Thiamine HCl 100 mg 08/06/17 10:00 08/07/17 09:54 Vitamin B1 - PO 100 mg DAILY SAAD Administration Assessment: 47 year old male with HTN, h/o ETOH abuse who presented to [place] today epigastric pain and vomiting, found to have profound LFT elevation and transferred to [facility] ICU. Plan: 1. Transaminitis - Likely due to alcoholic hepatits, with normal INR - LFT's down trending - RUQ US to be done today 2. Hypertensive Urgency - Elevated this AM, pt is aggravated +/- withdrawal - Give home dose norvasc 10mg daily - If persistently elevated give hydralazine 10mg x1 - Hgb a1c wnl 3. Lactic acidosis - Resolved - Stop fluids 4. Elevated trop - Less likely ACS - Repeat down trended 5. ETOH abuse - Continue librium detox - Folic acid daily - Thiamine daily 6. Anxiety - Resume lexapro - Hold cymbalta in setting of elevated LFT's 7. Metabolic acidosis - In setting of lactic acidosis - Gap closed 8. Depression/anxiety - Resume lexpro home dose - Hold cymbalta for now Visit type - Emergency Visit Emergency Visit: Yes ED Registration Date: 08/05/17 Care time: The patient presented to the Emergency Department on the above date and was hospitalized for further evaluation of their emergent condition. - New Patient This patient is new to me today: No - Critical Care Critical Care patient: No
[2017-08-07] MEDS ORDERED: POTASSIUM CHLORIDE ORAL LIQUID 20 MEQ/15 ML PO ONE (10:09)
[2017-08-07] MEDS ORDERED: hydrALAZINE HCL 10 MG TABLET PO ONE (10:15)
[2017-08-07 10:17] VITALS: PULSE 88; TEMP 98.7
--- NOTE | 2017-08-07 10:34 | PN ---
Progress Note, Physician History of Present Illness: Awake, alert. Not in distress. No events. Tells me he has to go back to work [employer]. Awaiting for US to be done. liver enzymes improving. 4 - Current Medication List Current Medications: Active Medications Amlodipine Besylate (Norvasc -) 10 mg PO DAILY [facility] Last Admin: 08/07/17 09:53 Dose: 10 mg Calcium Carbonate (Calcium Carbonate -) 650 mg PO DAILY [facility] Chlordiazepoxide HCl (Librium -) 25 mg PO [id number] [facility] Stop: 08/07/17 17:01 Last Admin: 08/07/17 09:53 Dose: 25 mg Chlordiazepoxide HCl (Librium -) 15 mg PO [id number] [facility] Stop: 08/08/17 17:01 Chlordiazepoxide HCl (Librium -) 25 mg PO Q4H PRN PRN Reason: WITHDRAWAL(CONT SUBST) Stop: 08/08/17 19:07 Last Admin: 08/07/17 01:00 Dose: 25 mg Chlorhexidine Gluconate (Hibiclens For Decolonization -) 1 applic TP HS [facility] Last Admin: 08/06/17 22:10 Dose: 1 applic Escitalopram Oxalate (Lexapro -) 10 mg PO DAILY [facility] Last Admin: 08/07/17 09:53 Dose: 10 mg Folic Acid (Folic Acid -) 1 mg PO DAILY [facility] Last Admin: 08/07/17 09:54 Dose: 1 mg Heparin Sodium (Porcine) (Heparin -) 5,000 unit SQ TID [facility] Last Admin: 08/07/17 06:09 Dose: 5,000 unit Insulin Aspart (Novolog Vial Sliding Scale -) 1 vial SQ ACHS [facility] PRN Reason: Protocol Last Admin: 08/07/17 06:10 Dose: Not Given Multivitamins/Minerals/Vitamin C (Tab-A-Vit -) 1 tab PO DAILY [facility] Last Admin: 08/06/17 09:09 Dose: 1 tab Mupirocin (Bactroban Ointment (For Decolonization) -) 1 applic NS BID [facility] Stop: 08/10/17 21:59 Last Admin: 08/06/17 21:27 Dose: 1 applic Thiamine HCl (Vitamin B1 -) 100 mg PO DAILY [facility] Last Admin: 08/07/17 09:54 Dose: 100 mg - Objective Vital Signs: Vital Signs Temperature 98.7 F 08/07/17 10:00 Pulse Rate 88 08/07/17 10:00 Respiratory Rate 15 08/07/17 10:00 Blood Pressure 156/104 08/07/17 10:00 O2 Sat by Pulse Oximetry (%) 96 08/06/17 19:45 Eyes: Yes: Conjunctiva Clear HENT: Yes: Atraumatic Neck: Yes: Supple Cardiovascular: Yes: Regular Rate and Rhythm Respiratory: Yes: Regular Gastrointestinal: Yes: Soft. No: Tenderness Neurological: Yes: Alert, Oriented Labs: CBC, BMP 08/07/17 05:00 08/07/17 05:00 INR, PTT INR 1.04 (0.82-1.09) 08/06/17 08:00 Laboratory Results - last 24 hr 08/05/17 08/05/17 08/06/17 17:07 19:52 04:30 WBC RBC Hgb Hct MCV MCH MCHC RDW Plt Count MPV Neutrophils % Lymphocytes % Monocytes % Eosinophils % Basophils % Sodium Potassium Chloride Carbon Dioxide Anion Gap BUN Creatinine Creat Clearance w eGFR POC Glucometer Random Glucose Hemoglobin A1c % Lactic Acid Calcium Phosphorus Magnesium Total Bilirubin 0.8 Direct Bilirubin 0.3 H D AST 733 H ALT 1139 H Alkaline Phosphatase 129 H Creatine Kinase 541 H Creatine Kinase Index 0.6 CK-MB (CK-2) 3.246 Troponin I 0.08 H Total Protein 7.0 Albumin 3.8 Cholesterol 155 Hep A IgM Ab Confirm Negative Hepatitis A Ab Total Positive H 08/06/17 08/06/17 08/06/17 09:50 16:32 16:50 WBC RBC Hgb Hct MCV MCH MCHC RDW Plt Count MPV Neutrophils % Lymphocytes % Monocytes % Eosinophils % Basophils % Sodium Potassium Chloride Carbon Dioxide Anion Gap BUN Creatinine Creat Clearance w eGFR POC Glucometer 155.76532 Random Glucose Hemoglobin A1c % Lactic Acid 6.9 H* 2.4 H* Calcium Phosphorus Magnesium Total Bilirubin Direct Bilirubin AST ALT Alkaline Phosphatase Creatine Kinase Creatine Kinase Index CK-MB (CK-2) Troponin I Total Protein Albumin Cholesterol Hep A IgM Ab Confirm Hepatitis A Ab Total 08/06/17 08/06/17 08/06/17 18:00 18:00 22:05 WBC RBC Hgb Hct MCV MCH MCHC RDW Plt Count MPV Neutrophils % Lymphocytes % Monocytes % Eosinophils % Basophils % Sodium Potassium Chloride Carbon Dioxide Anion Gap BUN Creatinine Creat Clearance w eGFR POC Glucometer 142.23700 Random Glucose Hemoglobin A1c % Lactic Acid 4.9 H* Calcium Phosphorus Magnesium Total Bilirubin 0.7 Direct Bilirubin 0.2 D AST 367 H D ALT 837 H D Alkaline Phosphatase 120 H Creatine Kinase Creatine Kinase Index CK-MB (CK-2) Troponin I Total Protein 6.7 Albumin 3.5 Cholesterol Hep A IgM Ab Confirm Hepatitis A Ab Total 08/07/17 08/07/17 08/07/17 05:00 05:00 05:00 WBC 6.2 D RBC 4.83 Hgb 13.9 Hct 40.6 MCV 84.1 MCH 28.8 MCHC 34.3 RDW 14.1 Plt Count 217 MPV 10.4 Neutrophils % 80.9 Lymphocytes % 11.5 Monocytes % 6.8 D Eosinophils % 0.4 D Basophils % 0.4 Sodium 136 Potassium 3.4 L Chloride 101 Carbon Dioxide 29 Anion Gap 6 L BUN 8 D Creatinine 0.6 L D Creat Clearance w eGFR > 60 POC Glucometer Random Glucose 139 H D Hemoglobin A1c % 6.0 Lactic Acid Calcium 8.1 L Phosphorus 2.1 L Magnesium 2.2 Total Bilirubin 1.1 H D Direct Bilirubin AST 204 H D ALT 678 H Alkaline Phosphatase 111 Creatine Kinase Creatine Kinase Index CK-MB (CK-2) Troponin I Total Protein 6.6 Albumin 3.6 Cholesterol Hep A IgM Ab Confirm Hepatitis A Ab Total 08/07/17 08:52 WBC RBC Hgb Hct MCV MCH MCHC RDW Plt Count MPV Neutrophils % Lymphocytes % Monocytes % Eosinophils % Basophils % Sodium Potassium Chloride Carbon Dioxide Anion Gap BUN Creatinine Creat Clearance w eGFR POC Glucometer Random Glucose Hemoglobin A1c % Lactic Acid 0.8 Calcium Phosphorus Magnesium Total Bilirubin Direct Bilirubin AST ALT Alkaline Phosphatase Creatine Kinase Creatine Kinase Index CK-MB (CK-2) Troponin I Total Protein Albumin Cholesterol Hep A IgM Ab Confirm Hepatitis A Ab Total - ....Imaging Ultrasound: Pending Problem List - Problems (1) Hepatitis Code(s): K75.9 - INFLAMMATORY LIVER DISEASE, UNSPECIFIED (2) Alcohol abuse Code(s): F10.10 - ALCOHOL ABUSE, UNCOMPLICATED Assessment/Plan US abdomen Diet as tomerated
[2017-08-07 12:46] VITALS: BP 159/115
--- NOTE | 2017-08-07 12:46 | PN ---
Progress Note (short form) - Note Progress Note: Went to see pt this am. Pt was anxious to leave. I emphasized the importance of his medical care making sure to mention his abnormal blood tests and pending studies, as well as his ICU status. Nevertheless, the patient elected to leave AMA. Risks were explained to him prior to leaving. Pt was given AMA form.
--- NOTE | 2017-08-07 14:43 | PN ---
Teaching Attending Note Name of Resident: Larry Escobar ATTENDING PHYSICIAN STATEMENT I saw and evaluated the patient. I reviewed the resident's note and discussed the case with the resident. I agree with the resident's findings and plan as documented. SUBJECTIVE: Patient seen and examined in the ICU. Awake and alert. Reports feels overall better. Denies nausea or vomiting or abdominal pain. OBJECTIVE: Intake & Output 08/04/17 08/05/17 08/06/17 08/07/17 23:59 23:59 23:59 23:59 Intake Total 1550 3020 1200 Output Total 1000 2500 800 Balance 550 520 400 Weight 190 lb 3 oz 187 lb 1 oz 185 lb 4 oz Last Vital Signs Temp Pulse Resp BP Pulse Ox 98.7 F 88 15 159/115 96 08/07/17 10:00 08/07/17 10:00 08/07/17 10:00 08/07/17 12:00 08/06/17 19:45 Gen: Awake and alert Heart: S1S2 Lung: decreased breath sounds at the bases Abd: non-tender, (+) BS Ext: no edema Laboratory Results - last 24 hr 08/05/17 08/05/17 08/06/17 17:07 19:52 16:32 WBC RBC Hgb Hct MCV MCH MCHC RDW Plt Count MPV Neutrophils % Lymphocytes % Monocytes % Eosinophils % Basophils % Sodium Potassium Chloride Carbon Dioxide Anion Gap BUN Creatinine Creat Clearance w eGFR POC Glucometer 155.33698 Random Glucose Hemoglobin A1c % Lactic Acid Calcium Phosphorus Magnesium Total Bilirubin Direct Bilirubin AST ALT Alkaline Phosphatase Total Protein Albumin Cholesterol 155 Hep A IgM Ab Confirm Negative Hepatitis A Ab Total Positive H 08/06/17 08/06/17 08/06/17 16:50 18:00 18:00 WBC RBC Hgb Hct MCV MCH MCHC RDW Plt Count MPV Neutrophils % Lymphocytes % Monocytes % Eosinophils % Basophils % Sodium Potassium Chloride Carbon Dioxide Anion Gap BUN Creatinine Creat Clearance w eGFR POC Glucometer Random Glucose Hemoglobin A1c % Lactic Acid 2.4 H* 4.9 H* Calcium Phosphorus Magnesium Total Bilirubin 0.7 Direct Bilirubin 0.2 D AST 367 H D ALT 837 H D Alkaline Phosphatase 120 H Total Protein 6.7 Albumin 3.5 Cholesterol Hep A IgM Ab Confirm Hepatitis A Ab Total 08/06/17 08/07/17 08/07/17 22:05 05:00 05:00 WBC 6.2 D RBC 4.83 Hgb 13.9 Hct 40.6 MCV 84.1 MCH 28.8 MCHC 34.3 RDW 14.1 Plt Count 217 MPV 10.4 Neutrophils % 80.9 Lymphocytes % 11.5 Monocytes % 6.8 D Eosinophils % 0.4 D Basophils % 0.4 Sodium 136 Potassium 3.4 L Chloride 101 Carbon Dioxide 29 Anion Gap 6 L BUN 8 D Creatinine 0.6 L D Creat Clearance w eGFR > 60 POC Glucometer 142.46934 Random Glucose 139 H D Hemoglobin A1c % Lactic Acid Calcium 8.1 L Phosphorus 2.1 L Magnesium 2.2 Total Bilirubin 1.1 H D Direct Bilirubin AST 204 H D ALT 678 H Alkaline Phosphatase 111 Total Protein 6.6 Albumin 3.6 Cholesterol Hep A IgM Ab Confirm Hepatitis A Ab Total 08/07/17 08/07/17 08/07/17 05:00 05:35 08:52 WBC RBC Hgb Hct MCV MCH MCHC RDW Plt Count MPV Neutrophils % Lymphocytes % Monocytes % Eosinophils % Basophils % Sodium Potassium Chloride Carbon Dioxide Anion Gap BUN Creatinine Creat Clearance w eGFR POC Glucometer 140.79661 Random Glucose Hemoglobin A1c % 6.0 Lactic Acid 0.8 Calcium Phosphorus Magnesium Total Bilirubin Direct Bilirubin AST ALT Alkaline Phosphatase Total Protein Albumin Cholesterol Hep A IgM Ab Confirm Hepatitis A Ab Total ASSESSMENT AND PLAN: Alcohol Intoxication/Abuse Elevated LFTs likely Alcoholic Hepatitis Lactic Acidosis Hypertensive Urgency Depression/Anxiety - IVF - trend LFTs, lactate - BP control - librium protocol - vitamins repleted - DVT prophylaxis - Floor Dr Brooke
[2017-08-07] MEDS ORDERED: chlordiazePOXIDE 5 MG CAPSULE PO SCH (23:00)
--- NOTE | 2017-08-08 07:38 | DS ---
Physical Exam: SUBJECTIVE: Patient seen and examined. Anxious to leave, aware of risk, signed out AMA OBJECTIVE: Vital Signs Period Temp Pulse Resp BP Sys/[place] Pulse Ox Last 24 Hr 98.7 F 88-116 15-15 153-159/99-115 See 08/07/17 progress note Laboratory Results - last 24 hr 08/07/17 08/07/17 08/07/17 05:00 05:35 08:52 POC Glucometer 140.30784 Hemoglobin A1c % 6.0 Lactic Acid 0.8 HOSPITAL COURSE: Date of Admission:08/05/17 Date of Discharge: 08/08/17 Minutes to complete discharge: 37 Discharge Summary Reason For Visit: ACUTE HEPATITIS; INTOXICATION Hospital Course: Initial Hospital Course: Briefly, this 47 year old male with a past medical history of chronic alcohol abuse and HTN presented to the ED with epigastric pain, burning chest pain x 1 week, and vomiting. He was given haldol and ativan for agitation and withdrawal symptoms. He drinks beer, and Bacardi rum. Notable bloodwork in the ED: transaminases >1200 ALT and 1800 AST, with near normal bili, ALP. NOrmal BUN, Cr, PT/INR Patient was started on Acetycystine in the ED- he developed uticaria/hives, infusion was d/c he was given benadryl and solumederol. Subsequent Hospital Course/DC summary: Assessment: 47 year old male with HTN, h/o ETOH abuse who presented to [facility] today epigastric pain and vomiting, found to have profound LFT elevation and transferred to [facility] ICU. Plan: 1. Transaminitis - Likely due to alcoholic hepatits, with normal INR - LFT's down trending - RUQ US not done- Pt left AMA 2. Hypertensive Urgency - Elevated this AM, pt is aggravated +/- withdrawal - Given norvasc 10mg daily - Prior to AMA sign out, pt given hydralazine 10mg x1, pt did not stay for BP recheck, he was instructed to followup with his PCP for BP management and continued evaluation - Hgb a1c wnl 3. Lactic acidosis - Resolved w/ fluids 4. Elevated trop - Less likely ACS - Repeat down trended 5. ETOH abuse - Stated librium detox did not finish - Folic acid daily - Thiamine daily 6. Anxiety - Resume lexapro - Hold cymbalta in setting of elevated LFT's 7. Metabolic acidosis - In setting of lactic acidosis - Gap closed 8. Depression/anxiety - Resume lexpro home dose - Hold cymbalta for now Dispo: - Pt signed out AMA, explained importance of staying to monitor liver enzymes, BP with risks of possible organ damage, stroke, explained to patient along with abstaining from alcohol. Pt understood without further question, he was made aware to return to the ED for any new, persistent, or worsening symptoms. Condition: Guarded - Instructions Diet, Activity, Other Instructions: He should follow-up at [facility] for detox. Avoid heavy alcohol intake. Return for any problems or concerns, follow up with her primary care doctor Disposition: AGAINST MEDICAL ADVICE - Home Medications Comprehensive Discharge Medication List: Ambulatory Orders Cetirizine HCl [Zyrtec -] 10 mg PO DAILY 02/13/17 Duloxetine HCl 60 mg PO ASDIR 02/13/17 Escitalopram Oxalate [Lexapro -] 10 mg PO DAILY 02/13/17 Amlodipine Besylate [Norvasc -] 10 mg PO DAILY #30 tablet 02/17/17 Folic Acid - 1 mg PO DAILY tablet 02/17/17 This patient is new to me today: No Emergency Visit: Yes ED Registration Date: 08/05/17 Care time: The patient presented to the Emergency Department on the above date and was hospitalized for further evaluation of their emergent condition. Critical Care patient: No - Discharge Referral Referred to [facility] No
--- NOTE | 2017-08-08 10:08 | EKG ---
Test Reason : Blood Pressure : / mmHG Vent. Rate : 115 BPM Atrial Rate : 115 BPM P-R Int : 144 ms QRS Dur : 082 ms QT Int : 322 ms P-R-T Axes : 053 -27 013 degrees QTc Int : 445 ms SINUS TACHYCARDIA NONSPECIFIC ST ABNORMALITY ABNORMAL ECG WHEN COMPARED WITH ECG OF 13-MAY-2017 19:32, NO SIGNIFICANT CHANGE WAS FOUND Confirmed by BIRDIE PRATER MD ([id number]) on 08/08/2017 10:08:11 AM Referred By: JOSÉ MIGUEL Confirmed By:BIRDIE PRATER MD
== END 2017-08-07 12:27 | disposition left against medical advice (07) | DRG 442 ==
LOC: FER 11:58 → J7W 18:40 → JICU 20:19
PROVIDERS: ADMIT Internal Medicine; ATTEND Nurse Practitioner Acute Care
PROC: HZ2ZZZZ Detoxification Services for Substance Abuse Treatment (ICD-10-PCS; principal; 2017-08-06)
DX: K72.00 Acute and subacute hepatic failure without coma (principal); F10.230 Alcohol dependence with withdrawal, uncomplicated; E87.2 Acidosis; Y90.8 Blood alcohol level of 240 mg/100 ml or more; I16.0 Hypertensive urgency; F10.220 Alcohol dependence with intoxication, uncomplicated; K70.10 Alcoholic hepatitis without ascites; E87.6 Hypokalemia; E83.39 Other disorders of phosphorus metabolism; F43.10 Post-traumatic stress disorder, unspecified; I10 Essential (primary) hypertension; E66.9 Obesity, unspecified; Z68.30 Body mass index [BMI] 30.0-30.9, adult; F32.9 Major depressive disorder, single episode, unspecified; L29.8 Other pruritus; T48.4X5A Adverse effect of expectorants, initial encounter; E78.2 Mixed hyperlipidemia
CPT/HCPCS: 36415; 71010-TC; 80048; 80053; 80074; 80076; 80307; 82009; 82465; 82550; 82553; 83036; 83605; 83690; 83735; 83930; 84100; 84484; 85025; 85610; 85730; 86704; 86708; 86803; 93005; 93010; 93306-TC; 99285-25; J1644

== ENCOUNTER 2018-01-26 11:15 | Emergency (ER) | payer SELFPAY ==
[2018-01-26 12:46] VITALS: BMI 30.8
--- NOTE | 2018-01-26 13:44 | PDOC ---
History of Present Illness - General Chief Complaint: Alcohol intoxication Stated Complaint: INTOXICATED Time Seen by Provider: 01/26/18 12:38 History Source: Patient Exam Limitations: Intoxication - History of Present Illness Initial Comments: 01/26/18 13:43 47y M hx of htn, cad, presents with chest pain sine last night, pt endorses pain to the substernal/epigastric area since last night associated with some sob , nuasea. dnies fever/chills, numbness/tingling/weakness, worsening on exertion. endorses drinking alot of etoh last night. Past History - Past Medical History Allergies/Adverse Reactions: Allergies Allergy/AdvReac Type Severity Reaction Status Date / Time acetylcysteine Allergy Hives Verified 08/05/17 17:19 [From Acetadote] Home Medications: Ambulatory Orders Cetirizine HCl [Zyrtec -] 10 mg PO DAILY 02/13/17 Duloxetine HCl 60 mg PO ASDIR 02/13/17 Escitalopram Oxalate [Lexapro -] 10 mg PO DAILY 02/13/17 Amlodipine Besylate [Norvasc -] 10 mg PO DAILY #30 tablet 02/17/17 Folic Acid - 1 mg PO DAILY tablet 02/17/17 COPD: No HTN: Yes Liver Disease: Yes Psychiatric Problems: Yes (depression ptsd) - Surgical History Cholecystectomy: Yes - Suicide/Smoking/Psychosocial Hx Smoking History: Never smoked Have you smoked in the past 12 months: No Hx Alcohol Use: Yes (TODAY) Drug/Substance Use Hx: No Substance Use Type: Alcohol Review of Systems - Review of Systems Able to Perform ROS?: Yes Comments:: 01/26/18 13:45 Constitutional - no reported Fever, Chills, HEENT: no reported vision changes, sore throat Respiratory: +sob, no reported cough, hemoptysis Cardiac: +chest pain no reported , palpitations, light headedness, leg swelling Abd/GI: no reported abd pain, nausea, vomiting, blood per rectum, melena, diarrhea : no reported dysuria, frequency, discharge Musculskelatal - no reported back pain, joint swelling skin - no reported bruising, erythema, rash neurological: no reported headache, numbness, focal weakness, tingling, ataxia, hematologic: no reported easy bruising, easy bleeding *Physical Exam - Vital Signs Last Vital Signs Temp Pulse Resp BP Pulse Ox 97.8 F 102 H 19 140/83 98 01/26/18 12:33 01/26/18 12:33 01/26/18 12:33 01/26/18 12:33 01/26/18 12:33 - Physical Exam Comments: 01/26/18 13:45 GENERAL: The patient is awake, alert, and fully oriented, Nontoxic - in no acute distress. Smells of alcohol HEAD: Normocephalic, atraumatic. EYES: extraocular movements intact, sclera anicteric, conjunctiva clear. ENT: Normal voice, Moist mucous membranes. NECK: Normal range of motion, supple LUNGS: Breath sounds equal, clear to auscultation bilaterally. No wheezes, no rhonchi, no rales. HEART: Regular rate and rhythm, normal S1 and S2 without murmur, rub or gallop. ABDOMEN: Soft, nontender, normoactive bowel sounds. No guarding, no rebound. . No CVA tenderness EXTREMITIES: Normal range of motion, no edema. NEUROLOGICAL: No facial assymetry, Normal speech, moving all 4 extremities spontaneously and symmetrically PSYCH: Normal mood, normal affect. SKIN: Warm, Dry, normal turgor, Moderate Sedation - Procedure Monitoring Vital Signs: Vital Signs Temp Pulse Resp BP Pulse Ox 97.8 F 102 H 19 140/83 98 01/26/18 12:33 01/26/18 12:33 01/26/18 12:33 01/26/18 12:33 01/26/18 12:33 Heart Score/ECG Review - ECG Impressions Comment:: 01/26/18 13:46 Twelve-lead EKG was performed and reviewed by me. There is normal sinus rhythm with a normal rate. The axis is normal. The intervals are normal. There is normal R wave progression T wave flattening in lead 3 ED Treatment Course - LABORATORY CBC & Chemistry Diagram: 01/26/18 14:50 01/26/18 14:35 - RADIOLOGY Radiology Studies Ordered: Category Date Time Status CHEST PA & LAT [RAD] Stat Radiology 01/26/18 13:42 Ordered Medical Decision Making - Medical Decision Making 01/26/18 18:53 pt presents with intoxiation, also complaints of some chest/epigastric pain trop neg x 1, ekg wnl lipase stil pending to r/o pancreatitis i suspect pt may have had more alohol while he was here, he is still somnolent, smells of etoh will continue to monitor will obtain 2nd trop now pt signed out to evening team to fu with second trop and eval for sobriety *DC/Admit/Observation/Transfer Diagnosis at time of Disposition: Alcohol intoxication - Discharge Dispostion Disposition: HOME Condition at time of disposition: Stable - Referrals - Patient Instructions Printed Discharge Instructions: DI for Alcohol Abuse Additional Instructions: Drink plenty of fluids Acetaminophen as needed for headache Avoid excessive alcohol intake follow-up with your doctor within the next 2-3 days - Post Discharge Activity
[2018-01-26] MEDS ORDERED: MAG HYDROX/AL HYDROX/SIMETH -MYLANTA- ORAL SUSPENSION PO ONE (13:48)
[2018-01-26] MEDS ORDERED: FAMOTIDINE 20 MG/50 ML IVPB 20 MG in PREMIX 50 IVPB ONE (13:48)
[2018-01-26] MEDS ORDERED: FAMOTIDINE 20 MG/50 ML IVPB 20 MG/50 ML MG IVPB ONE (14:46)
[2018-01-26 15:15] LABS: BASO % 0.8 % (0-2.0); EOS % 0.2 % (0-4.5); HEMATOCRIT 43.7 % (35.4-49); HEMOGLOBIN 15.1 GM/dl (11.7-16.9); LYMPH % 28.6 % (8-40); MCHC 34.5 g/dl (32.0-35.9); MEAN PLT VOLUME 8.2 fl (7.5-11.1); MONO % 5.6 % (3.8-10.2); NEUT % 64.8 % (42.8-82.8); PLATELET COUNT 364 K/MM3 (134-434); RDW 15.2 % (11.9-15.9); WHITE BLOOD COUNT 4.9 K/mm3 (4.0-10.8)
[2018-01-26 15:37] LABS: ALBUMIN 4.5 g/dl (3.5-5.0); ALK PHOS 77 U/L (32-92); ANION GAP 11 (8-16); BILIRUBIN,TOTAL 0.4 mg/dl (0.2-1.0); BLOOD UREA NITROGEN 12 mg/dl (7-18); CALCIUM 9.3 mg/dl (8.4-10.2); CHLORIDE 102 mmol/L (98-107); CO2 27 mmol/L (22-28); GLUCOSE,RANDOM 135 mg/dl (74-106); POTASSIUM 3.8 mmol/L (3.5-5.1); SGOT/AST 34 U/L (10-42); SGPT/ALT 56 U/L (10-40); SODIUM 140 mmol/L (136-145); TOT PROT 7.8 g/dl (6.4-8.3)
[2018-01-26 15:49] LABS: CREATININE < 0.8 mg/dl (0.6-1.3)
--- NOTE | 2018-01-26 20:11 | PDOC ---
*Physical Exam - Vital Signs Last Vital Signs Temp Pulse Resp BP Pulse Ox 97.8 F 102 H 19 140/83 98 01/26/18 12:33 01/26/18 12:33 01/26/18 12:33 01/26/18 12:33 01/26/18 12:33 ED Treatment Course - LABORATORY CBC & Chemistry Diagram: 01/26/18 14:50 01/26/18 14:35 - ADDITIONAL ORDERS Additional order review: Laboratory Results 01/26/18 01/26/18 01/26/18 14:50 14:35 14:35 Sodium 140 Potassium 3.8 Chloride 102 Carbon Dioxide 27 D Anion Gap 11 BUN 12 D Creatinine < 0.8 Creat Clearance w eGFR > 60 Random Glucose 135 H D Calcium 9.3 Total Bilirubin 0.4 D AST 34 D ALT 56 H D Alkaline Phosphatase 77 D Creatine Kinase 193 Creatine Kinase Index 0.7 CK-MB (CK-2) 1.5 Troponin I < 0.03 Total Protein 7.8 Albumin 4.5 01/26/18 14:50 RBC 5.20 MCV 84.0 MCHC 34.5 RDW 15.2 D MPV 8.2 D Neutrophils % 64.8 D Lymphocytes % 28.6 D Monocytes % 5.6 Eosinophils % 0.2 D Basophils % 0.8 D - Medications Given in the ED: ED Medications Discontinued Medications Generic Name Dose Route Start Last Admin Trade Name Freq PRN Reason Stop Dose Admin Al Hydroxide/Mg Hydroxide 30 ml 01/26/18 13:48 01/26/18 18:18 Mylanta Suspension - PO 01/26/18 13:49 Not Given ONCE ONE Famotidine/Sodium Chloride 20 50 mls @ 100 mls/hr 01/26/18 13:48 01/26/18 14: 50 mg/ Miscellaneous IVPB 01/26/18 14:17 100 mls/hr ONCE ONE Administration Progress Note - Progress Note Progress Note: Care of this patient received from Dr. Mike. Second troponin not elevated. Lipase is normal. Patient discharged with instructions to drink plenty of fluids/acetaminophen as needed for pain. *DC/Admit/Observation/Transfer Diagnosis at time of Disposition: Alcohol intoxication Qualifiers: Complication of substance-induced condition: uncomplicated Qualified Code(s): F10.920 - Alcohol use, unspecified with intoxication, uncomplicated - Discharge Dispostion Disposition: HOME Condition at time of disposition: Stable - Referrals - Patient Instructions Printed Discharge Instructions: DI for Alcohol Abuse Additional Instructions: Drink plenty of fluids Acetaminophen as needed for headache Avoid excessive alcohol intake follow-up with your doctor within the next 2-3 days - Post Discharge Activity
[2018-01-26 21:26] VITALS: BP 125/80; PULSE 93; TEMP 98.9
--- NOTE | 2018-01-27 16:20 | EKG ---
Test Reason : Blood Pressure : / mmHG Vent. Rate : 097 BPM Atrial Rate : 097 BPM P-R Int : 152 ms QRS Dur : 084 ms QT Int : 334 ms P-R-T Axes : 055 -01 015 degrees QTc Int : 424 ms NORMAL SINUS RHYTHM NONSPECIFIC ST ABNORMALITY ABNORMAL ECG WHEN COMPARED WITH ECG OF 05-AUG-2017 17:54, NO SIGNIFICANT CHANGE WAS FOUND Confirmed by MD Arnold, Lefty ([id number]) on 01/27/2018 4:20:03 PM Referred By: GARY Confirmed By:Lefty Barrett MD
== END 2018-01-26 22:26 | disposition home or self-care (01) ==
LOC: FER 11:15
PROC: 3E033GC Introduction of Other Therapeutic Substance into Peripheral Vein, Percutaneous Approach (ICD-10-PCS; principal; 2018-01-26)
DX: F10.920 Alcohol use, unspecified with intoxication, uncomplicated (principal)
CPT/HCPCS: 36415; 80053; 82550; 82553; 83690; 84484; 85025; 93005; 99284-25

== ENCOUNTER 2024-06-13 22:44 | Emergency (ER) | payer BC, OTHER ==
[2024-06-13] MEDS ORDERED: MAG HYDROX/AL HYDROX/SIMETH 30 ML UNIT-DOSE CUP ONE (22:54)
[2024-06-13] MEDS: MAG HYDROX/AL HYDROX/SIMETH 30 ML UNIT-DOSE CUP PO ONE (22:57)
[2024-06-13] MEDS ORDERED: FOLIC ACID 5 MG/1 ML ONE (23:50)
[2024-06-13] MEDS ORDERED: MULTIVIT INJ. ADULT COMBO WITH VIT K 1 COMBO 10 ML VIAL IV ONE (23:51)
[2024-06-13] MEDS ORDERED: THIAMINE HCL 200 MG/2 ML VIAL ONE (23:51)
[2024-06-14] MEDS ORDERED: FAMOTIDINE 20 MG/50 ML IVPB 20 MG/50 ML MG IVPB ONE (00:37)
[2024-06-14] MEDS: FAMOTIDINE 20 MG/50 ML IVPB 20 MG/50 ML MG IVPB ONE (00:40)
[2024-06-14] MEDS: FOLIC ACID INJECTION - 1 MG, THIAMINE HCL 100 MG, MULTIVIT INJECTION ADULT 10 ML in SOD... IVPB ONE (00:40)
[2024-06-14 01:29] LABS: BASO % 0.4 % (0-2.0); EOS % 0.1 % (0-4.5); HEMATOCRIT 40.5 % (35.4-49); HEMOGLOBIN 13.9 GM/dL (11.7-16.9); LYMPH % 15.7 % (8-40); MCH 29.4 pg (25.7-33.7); MCHC 34.2 g/dl (32.0-35.9); MEAN PLT VOLUME 8.4 fl (7.5-11.1); MONO % 3.7 % (3.8-10.2); NEUT % 80.1 % (42.8-82.8); PLATELET COUNT 310 10^3/uL (134-434); RBC 4.72 M/mm3 (4.00-5.60); RDW 16.7 % (11.9-15.9); WHITE BLOOD COUNT 5.2 K/mm3 (4.0-10.0)
[2024-06-14 01:58] LABS: CHLORIDE 102 mmol/L (98-107); POTASSIUM 3.3 mmol/L (3.5-5.1); SODIUM 140 mmol/L (136-145)
[2024-06-14 02:00] LABS: ALBUMIN 4.1 g/dl (3.4-5.0); CALCIUM 7.9 mg/dL (8.5-10.1)
[2024-06-14 02:01] LABS: ANION GAP 16 mmol/L (4-13); BLOOD UREA NITROGEN 11.6 mg/dL (7-18); CO2 22 mmol/L (21-32); GLUCOSE,RANDOM 158 mg/dL (74-106)
[2024-06-14 02:04] LABS: INR 0.97 (0.83-1.09); PROTHROMBIN TIME (PATIENT) 11.2 SEC (9.7-13.0)
[2024-06-14 02:06] LABS: CREATININE 0.8 mg/dL (0.55-1.3); SGOT/AST 71 U/L (15-37); SGPT/ALT 61 U/L (13-61)
[2024-06-14] MEDS ORDERED: MAGNESIUM SULFATE IN WATER 2 GM/50 ML IVPB IVPB ONE (02:06)
[2024-06-14 02:07] LABS: ALK PHOS 128 U/L (45-117); BILIRUBIN,TOTAL 0.6 mg/dL (0.2-1)
[2024-06-14] MEDS ORDERED: POTASSIUM CHLORIDE TABS 20 MEQ TABLET.ER (FP) PO ONE (02:07)
[2024-06-14] MEDS ORDERED: ASPIRIN 81 MG CHEWABLE TABLETS ONE (02:14)
[2024-06-14] MEDS ORDERED: LACTULOSE 20 GM/30 ML UDC (FOR ORAL USE ONLY) ONE (02:16)
[2024-06-14] MEDS: MAGNESIUM SULF 50% (8.12 MEQ/2 ML-1 GM VIAL) IVPB ONE (02:30)
[2024-06-14] MEDS: POTASSIUM CHLORIDE TABS 20 MEQ TABLET.ER (FP) PO ONE (02:30)
[2024-06-14] MEDS: morphine CARPU-JECT 2 MG/1 ML DISP.SYRIN IVPUSH ONE (02:31)
[2024-06-14] MEDS: ASPIRIN 81 MG CHEWABLE TABLETS PO ONE (02:31)
[2024-06-14] MEDS: LACTULOSE 20 GM/30 ML UDC (FOR ORAL USE ONLY) PO ONE (02:31)
[2024-06-14] MEDS ORDERED: KETOROLAC TROMETHAMINE 30 MG/1 ML VIAL ONE (03:59)
[2024-06-14] MEDS: KETOROLAC TROMETHAMINE 30 MG/1 ML VIAL IVPUSH ONE (04:09)
[2024-06-14 04:32] LABS: LACTIC ACID 2.5 mmol/L (0.4-2.0)
[2024-06-14 04:58] LABS: COCAINE, UR NEGATIVE (NEGATIVE); METHADONE, UR NEGATIVE (NEGATIVE); OPIATES, URI NEGATIVE (NEGATIVE); PHENCYCLIDINE,URINE NEGATIVE (NEGATIVE); URINE BARBITURATES NEGATIVE (NEGATIVE)
[2024-06-14] MEDS ORDERED: chlordiazePOXIDE HCL 25 MG CAPSULE ONE (05:05)
[2024-06-14] MEDS ORDERED: amLODIPine BESYLATE 5 MG TABLET (FP) ONE (05:05)
[2024-06-14 05:06] LABS: URINE AMPHETAMINES NEGATIVE (NEGATIVE); URINE BENZODIAZEPINES POSITIVE (NEGATIVE)
[2024-06-14] MEDS ORDERED: ACETAMINOPHEN INJECTION 100 ML ONE (05:21)
[2024-06-14] MEDS: amLODIPine BESYLATE 5 MG TABLET (FP) PO ONE ×2 (05:25→10:09)
[2024-06-14] MEDS: ACETAMINOPHEN 1000 MG/100 ML BAG IVPB ONE (05:25)
[2024-06-14] MEDS: chlordiazePOXIDE HCL 25 MG CAPSULE PO ONE (05:25)
[2024-06-14] MEDS: LORazepam 1 MG TABLET PO PRN (06:14)
[2024-06-14] MEDS: CEFTRIAXONE 2 GM in DEXTROSE 5%-WATER 100 ML IVPB ONE (06:16)
[2024-06-14 06:23] VITALS: BMI 33.8
[2024-06-14] MEDS: IBUPROFEN 600 MG TABLET (FP) PO PRN (08:00)
[2024-06-14] MEDS: LACTATED RINGERS SOLUTION 1,000 ML/1,000 ML INFUS.BAG IV SCH (08:06)
[2024-06-14 09:34] LABS: MAGNESIUM 2.4 mg/dL (1.8-2.4)
[2024-06-14] MEDS: LISINOPRIL 20 MG TABLET PO SCH (09:54)
[2024-06-14] MEDS: FOLIC ACID 1 MG TABLET (FP) PO SCH (09:54)
[2024-06-14] MEDS: THIAMINE 100 MG TABLET PO SCH (09:54)
[2024-06-14] MEDS: LACTULOSE 20 GM/30 ML UDC (FOR ORAL USE ONLY) PO SCH (09:59)
[2024-06-14 10:01] LABS: LACTIC ACID 2.2 mmol/L (0.4-2.0)
[2024-06-14] MEDS: FENOFIBRIC ACID 135 MG CAP PO SCH (11:53)
[2024-06-14] MEDS ORDERED: LORazepam 1 MG TABLET PO PRN (13:16)
[2024-06-14] MEDS: DICYCLOMINE HCL 10 MG CAPSULE PO SCH (13:40)
[2024-06-14] MEDS: chlordiazePOXIDE HCL 25 MG CAPSULE PO SCH (14:42)
[2024-06-14] MEDS: IBUPROFEN 800 MG/8 ML IJ IVPB ONE (22:01)
[2024-06-14] MEDS: DEXTROSE 5%-0.45% SALINE 1,000 ML IV SCH (22:04)
[2024-06-15 08:45] LABS: INR 0.93 (0.83-1.09); PROTHROMBIN TIME (PATIENT) 10.6 SEC (9.7-13.0)
[2024-06-15 08:53] LABS: ALBUMIN 4.5 g/dl (3.4-5.0); BILIRUBIN,TOTAL 0.9 mg/dl (0.2-1); CALCIUM 8.6 mg/dl (8.5-10.1); CREATININE 0.6 mg/dl (0.6-1.3); POTASSIUM 3.3 mmol/L (3.5-5.1); TOT PROT 7.3 g/dl (6.4-8.2)
[2024-06-15] MEDS: amLODIPine BESYLATE 10 MG TABLET (FP) PO SCH (09:37)
[2024-06-15] MEDS: ENOXAPARIN NA (PORCINE) 40 MG/0.4 ML DISP.SYRIN SQ SCH (09:38)
[2024-06-15] MEDS: CEFTRIAXONE 2 GM in DEXTROSE 5%-WATER - 50 ML IVPB SCH (09:38)
[2024-06-15] MEDS: chlordiazePOXIDE HCL 10 MG CAPSULE PO SCH (11:21)
[2024-06-15 11:33] LABS: HEMATOCRIT 39.6 % (35.4-49); HEMOGLOBIN 12.8 G/dL (11.7-16.9); MCH 29.2 pg (25.7-33.7); MCHC 32.3 g/dl (32.0-35.9); MEAN CELL VOLUME 90.2 fl (80-96); MEAN PLT VOLUME 9.2 fl (7.5-11.1); PLATELET COUNT 231.8 10^3/uL (134-434); RBC 4.39 10^6/uL (4.00-5.60); RDW 16.1 % (11.9-15.9); WHITE BLOOD COUNT 4.1 10^3/uL (4.0-10.8)
[2024-06-15 13:22] LABS: PLATELET ESTIMATE ADEQUATE
[2024-06-15] MEDS: POTASSIUM CHLORIDE ORAL LIQUID 20 MEQ/15 ML PO ONE (17:16)
[2024-06-15 22:52] VITALS: RESP 18
[2024-06-16 05:56] VITALS: PULSE 95
[2024-06-16 08:49] LABS: ALBUMIN 4.2 g/dl (3.4-5.0); BILIRUBIN,TOTAL 0.8 mg/dl (0.2-1); CALCIUM 8.6 mg/dl (8.5-10.1); CREATININE 0.6 mg/dl (0.6-1.3); POTASSIUM 3.4 mmol/L (3.5-5.1); TOT PROT 6.8 g/dl (6.4-8.2)
[2024-06-16 09:19] LABS: HEMATOCRIT 40.3 % (35.4-49); MCH 29.6 pg (25.7-33.7); MCHC 32.3 g/dl (32.0-35.9); MEAN CELL VOLUME 91.6 fl (80-96); MEAN PLT VOLUME 9.6 fl (7.5-11.1); PLATELET COUNT 207.3 10^3/uL (134-434); RDW 16.5 % (11.9-15.9); WHITE BLOOD COUNT 4.3 10^3/uL (4.0-10.8)
[2024-06-16 09:22] LABS: ADD RBC MORPHOLOGY YES
[2024-06-16 10:20] VITALS: BP 155/98; TEMP 98.2
[2024-06-16 11:16] LABS: PLATELET ESTIMATE ADEQUATE
[2024-06-16] MEDS: POTASSIUM CHLORIDE ORAL LIQUID 20 MEQ/15 ML PO ONE (11:20)
[2024-06-16 11:21] LABS: MACROCYTOSIS 1+; OVALOCYTE 1+; TARGET CELLS 2+; TEAR DROP CELLS 1+
[2024-06-16] MEDS ORDERED: chlordiazePOXIDE HCL 10 MG CAPSULE PO SCH (12:00)
== END 2024-06-16 11:59 | disposition home or self-care (01) ==
LOC: FER 22:44 → FM/S 06-14 05:10 → INTOOBSV 06-14 05:10 → UNDOADMOB 06-14 05:10 → FM/S 06-14 07:18
PROVIDERS: ADMIT Internal Medicine
PROC: 3E03329 Introduction of Other Anti-infective into Peripheral Vein, Percutaneous Approach (ICD-10-PCS; principal; 2024-06-14)
PROC: 3E033GC Introduction of Other Therapeutic Substance into Peripheral Vein, Percutaneous Approach (ICD-10-PCS; 2024-06-14)
PROC: 3E033NZ Introduction of Analgesics, Hypnotics, Sedatives into Peripheral Vein, Percutaneous Approach (ICD-10-PCS; 2024-06-14)
PROC: 3E0333Z Introduction of Anti-inflammatory into Peripheral Vein, Percutaneous Approach (ICD-10-PCS; 2024-06-14)
PROC: 3E033GC Introduction of Other Therapeutic Substance into Peripheral Vein, Percutaneous Approach (ICD-10-PCS; 2024-06-14)
PROC: 3E033NZ Introduction of Analgesics, Hypnotics, Sedatives into Peripheral Vein, Percutaneous Approach (ICD-10-PCS; 2024-06-14)
PROC: 3E033NZ Introduction of Analgesics, Hypnotics, Sedatives into Peripheral Vein, Percutaneous Approach (ICD-10-PCS; 2024-06-14)
DX: F10.920 Alcohol use, unspecified with intoxication, uncomplicated (principal); E87.20 Acidosis, unspecified; B17.9 Acute viral hepatitis, unspecified; K52.9 Noninfective gastroenteritis and colitis, unspecified; Y90.9 Presence of alcohol in blood, level not specified; Z20.822 Contact with and (suspected) exposure to COVID-19
CPT/HCPCS: 36415; 71045-TC-FY; 74177-TC; 80053; 80061; 80307; 82140; 82550; 82553; 82962; 83036; 83605; 83690; 83735; 84100; 84478; 84484; 85025; 85610; 85651; 86140; 87040; 87045; 87046; 87635; 93005; 96365; 96375; 96376; 99285-25; G0378; J0131